=== PATIENT | female | born 1945 | race Caucasian/White ===

== ENCOUNTER 2020-07-17 01:22 | Outpatient (CLI) | payer MEDICARE, SELFPAY ==
[2020-07-17 18:46] LABS: SARS-CoV-2 RNA PCR Negative
== END 2020-07-17 01:23 | disposition home or self-care (01) ==
LOC: ANHCOVIDDT 01:22
PROVIDERS: PCP Family Medicine; Visit Provider Internal Medicine Gastroenterology
DX: Z01.812 Encounter for preprocedural laboratory examination (principal); Z20.822 Contact with and (suspected) exposure to COVID-19
CPT/HCPCS: C9803; U0003; U0005

== ENCOUNTER 2020-07-20 01:38 | Day surgery (SDC) | payer MEDICARE, SELFPAY ==
[2020-07-02 09:28] VITALS: BMI 29.0
[2020-07-20 07:54] VITALS: BP 172/72; PULSE 88; RESP 16; TEMP 36.1; O2SAT 99
[2020-07-20] MEDS: LACTATED RINGERS 1,000 ML 150 ML IV CONT (08:06)
--- NOTE | 2020-07-20 08:40 | WPDANESEPPF ---
Anes - Initial Pre Proc Eval Procedure: Operation Date: 07/20/20 09:00 Proposed Procedures p Screening Colonoscopy - Manolo Ryan MD Date/Time: 07/20/20 08:40 Surgeon: Manolo Ryan MD Pre Op Diagnosis: neoplasm screening Patient Data Age: 75 Gender: F Height: 5 ft 2 in Weight: 71 kg Last Vital Signs Temp 97 F L 07/20/20 07:54 Pulse 88 07/20/20 07:54 Resp 16 07/20/20 07:54 BP 172/72 H 07/20/20 07:54 Pulse Ox 99 07/20/20 07:54 Allergies Allergy/AdvReac Type Severity Reaction Status Date / Time No Known Allergies Allergy Verified 07/20/20 07:53 Home Medications Medication Instructions Recorded Confirmed Type calcium carbonate 600 mg(1,500 1 tablet PO DAILY 06/01/20 07/02/20 History mg)-vitamin D3 800 unit chewable tablet naproxen sodium [Aleve] 220 mg PO DAILY 07/02/20 07/02/20 History Patient hx anesthesia problems: none Family hx anesthesia problems: none PMFSH Past Medical History Medical History (Updated 07/20/20 @ 08:40 by Lev Hayden MD) Hyperlipidemia Osteoarthritis Surgical History Surgical History H/O: hysterectomy (~1994) History of cholecystectomy (Unknown) Family History Family History Father Hypertension Family history of chronic obstructive pulmonary disease Mother Hypertension Family history of diabetes mellitus in first degree relative Sibling Hypertension Social History Social History Smoking status: Never smoker Alcohol intake: never Substance use: never Substance use type: does not use Living arrangements: with family Gender identity (if verbalized by the patient): Female Spiritual care concerns: No Anes - Eval Final PreProcedure Day of Procedure 07/20/20 08:40 Patient weight: normal Heart: regular rate and rhythm Lungs: clear to auscultation Airway: Mallampati scale class II Neurological: alert and oriented Last oral intake: >/= 8 hours ASA classification: II Emergent: no Anesthetic plan: proceed Anesthesia type and monitoring: general GIVS and standard monitoring Informed Consent: The patient's anesthetic plan and its attendant risks and benefits were discussed with the patient/family/POA. Questions were solicited and answers provided to the satisfaction of the patient/family/POA.
--- NOTE | 2020-07-20 08:50 | PM.HPGS ---
History of Present Illness History of Present Illness Consent: Risks, benefits, and alternatives have been discussed and questions answered. Patient agrees to proceed with procedure. Chief complaint: neoplasm screening Narrative: Ashley Strong is a 75 year old female here for screening colonoscopy, she had one at 50 yo Review of Systems Constitutional: Constitutional: Denies headache(s) and Denies weakness Eyes: Eyes: Denies blurry vision ENT: Reports Normal hearing present, Denies headache(s) and Denies neck pain Cardiovascular: Cardiovascular: Denies chest pain and Denies dyspnea Respiratory: Respiratory: Denies dyspnea Gastrointestinal: Gastrointestinal: Reports no additional gastrointestinal complaints Genitourinary: Genitourinary: Denies dysuria Musculoskeletal: Musculoskeletal: Denies neck pain Integumentary/Breasts: Skin/Breast: Denies dry skin Neurologic: Reports Normal hearing present, Denies headache(s) and Denies weakness Psychiatric: Psychiatric: Denies anxiety Endocrine: Endocrine: Denies change in body appearance Hematologic/Lymphatic: Hematologic/Lymphatic: Denies easy bleeding Allergic/Immunologic: Allergic/Immunologic: Denies urticaria PMFSH Past Medical History Medical History (Updated 07/20/20 @ 08:51 by Manolo Ryan MD) Colon cancer screening Hyperlipidemia Osteoarthritis Surgical History Surgical History H/O: hysterectomy (~1994) History of cholecystectomy (Unknown) Family History Family History Father Hypertension Family history of chronic obstructive pulmonary disease Mother Hypertension Family history of diabetes mellitus in first degree relative Sibling Hypertension Social History Social History Smoking status: Never smoker Alcohol intake: never Substance use: never Substance use type: does not use Living arrangements: with family Gender identity (if verbalized by the patient): Female Spiritual care concerns: No Meds Home Medications and Allergies Home Medications Medication Instructions Recorded Confirmed Type calcium carbonate 600 mg(1,500 1 tablet PO DAILY 06/01/20 07/02/20 History mg)-vitamin D3 800 unit chewable tablet naproxen sodium [Aleve] 220 mg PO DAILY 07/02/20 07/02/20 History Allergies Allergy/AdvReac Type Severity Reaction Status Date / Time No Known Allergies Allergy Verified 07/20/20 07:53 Vital Signs Vital Signs - 24 hr 07/20/20 07:54 Temperature 97 F L Pulse Rate 88 Respiratory Rate 16 Blood Pressure 172/72 H Pulse Oximetry 99 Exam Const: General: comfortable and no acute distress HENMT: General nose exam: Normal nares present Eyes: General: appearance normal, both eyes and all related structures Neck: Neck: no JVD Resp: Auscultation: clear to auscultation bilaterally Cardio: Rate: regular rate Rhythm: regular rhythm GI: Inspection: non-distended GI Palp: Yes Soft to palpation Skin: General skin exam: normal color Neuro: General: gait normal Speech: normal speech Extrem: General: normal to inspection Psych: Mental Status: mental status grossly normal Assessment and Plan Assessment and plan (1) Colon cancer screening: Code(s): Z12.11 - Encounter for screening for malignant neoplasm of colon Status: Acute Assessment and Plan: will proceed with colonoscopy
[2020-07-20 09:08] VITALS: BP 133/73; PULSE 80; RESP 19; O2SAT 98
[2020-07-20 09:18] VITALS: BP 146/72; PULSE 75; RESP 20; O2SAT 98
[2020-07-20 09:28] VITALS: BP 144/75; PULSE 77; RESP 20; O2SAT 98
== END 2020-07-20 09:54 | disposition home or self-care (01) ==
PROVIDERS: PCP Family Medicine; Visit Provider Internal Medicine Gastroenterology
PROC: 0DJD8ZZ Inspection of Lower Intestinal Tract, Via Natural or Artificial Opening Endoscopic (ICD-10-PCS; CPT 45378; principal; 2020-07-20 09:00)
DX: Z12.11 Encounter for screening for malignant neoplasm of colon (principal); K57.30 Diverticulosis of large intestine without perforation or abscess without bleeding; E78.5 Hyperlipidemia, unspecified; M19.90 Unspecified osteoarthritis, unspecified site
CPT/HCPCS: G0121; C9803; J2704; J7120; U0003; U0005

== ENCOUNTER → 2021-07-26 10:09 | Outpatient (CLI) | payer MEDICARE, SELFPAY ==
--- NOTE | ~2021-07-26 | XR_ITS ---
EXAMINATION: XR chest 2V DATE: 07/26/2021 10:22 INDICATION: Chronic cough. Prior COVID. TECHNIQUE: PA and lateral views of the chest were obtained. COMPARISON: None FINDINGS: Indeterminate 1.2 cm nodular opacity at the lingula. The lungs are otherwise clear with no other airs pace opacities, pulmonary edema, pleural effusion or pneumothorax. The cardiomediastinal silhouette i s normal. Mild thoracic kyphosis and mild dextrocurvature with moderate to severe spondylosis. Cholec ystectomy clips in right upper quadrant. IMPRESSION: 1. Indeterminate 1.2 cm nodule at the lingula. Recommend chest CT for further evaluation. Reviewed, dictated and finalized at location A. LIANCE TECHNICIAN IMPRESSION: 1. Indeterminate 1.2 cm nodule at the lingula. Recommend chest CT for further e valuation.
== END ==
PROVIDERS: PCP Nurse Practitioner Family; Visit Provider Nurse Practitioner Family
DX: R05.3 Chronic cough (principal)
CPT/HCPCS: 71046

== ENCOUNTER 2021-08-16 07:25 | Outpatient (CLI) | payer MEDICARE, SELFPAY ==
--- NOTE | 2021-08-16 07:26 | ECHO_ITS ---
Patient Info Name: Ashley Strong Age: 76 years : 1945 Gender: Female Ht: 62 in Wt: 158 lbs BSA: 1.79 m2 HR: 97 bpm BP: 171 / 83 mmHg Heart Rhythm: Sinus Rhythm Technical Quality: Fair Exam Date: 08/16/2021 7:42 AM Exam Location: [facility] Patient Status: Outpatient Admit Date: 08/16/2021 Staff Ordering Physician: Eda Graves NP Generator Worker: Mally Pinzon RDCS Attending Provider: Eda Graves NP Referring Physician: Ely BECERRA; Exam Type: CA echo doppler color flow Study Info Indications R94.31 - Abnormal electrocardiogram ECG EKG Complete two-dimensional, color flow and Doppler transthoracic echocardiogram is performed. Strain analysis performed. Summary 1. Complete two-dimensional, color flow and Doppler transthoracic echocardiogram is performed. 2. Strain analysis performed. 3. Left ventricular chamber dimension is normal. 4. Left ventricular systolic function is normal, estimated at 65-70%. 5. The left ventricular diastolic function is grade I diastolic dysfunction. 6. There is mildly increased left ventricular wall thickness. 7. Global longitudinal strain is normal at -19 %. 8. Left atrial chamber dimension is mildly enlarged. 9. There is mild tricuspid valve regurgitation. 10. Mild pulmonary hypertension, estimated pulmonary arterial systolic pressure is 43 mmHg. Left Ventricle Left ventricular chamber dimension is normal. Left ventricular systolic function is normal, estimated at 65-70%. There is mildly increased left ventricular wall thickness. The left ventricular diastolic function is grade I diastolic dysfunction. Global longitudinal strain is normal at -19 %. Right Ventricle Right ventricular chamber dimension is normal. Right ventricular systolic function is normal. Left Atria Left atrial chamber dimension is mildly enlarged. Right Atria Right atrial chamber dimension is normal. Atrial Septum Intact interatrial septum visualized by color flow imaging. Aortic Valve The aortic valve is trileaflet. There is no aortic valve sclerosis. There is no aortic valve stenosis. There is trace aortic valve regurgitation. Pulmonic Valve The pulmonic valve is normal. There is no pulmonic valve stenosis. There is trace pulmonic regurgitation. Mitral Valve The mitral valve has normal leaflets. There is no mitral valve stenosis. There is trace mitral valve regurgitation. Tricuspid Valve The tricuspid valve leaflets are normal. There is no significant tricuspid valve stenosis. There is mild tricuspid valve regurgitation. Mild pulmonary hypertension, estimated pulmonary arterial systolic pressure is 43 mmHg. Pericardium/Pleural The pericardium appears normal. There is no pericardial effusion. Inferior Vena Cava Normal inferior vena cava with >50% collapse upon inspiration consistent with normal right atrial pressure, 10 mmHg. Aorta The aortic root size at the sinus of Valsalva is normal. Left Ventricular Outflow Tract Name Value Normal LVOT 2D LVOT Diameter 1.9 cm LVOT Doppler LVOT Peak Gradient 4 mmHg
--- NOTE | 2021-08-16 07:27 | EST_ITS ---
Patient Info Name: Ashley Strong Age: 76 years : 1945 Gender: Female Ht: 62 in Wt: 158 lbs BSA: 1.79 m2 HR: 81 bpm BP: 152 / 76 mmHg Heart Rhythm: Sinus Rhythm Exam Date: 08/16/2021 8:42 AM Exam Location: [facility] Patient Status: Outpatient Admit Date: 08/16/2021 Staff Ordering Physician: Eda Graves NP Attending Provider: Eda Graves NP Exercise Technologist: Carline Cabrera CT Nurse: TUCKER CASTANEDA Exam Type: CA stress test treadmill Study Info Indications R94.31 - Abnormal electrocardiogram ECG EKG A treadmill exercise stress test was performed. Summary 1. Exercise capacity impaired at <6 METS[address] 2[address] No abnormal ST-T wave changes with exercise. 3. Hypertensive blood pressure response to exercise. Protocol: Bong Stress ECG Details Stage: REST Duration (min): 1 min : 5 sec Speed (mph): 0.0 Grade (%): 0 HR (bpm): 83 SBP (mmHg): 152 DBP (mmHg): 76 METS: --- Stage: REST Duration (min): 25 min : 4 sec Speed (mph): 0.0 Grade (%): 0 HR (bpm): 80 SBP (mmHg): 152 DBP (mmHg): 76 METS: --- Stage: STAGE 1 Duration (min): 1 min : 0 sec Speed (mph): 1.7 Grade (%): 10 HR (bpm): 126 SBP (mmHg): 152 DBP (mmHg): 76 METS: --- Stage: STAGE 1 Duration (min): 2 min : 0 sec Speed (mph): 1.7 Grade (%): 10 HR (bpm): 144 SBP (mmHg): 152 DBP (mmHg): 76 METS: --- Stage: STAGE 1 Duration (min): 3 min : 0 sec Speed (mph): 1.7 Grade (%): 10 HR (bpm): 153 SBP (mmHg): 197 DBP (mmHg): 64 METS: --- Stage: RECOVERY Duration (min): 0 min : 59 sec Speed (mph): 0.0 Grade (%): 0 HR (bpm): 135 SBP (mmHg): 197 DBP (mmHg): 64 METS: --- Stage: RECOVERY Duration (min): 1 min : 59 sec Speed (mph): 0.0 Grade (%): 0 HR (bpm): 124 SBP (mmHg): 197 DBP (mmHg): 64 METS: --- Stage: RECOVERY Duration (min): 2 min : 59 sec Speed (mph): 0.0 Grade (%): 0 HR (bpm): 111 SBP (mmHg): 216 DBP (mmHg): 88 METS: --- Stage: RECOVERY Duration (min): 3 min : 59 sec Speed (mph): 0.0 Grade (%): 0 HR (bpm): 100 SBP (mmHg): 209 DBP (mmHg): 79 METS: --- Stage: RECOVERY Duration (min): 4 min : 59 sec Speed (mph): 0.0 Grade (%): 0 HR (bpm): 98 SBP (mmHg): 203 DBP (mmHg): 78 METS: --- Stage: RECOVERY Duration (min): 5 min : 59 sec Speed (mph): 0.0 Grade (%): 0 HR (bpm): 101 SBP (mmHg): 203 DBP (mmHg): 78 METS: --- Stage: RECOVERY Duration (min): 6 min : 59 sec Speed (mph): 0.0 Grade (%): 0 HR (bpm): 96 SBP (mmHg): 178 DBP (mmHg): 77 METS: --- Stage: RECOVERY Duration (min): 7 min : 3 sec Speed (mph): 0.0 Grade (%): 0 HR (bpm): 98 SBP (mmHg): 178 DBP (mmHg): 77 METS: --- Rest HR:
== END 2021-08-16 07:26 | disposition home or self-care (01) ==
LOC: ANHCARD 07:26
PROVIDERS: PCP Nurse Practitioner Family; Visit Provider Nurse Practitioner Family
DX: I27.20 Pulmonary hypertension, unspecified (principal); I36.1 Nonrheumatic tricuspid (valve) insufficiency
CPT/HCPCS: 93017; 93306

== ENCOUNTER → 2021-08-23 12:23 | Outpatient (CLI) | payer MEDICARE, SELFPAY ==
--- NOTE | ~2021-08-23 | CT_ITS ---
EXAMINATION: CT diagnostic chest w con DATE: 08/23/2021 13:08 INDICATION: Solitary pulmonary nodule, cough TECHNIQUE: Transaxial computed tomographic images of the chest were obtained after the administration of 75 cc of Omnipaque 350 intravenous contrast. The dose-length product (DLP) was 239.98 mGy-cm. Ite rative reconstruction was used. COMPARISON: None FINDINGS: There is a 10 mm round nodule of the lingula on image 59. No additional pulmonary nodules a re identified. The lungs are free of acute airspace opacities. There is no pleural effusion or pneumo thorax. The heart size is normal. No pathologically enlarged thoracic lymph nodes are identified. The re is moderate thoracic spondylosis. The gallbladder is surgically absent. There is a small sliding h iatal hernia. IMPRESSION: 1. Indeterminate 10 mm nodule of the lingula which may be benign or malignant. Consider CT in three m onths, PET/CT, or CT-guided biopsy. Reviewed, dictated and finalized at location B. S CLERK IMPRESSION: 1. Indeterminate 10 mm nodule of the lingula which may be benign or malignant. Consider CT in three months, PET/CT, or CT-guided biopsy.
[2021-08-23 12:50] LABS: Estimated Glomerular Filt Rate > 60
== END ==
PROVIDERS: PCP Family Medicine; Visit Provider Family Medicine
DX: R91.1 Solitary pulmonary nodule (principal); R05.3 Chronic cough; M47.814 Spondylosis without myelopathy or radiculopathy, thoracic region; K44.9 Diaphragmatic hernia without obstruction or gangrene
CPT/HCPCS: 71260; Q9967

== ENCOUNTER → 2021-09-29 10:20 | Outpatient (CLI) | payer MEDICARE, SELFPAY ==
--- NOTE | ~2021-09-29 | XR_ITS ---
EXAMINATION: XR knee RT 2V DATE: 09/29/2021 10:38 INDICATION: Chronic right knee pain. TECHNIQUE: 2 views of right knee standing were obtained. COMPARISON: None. FINDINGS: Bone alignment is normal. No fracture. Joint spaces are well maintained. There is no knee j oint effusion. IMPRESSION: 1. Normal right knee. Reviewed, dictated and finalized at location A. IMPRESSION: 1. Normal right knee.
--- NOTE | ~2021-09-29 | XR_ITS ---
EXAMINATION: XR hip RT 2V w AP pelvis DATE: 09/29/2021 10:38 INDICATION: Right hip pain. TECHNIQUE: An anteroposterior view of the pelvis and 2 views of right hip were obtained. COMPARISON: None. FINDINGS: Bone alignment is normal. No fracture. There is mild osteoarthritis of the hips characteriz ed by tiny osteophytes. Osteitis pubis is noted. IMPRESSION: 1. Mild osteoarthritis of the hips. Reviewed, dictated and finalized at location A.
== END ==
PROVIDERS: PCP Nurse Practitioner Family; Visit Provider Nurse Practitioner Family
DX: M25.561 Pain in right knee (principal); M16.0 Bilateral primary osteoarthritis of hip
CPT/HCPCS: 73502; 73560

== ENCOUNTER 2021-12-06 07:18 | Outpatient (CLI) | payer MEDICARE, SELFPAY ==
--- NOTE | ~2021-12-06 | PE_ITS ---
EXAMINATION: PET skull to mid thigh DATE: 12/06/2021 09:24 INDICATION: Solitary pulmonary nodule TECHNIQUE: Blood glucose level was 97 mg/dL. 10.488 mCi of 18-fluorodeoxyglucose (18-FDG) was adminis tered i.v. Low dose computed tomography (CT) images were acquired from the base of the brain to the p roximal thighs for attenuation correction and anatomic localization. Positron emission tomography (PE T) images were acquired in the same distribution beginning 60 minutes after injection. Images includi ng fused PET/CT images were reconstructed in axial, coronal, and sagittal planes. Automated exposure control technique was employed. The dose-length product was 738.00mGy-cm. COMPARISON: Chest CT dated 09/04/2021 FINDINGS: Head/neck: There is symmetric increased activity in the oral cavity, palatine and lingual tonsils, parotid gland s, submandibular glands, laryngeal muscles and ocular muscles without CT correlate, likely physiolog ic. No pathologically enlarged cervical lymphadenopathy or suspicious foci of increased FDG uptake in the visualized head or neck. Chest: Normal change in size of a 10 mm nodule at the lingula which is without FDG uptake. No pneumonia, mary picious pulmonary nodules, pulmonary edema or pleural effusion. Heart size is normal. No pericardial effusion. Mild scattered atherosclerotic calcific a solitary normal caliber thoracic aorta. No pathol ogically enlarged or FDG avid thoracic lymphadenopathy. Abdomen/pelvis/proximal thighs: Physiologic renal accumulation and excretion of FDG activity in the kidneys, bladder and along portio ns of ureters. Normal degree and heterogenous pattern of increased uptake throughout the liver withou t radiologic correlate or dominant FDG avid lesion. Cholecystectomy clips the gallbladder fossa. The pancreas, spleen and bilateral adrenal glands are normal. Moderate scattered diverticulosis probably along the sigmoid and descending colon without adjacent from 3 change to suggest diverticulitis. Norm al appendix. Mild uptake scattered throughout the bowels without radiologic correlate, also likely ph ysiologic. No pathologically enlarged or FDG avid lymphadenopathy in the abdomen, pelvis or proximal thighs. Musculoskeletal: Severe spondylosis in the lower cervical, lower thoracic and upper lumbar spine. There is mild increa sed FDG uptake associated with severe disc height loss with degenerative endplate changes at C5-C6. N o suspicious lytic, blastic or other FDG avid bone lesions. There is mild increased uptake overlying the bilateral greater trochanters, right greater left consistent with trochanteric bursitis. There is mild increased FDG uptake along the reflected head of the right rectus femoris tendon without radiol ogic correlate likely related to tendinopathy. Relatively symmetric likely physiologic mild uptake th roughout the musculature at the bilateral upper extremities which is most prominent in the hands and forearms. IMPRESSION: 1. No interval change in a 10 mm nodule at the lingula which is without FDG uptake favoring a benign etiology other sequela of old granulomatous disease or hamartoma. Recommend additional 1 year follow- up low-dose noncontrast chest CT. Reviewed, dictated and finalized at location B. IMPRESSION: 1. No interval change in a 10 mm nodule at the lingula which is without FDG upt kristi favoring a benign etiology other sequela of old granulomatous disease or verma martoma. Recommend additional 1 year follow-up low-dose noncontrast chest CT.
[2021-12-06 07:51] LABS: Glucose Point of Care 97 mg/dl (65-105)
== END 2021-12-06 07:19 | disposition home or self-care (01) ==
PROVIDERS: PCP Family Medicine; Visit Provider Internal Medicine Pulmonary Disease
DX: R91.1 Solitary pulmonary nodule (principal)
CPT/HCPCS: 78815; A9552

== ENCOUNTER 2022-03-22 15:23 | Outpatient (CLI) | payer MEDICARE, SELFPAY ==
--- NOTE | ~2022-03-22 | MM_ITS ---
EXAMINATION: MM screening juliana BI w juliana HISTORY: Screening mammogram, family history of breast cancer in her sister. TECHNIQUE: Craniocaudal and mediolateral oblique 3-D tomosynthesis images were obtained and synthetic 2-D images were generated. CAD analysis was submitted and interpreted. COMPARISON: No prior mammogram is available for comparison at this institution. BREAST PARENCHYMAL COMPOSITION: The breasts are heterogeneously dense, which may obscure small masses . FINDINGS: No suspicious mass, calcification, or architectural distortion are identified in either michelle ast to suggest malignancy. IMPRESSION: 1. No mammographic evidence of malignancy. 2. Recommend routine screening mammography in one year. BI-RADS Category 1: Negative Reviewed, dictated and finalized at location A.
--- NOTE | ~2022-03-22 | DEXA_ITS ---
Bone Density Report Name: MARY SAINI Age: 76 Sex: Female Ethnicity: White Date of : 1945 Indication: postmenopausal; screening for osteoporosis; hysterectomy; Referring Provider: CARROLL BOB Study: Bone densitometry was performed. Exam Date: March 22, 2022 Accession number: [id number] Bone Density: Region BMD T-score Z-score Classification AP Spine(L1-L4) 0.850 -1.8 0.7 Osteopenia Femoral Neck (Left) 0.618 -2.1 0.1 Osteopenia Total Hip (Left) 0.777 -1.4 0.5 Osteopenia Femoral Neck (Right) 0.624 -2.0 0.1 Osteopenia Total Hip (Right) 0.748 -1.6 0.3 Osteopenia Total Hip Mean 0.763 -1.5 0.4 Osteopenia World Health Organization criteria for BMD impression classify patients as: Normal (T-score at or above -1.0), Osteopenia (T-score between -1.0 and -2.5), or Osteoporosis (T-score at or below -2.5). 10-year Fracture Risk(1): Major Osteoporotic Fracture 14% Hip Fracture 3.8% Reported Risk Factors: [place] (), Neck BMD=0.618, BMI=28.6 (1) FRAX(R) Version 3.08. Fracture probability calculated for an untreated patient. Fracture probability may be lower if the patient has received treatment. Clinical Information Provided by Patient: Has used the following medications: Vitamin D, Calcium Has the following medical conditions: Hysterectomy Patient maximum height was 63 Menopause Age: 48 No regular weight bearing exercise Drinks caffeinated beverages Onset of menses at age 13 Number of children 3 Impression: The patient has low bone mass, based on the Left Femoral Neck T-score. The patient has an estimated ten-year risk of hip fracture of 3.8% and an estimated ten-year risk of major fracture of 14%, based on the WHO FRAX algorithm. Discussion: BONE DENSITY IS LOW AT ONE OR MORE SKELETAL SITES. THE PATIENT'S BMD AND CLINICAL RISK FACTORS CONTRIBUTE TO THIS PATIENT'S INCREASED RISK OF FRACTURE. This patient's lowest T-score is low at one or more skeletal sites. It meets the World Health Organization's (WHO) criteria for ?low bone mass? (T-score between -1.0 and -2.5). The patient's 10-year risk of hip fracture as calculated by FRAX exceeds the threshold where pharmacological therapy is recommended by the National Osteoporosis Foundation (NOF). However, all treatment decisions require clinical judgment and consideration of individual patient factors, including patient preferences, comorbidities, previous drug use, risk factors not captured in the FRAX model (e.g., frailty, falls, vitamin D deficiency, increased bone turnover, interval significant decline in bone density) and possible under or overestimation of fracture risk by FRAX. The patient should follow a healthful lifestyle (good nutrition with adequate calcium and vitamin D, and appropriate weight-bearing exer
== END 2022-03-22 15:24 | disposition home or self-care (01) ==
PROVIDERS: PCP Family Medicine; Visit Provider Nurse Practitioner Family
DX: Z12.31 Encounter for screening mammogram for malignant neoplasm of breast (principal); Z78.0 Asymptomatic menopausal state; M85.88 Other specified disorders of bone density and structure, other site; M85.852 Other specified disorders of bone density and structure, left thigh; M85.851 Other specified disorders of bone density and structure, right thigh
CPT/HCPCS: 77063; 77067; 77080

== ENCOUNTER 2022-05-19 08:08 | Outpatient (CLI) | payer MEDICARE, SELFPAY ==
--- NOTE | ~2022-05-19 | XR_ITS ---
XR chest 2V 05/19/2022 08:37 Indication: Solitary pulmonary nodule follow-up Procedure: PA and lateral views of the chest Comparison: 07/26/[address] dated 08/23/2021 Findings: Stable 10 mm lingular nodule. Heart size normal. No focal air space disease, pulmonary dennis a, pleural effusion or suspected pneumothorax. No acute osseous abnormality. Impression: 1: Stable lingular nodule. Recommend follow-up low dose CT chest in 12 months. Reviewed, dictated and finalized at location A. E DRILLER Impression: 1: Stable lingular nodule. Recommend follow-up low dose CT chest in 12 months.
[2022-05-19 08:45] LABS: Basophils Percent Auto 0.6 % (0.2-1.2); Eosinophils Absolute Auto 0.1 K/mm3 (0-0.3); Eosinophils Percent Auto 1.7 % (0-4.4); Hematocrit 33.6 % (37.0-47.0); Hemoglobin 10.7 g/dL (12.0-15.0); Immature Granulocyte Absolute 0.02 K/mm3 (0.00-0.031); Immature Granulocyte Percent A 0.3 % (0-0.5); Lymphocytes Absolute Auto 1.74 K/mm3 (0.9-3.2); Mean Corpuscular HGB Conc 31.8 g/dl (32-36); Mean Corpuscular Hemoglobin 29.2 pg (26-34); Mean Corpuscular Volume 91.8 fl (80-100); Mean Platelet Volume 8.5 fl (7.4-10.4); Monocytes Absolute Auto 0.7 K/mm3 (0.1-0.6); Monocytes Percent Auto 9.1 % (2.6-8.5); Neutrophils Absolute Auto 4.7 K/mm3 (1.3-6.7); Neutrophils Percent Auto 64.3 % (45.5-73.1); Platelet Count Result 295 k/mm3 (150-375); Red Blood Count 3.66 M/mm3 (4.2-5.4); Red Cell Distribution Width 14.6 % (11.5-14.5); White Blood Count 7.3 K/mm3 (4.5-10.0)
[2022-05-19 09:00] LABS: Alanine Aminotransferase 27 U/L (6-35); Albumin Level 4.1 g/dL (3.5-5.1); Alkaline Phosphatase 112 U/L (38-126); Anion Gap 7 mmol/L (8-16); Aspartate Amino Transferase 42 U/L (14-36); Bilirubin,Total 0.5 mg/dL (0.2-1.3); Blood Urea Nitrogen 15 mg/dL (7-17); Calcium 8.8 mg/dL (8.4-10.2); Carbon Dioxide 26 mmol/L (22-30); Chloride 104 mmol/L (98-107); Cholesterol 167 mg/dL (0-200); Estimated Glomerular Filt Rate > 60; Glucose 97 mg/dL (65-110); HDL Direct 41 mg/dL; Sodium 137 mmol/L (137-145); Triglycerides 147 mg/dL (<150)
[2022-05-19 09:11] LABS: LDL Cholesterol Direct 81 mg/dL
[2022-05-19 09:25] LABS: Iron 17 ug/dL (37-170)
[2022-05-19 09:35] LABS: Percent Iron Saturation 4 % (20-50)
[2022-05-19 10:02] LABS: Ferritin 9.97 ng/mL (11.1-264)
== END 2022-05-19 08:09 | disposition home or self-care (01) ==
PROVIDERS: PCP Family Medicine; Referring Provider Nurse Practitioner Family; Visit Provider Nurse Practitioner
DX: D50.9 Iron deficiency anemia, unspecified (principal); R91.1 Solitary pulmonary nodule; I10 Essential (primary) hypertension
CPT/HCPCS: 36415; 71046; 80053; 80061; 82728; 83540; 83550; 84443; 85025

== ENCOUNTER 2022-05-30 00:44 | Day surgery (SDC) | payer MEDICARE, SELFPAY ==
[2022-05-18 14:17] VITALS: BMI 28.9
[2022-05-30 08:50] VITALS: BP 160/72; PULSE 88; RESP 18; TEMP 36.2; O2SAT 100; BMI 28.0
[2022-05-30] MEDS: LACTATED RINGERS 1,000 ML 150 ML IV CONT (09:08)
--- NOTE | 2022-05-30 09:22 | PM.HPGS ---
History of Present Illness History of Present Illness Consent: Risks, benefits, and alternatives have been discussed and questions answered. Patient agrees to proceed with procedure. Chief complaint: SANTOS, melena, hemorrhoids Narrative: Ashley Strong is a 77 year old female with mild anemia and rectal bleeding, last colonoscopy 1.5 year ago with diverticulosis. Review of Systems Constitutional: Constitutional: Denies headache(s) and Denies weakness Eyes: Eyes: Denies blurry vision ENT: Reports Normal hearing present, Denies headache(s) and Denies neck pain Cardiovascular: Cardiovascular: Denies chest pain and Denies dyspnea Respiratory: Respiratory: Denies dyspnea Gastrointestinal: Gastrointestinal: Reports no additional gastrointestinal complaints Genitourinary: Genitourinary: Denies dysuria Musculoskeletal: Musculoskeletal: Denies neck pain Integumentary/Breasts: Skin/Breast: Denies dry skin Neurologic: Reports Normal hearing present, Denies headache(s) and Denies weakness Psychiatric: Psychiatric: Denies anxiety Endocrine: Endocrine: Denies change in body appearance Hematologic/Lymphatic: Hematologic/Lymphatic: Denies easy bleeding Allergic/Immunologic: Allergic/Immunologic: Denies urticaria [facility] Past Medical History Medical History (Updated 04/18/22 @ 08:27 by Sherrie Salvador, GARRETT) Chronic constipation Diverticula of intestine Essential hypertension Hematochezia Hyperlipidemia SANTOS (iron deficiency anemia) SANTOS (iron deficiency anemia) OAB (overactive bladder) Osteoarthritis Osteopenia Surgical History Surgical History H/O: hysterectomy (~1994) History of bladder surgery History of cholecystectomy (Unknown) Family History Family History Father Hypertension Family history of chronic obstructive pulmonary disease Mother Hypertension Family history of diabetes mellitus in first degree relative Sibling Hypertension Social History Social History Social History: Ashley is and lives in [place], they have 3 children-6 grandchildren-3 great-grandchildren. 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 Smoking status: Never smoker Alcohol intake: never Substance use: never Substance use type: does not use Living arrangements: with family Gender identity (if verbalized by the patient): Female Sexual Orientation (if Verbalized by the Patient): Straight or Heterosexual Spiritual care concerns: No Meds Home Medications and Allergies Home Medications Medication Instructions Recorded Confirmed Type calcium carbonate 600 mg-vitamin 1 tablet PO DAILY 06/01/20 05/30/22 History D3 20 mcg (800 unit) chewable tablet (Caltrate 600 plus D) losartan 25 mg tablet 25 mg PO DAILY #90 tabs 12/05/21 05/30/22 Rx multivitamin with iron 1 tablet PO DAILY 01/03/22 05/30/22 History oxybutynin chloride 5 mg 5 mg PO DAILY #90 tabs 03/27/22 05/30/22 Rx tablet,extended release 24 hr hydrocortisone acetate 25 mg 25 mg RECTAL BID #20 ea 04/20/22 05/30/22 Rx rectal suppository (Anusol-HC) polyethylene glycol 3350 17 gram 17 g PO DAILY 05/18/22 05/30/22 History oral powder packet (Miralax) Allergies Allergy/AdvReac Type Severity Reaction Status Date / Time No Known Allergies Allergy Verified 05/30/22 08:57 Vital Signs Vital Signs - 24 hr 05/30/22 08:50 Temperature 97.1 F L Pulse Rate 88 Respiratory Rate 18 Blood Pressure 160/72 H Pulse Oximetry 100 Oxygen Delivery Room Air Exam Const: General: comfortable and no acute distress HENMT: Face/Nose/Sinus: Normal nares present Eyes: General: appearance normal, both eyes and all related structures Neck: Neck: no JVD Resp: Auscultation: clear to auscultation bilaterally Cardio: Rate: regu
--- NOTE | 2022-05-30 09:23 | WPDANESEPPF ---
Anes - Initial Pre Proc Eval Procedure: Operation Date: 05/30/22 10:15 Proposed Procedures p Esophagogastroduodenoscopy & Colonoscopy - Manolo Ryan MD s [facility] Hemorrhoid Treatment - Manolo Ryan MD Date/Time: 05/30/22 09:23 Surgeon: Manolo Ryan MD Pre Op Diagnosis: SANTOS, melena, hemorrhoids Patient Data Age: 77 Gender: F Height: 1.57 m Weight: 69.5 kg Last Vital Signs Temp 97.1 F L 05/30/22 08:50 Pulse 88 05/30/22 08:50 Resp 18 05/30/22 08:50 BP 160/72 H 05/30/22 08:50 Pulse Ox 100 05/30/22 08:50 O2 Del Method Room Air 05/30/22 08:50 Allergies Allergy/AdvReac Type Severity Reaction Status Date / Time No Known Allergies Allergy Verified 05/30/22 08:57 Home Medications Medication Instructions Recorded Confirmed Type calcium carbonate 600 mg-vitamin 1 tablet PO DAILY 06/01/20 05/30/22 History D3 20 mcg (800 unit) chewable tablet (Caltrate 600 plus D) losartan 25 mg tablet 25 mg PO DAILY #90 tabs 12/05/21 05/30/22 Rx multivitamin with iron 1 tablet PO DAILY 01/03/22 05/30/22 History oxybutynin chloride 5 mg 5 mg PO DAILY #90 tabs 03/27/22 05/30/22 Rx tablet,extended release 24 hr hydrocortisone acetate 25 mg 25 mg RECTAL BID #20 ea 04/20/22 05/30/22 Rx rectal suppository (Anusol-HC) polyethylene glycol 3350 17 gram 17 g PO DAILY 05/18/22 05/30/22 History oral powder packet (Miralax) Patient hx anesthesia problems: none Family hx anesthesia problems: none Results Review: All pre-operative results and documents have been reviewed as part of the pre-operative evaluation. [facility] Past Medical History Medical History (Updated 04/18/22 @ 08:27 by Sherrie Salvador APRN) Chronic constipation Diverticula of intestine Essential hypertension Hematochezia Hyperlipidemia SANTOS (iron deficiency anemia) SANTOS (iron deficiency anemia) OAB (overactive bladder) Osteoarthritis Osteopenia Surgical History Surgical History H/O: hysterectomy (~1994) History of bladder surgery History of cholecystectomy (Unknown) Family History Family History Father Hypertension Family history of chronic obstructive pulmonary disease Mother Hypertension Family history of diabetes mellitus in first degree relative Sibling Hypertension Social History Social History Social History: Ashley is and lives in [place], they have 3 children-6 grandchildren-3 great-grandchildren. 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 Smoking status: Never smoker Alcohol intake: never Substance use: never Substance use type: does not use Living arrangements: with family Gender identity (if verbalized by the patient): Female Sexual Orientation (if Verbalized by the Patient): Straight or Heterosexual Spiritual care concerns: No Anes - Eval Final PreProcedure Day of Procedure 05/30/22 09:23 Patient weight: normal Heart: regular rate and rhythm Lungs: clear to auscultation Airway: Mallampati scale class II Neurological: alert and oriented Last oral intake: >/= 8 hours ASA classification: III Emergent: no Anesthetic plan: proceed Anesthesia type and monitoring: general GIVS and standard monitoring Results Review: All pre-operative results and documents have been reviewed as part of the pre-operative evaluation. Informed Consent: The patient's anesthetic plan and its attendant risks and benefits were discussed with the patient/family/POA. Questions were solicited and answers provided to the satisfaction of the patient/family/POA.
[2022-05-30 09:51] VITALS: BP 127/76; PULSE 98; RESP 20; O2SAT 99
--- NOTE | 2022-05-30 09:51 | SUR.OPER ---
EGD START: 926; END: 932. COLONOSCOPY START: 936; END: 948.
[2022-05-30 10:01] VITALS: BP 107/67; PULSE 91; RESP 30; O2SAT 99
[2022-05-30 10:11] VITALS: BP 121/78; PULSE 93; RESP 22; O2SAT 100
== END 2022-05-30 10:21 | disposition home or self-care (01) ==
PROVIDERS: PCP Family Medicine; Visit Provider Internal Medicine Gastroenterology
PROC: 0DJ08ZZ Inspection of Upper Intestinal Tract, Via Natural or Artificial Opening Endoscopic (ICD-10-PCS; CPT 43235; principal; 2022-05-30 10:15)
DX: K52.9 Noninfective gastroenteritis and colitis, unspecified (principal); D50.9 Iron deficiency anemia, unspecified; K92.1 Melena; K57.30 Diverticulosis of large intestine without perforation or abscess without bleeding; K29.50 Unspecified chronic gastritis without bleeding; E78.5 Hyperlipidemia, unspecified; I10 Essential (primary) hypertension; N32.81 Overactive bladder; M85.80 Other specified disorders of bone density and structure, unspecified site
CPT/HCPCS: 45380; 43249; 43239; 88305; C1726; J2704; J7120

== ENCOUNTER 2022-11-27 10:00 | Outpatient (CLI) | payer MEDICARE, SELFPAY ==
--- NOTE | ~2022-11-27 | XR_ITS ---
EXAMINATION: XR chest 2V 11/27/2022 10:21 INDICATION: Solitary pulmonary nodule PROCEDURE: 2 view chest COMPARISON: Comparison to multiple prior studies sequentially, with oldest reviewed study dated 05/19/2022. FINDINGS: Slightly increased size of 11 mm lingular nodule. Correlation with CT recommended. No acute focal pneumonia, edema, pleural effusion or pneumothorax. The cardiomediastinal silhouette is within normal limits. There are no pleural effusions. There is no pneumothorax suspected. IMPRESSION: 1: Slightly increased size of 11 mm lingular nodule. Follow-up CT chest recommended.. Reviewed, dictated and finalized at location [] IMPRESSION: 1: Slightly increased size of 11 mm lingular nodule. Follow-up CT chest recomm ended..
== END 2022-11-27 10:01 | disposition home or self-care (01) ==
PROVIDERS: PCP Family Medicine; Visit Provider Internal Medicine Pulmonary Disease
DX: R91.1 Solitary pulmonary nodule (principal)
CPT/HCPCS: 71046

== ENCOUNTER 2022-12-12 09:11 | Outpatient (CLI) | payer MEDICARE, SELFPAY ==
--- NOTE | ~2022-12-12 | CT_ITS ---
CT Scan of the Chest without Contrast: Clinical Indication: Solitary pulmonary nodule Technique: Contiguous sections were acquired throughout the chest without intravenous contrast. Dose reduction technique was used on this scan by utilizing automated exposure control and iterative recon struction technique. The dose-length product (DLP) was 90.31 mGy-cm. COMPARISON: 08/23/2021 Findings: There is no evidence of any significant mediastinal, hilar or axillary lymphadenopathy. The mediastin al soft tissues appear normal. Small hiatal hernia noted. There is no evidence of pleural or pericardial effusion. Stable 1 cm left upper lobe pulmonary nodule noted. Right lung clear. Images through the upper abdomen reveal no abnormalities. Impression: Stable 1 cm left upper lobe pulmonary nodule. Reviewed, dictated and finalized at [facility]. Impression: Stable 1 cm left upper lobe pulmonary nodule.
== END 2022-12-12 09:12 | disposition home or self-care (01) ==
PROVIDERS: PCP Family Medicine; Visit Provider Internal Medicine Pulmonary Disease
DX: R91.1 Solitary pulmonary nodule (principal)
CPT/HCPCS: 71250

== ENCOUNTER 2023-02-15 07:14 | Outpatient (CLI) | payer MEDICARE, SELFPAY ==
--- NOTE | ~2023-02-15 | US_ITS ---
EXAMINATION: US soft tissue abdomen INDICATION: Unspecified abdominal hernia without obstruction TECHNIQUE: Limited high-resolution ultrasound is performed on the anterior abdominal wall in the area of clinical concern. COMPARISON: PET/CT, 12/06/2021 FINDINGS: There is a fat-containing hernia just above the umbilicus. The neck measures approximately 1.6 cm. No associated herniated bowel is seen. IMPRESSION: 1. Fat-containing hernia just superior to the umbilicus. Reviewed, dictated and finalized at location L.
== END 2023-02-15 07:15 | disposition home or self-care (01) ==
PROVIDERS: PCP Family Medicine; Visit Provider Nurse Practitioner Family
DX: K46.9 Unspecified abdominal hernia without obstruction or gangrene (principal)
CPT/HCPCS: 76705

== ENCOUNTER 2023-05-29 13:33 | Outpatient (CLI) | payer MEDICARE, SELFPAY ==
--- NOTE | ~2023-05-29 | MM_ITS ---
EXAMINATION: MM screening juliana BI w juliana HISTORY: Screening TECHNIQUE: Craniocaudal and mediolateral oblique 3-D tomosynthesis images were obtained and synthetic 2-D images were generated. CAD analysis was submitted and interpreted. COMPARISON: 03/22/2022 BREAST PARENCHYMAL COMPOSITION: There are scattered areas of fibroglandular density. FINDINGS: There is no evidence of suspicious mass, calcification, or architectural distortion to sugg est malignancy in either breast. There has been no suspicious interval change. IMPRESSION: 1. No mammographic evidence of malignancy. 2. Recommend routine screening mammography in one year. BI-RADS Category 1: Negative Reviewed, dictated and finalized at location A. 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
== END 2023-05-29 13:34 | disposition home or self-care (01) ==
PROVIDERS: PCP Family Medicine; Visit Provider Nurse Practitioner Family
DX: Z12.31 Encounter for screening mammogram for malignant neoplasm of breast (principal)
CPT/HCPCS: 77063; 77067

== ENCOUNTER 2023-06-20 10:59 | Outpatient (CLI) | payer MEDICARE, SELFPAY ==
--- NOTE | ~2023-06-20 | XR_ITS ---
Clinical Indication: Solitary pulmonary nodule PA and lateral views of the chest: Comparison: 11/27/2022 Findings: 1 cm nodule present in the left upper lobe/lingula. Right lung clear.. Cardiomediastinal s ilhouette is within normal limits. Bones and soft tissues are unremarkable. Impression: Stable 1 cm lingular nodule. Reviewed, dictated and finalized at [facility]. 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
== END 2023-06-20 11:00 | disposition home or self-care (01) ==
PROVIDERS: PCP Family Medicine; Visit Provider Physician Assistant
DX: R91.1 Solitary pulmonary nodule (principal)
CPT/HCPCS: 71046

== ENCOUNTER 2023-06-28 01:19 | Day surgery (SDC) | payer MEDICARE, SELFPAY ==
[2023-06-04 15:03] VITALS: BMI 27.8
--- NOTE | 2023-06-26 10:07 | SUR.PREOP ---
Patient called regarding upcoming procedure. Reviewed preop instructions, appointment times, and procedure prep.
[2023-06-28 08:24] VITALS: BP 149/71; PULSE 92; RESP 20; TEMP 36.3; O2SAT 99; BMI 26.9
[2023-06-28] MEDS: LACTATED RINGERS 1,000 ML 150 ML IV CONT (08:27)
--- NOTE | 2023-06-28 09:01 | WPDANESEPPF ---
Anes - Initial Pre Proc Eval Procedure: Operation Date: 06/28/23 09:30 Proposed Procedures p Flexible Sigmoidoscopy - Manolo Ryan MD Date/Time: 06/28/23 09:01 Surgeon: Manolo Ryan MD Pre Op Diagnosis: colitis Patient Data Age: 78 Gender: F Height: 1.57 m Weight: 66.8 kg Last Vital Signs Temp 97.4 F L 06/28/23 08:24 Pulse 92 06/28/23 08:24 Resp 20 06/28/23 08:24 BP 149/71 H 06/28/23 08:24 Pulse Ox 99 06/28/23 08:24 O2 Del Method Room Air 06/28/23 08:24 Allergies Allergy/AdvReac Type Severity Reaction Status Date / Time No Known Allergies Allergy Verified 06/28/23 08:22 Home Medications Medication Instructions Recorded Confirmed Type multivitamin with iron 1 tablet PO DAILY 01/03/22 06/28/23 History mesalamine 0.375 gram See Rx Instructions .Route 08/08/22 06/28/23 Rx capsule,extended release 24 hr .COMPLEX #360 caps metoprolol tartrate 50 mg tablet 50 mg PO DAILY 11/28/22 06/25/23 History losartan 25 mg tablet 25 mg PO DAILY #90 tabs 04/26/23 06/28/23 Rx Patient hx anesthesia problems: none Family hx anesthesia problems: none Results Review: All pre-operative results and documents have been reviewed as part of the pre-operative evaluation. [facility] Past Medical History Medical History Chronic constipation Diverticula of intestine Esophageal ring Essential hypertension Hematochezia Hyperlipidemia SANTOS (iron deficiency anemia) SANTOS (iron deficiency anemia) OAB (overactive bladder) Osteoarthritis Osteopenia Ulcerative colitis Umbilical hernia Surgical History Surgical History H/O: hysterectomy (~1994) History of bladder surgery History of cholecystectomy (Unknown) Family History Family History Father Hypertension Family history of chronic obstructive pulmonary disease Mother Hypertension Family history of diabetes mellitus in first degree relative Sibling Hypertension Cerebrovascular accident COPD (chronic obstructive pulmonary disease) Heart disease Afib Social History Social History Social History: Ashley is and lives in [place], they have 3 children-6 grandchildren-3 great-grandchildren. 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 Caffeine- soda Smoking status: Never smoker Alcohol intake: never Substance use: never Substance use type: does not use Lack of Transportation: No Lack of Food: Never True Current Housing: I Have Housing Concerned About Future Housing: No Difficulty Paying Gas/Electric Bills: No Difficulty Paying for Meds: No Currently Unemployed: No Education: Bachelor's Degree Difficulty w/ Childcare or Family Care: No Living arrangements: with family Occupation/Education: retired Gender identity (if verbalized by the patient): Female Sexual Orientation (if Verbalized by the Patient): Straight or Heterosexual Spiritual care concerns: No Anes - Eval Final PreProcedure Day of Procedure 06/28/23 09:01 Patient weight: normal Heart: regular rate and rhythm Lungs: clear to auscultation Airway: Mallampati scale class II Neurological: alert and oriented Last oral intake: >/= 8 hours ASA classification: III Emergent: no Anesthetic plan: proceed Anesthesia type and monitoring: general GIVS and standard monitoring Results Review: All pre-operative results and documents have been reviewed as part of the pre-operative evaluation. Informed Consent: The patient's anesthetic plan and its attendant risks and benefits were discussed with the patient/family/POA. Questions were solicited and answers provided to the satisfaction of the patient/family/POA.
--- NOTE | 2023-06-28 09:04 | PM.HPGS ---
History of Present Illness History of Present Illness Consent: Risks, benefits, and alternatives have been discussed and questions answered. Patient agrees to proceed with procedure. Chief complaint: colitis Narrative: Ashley Strong is a 78 year old female here for sigmoidoscopy, she had colonoscopy 05/2022 after presented with rectal bleeding, abdominal pain and SANTOS (affecting left side, sparing most of right colon but also involving cecum) started on mesalamine. Repeat labs normal no more anemia, also normal liver enzymes, esr and crp but elevated calprotectin >500. Still some symptoms, insurance denied entyvio. She has a son with Crohn's and daughter with UC. Review of Systems Constitutional: Constitutional: Denies headache(s) and Denies weakness Eyes: Eyes: Denies blurry vision ENT: Reports Normal hearing present, Denies headache(s) and Denies neck pain Cardiovascular: Cardiovascular: Denies chest pain and Denies dyspnea Respiratory: Respiratory: Denies dyspnea Gastrointestinal: Gastrointestinal: Reports no additional gastrointestinal complaints Genitourinary: Genitourinary: Denies dysuria Musculoskeletal: Musculoskeletal: Denies neck pain Integumentary/Breasts: Skin/Breast: Denies dry skin Neurologic: Reports Normal hearing present, Denies headache(s) and Denies weakness Psychiatric: Psychiatric: Denies anxiety Endocrine: Endocrine: Denies change in body appearance Hematologic/Lymphatic: Hematologic/Lymphatic: Denies easy bleeding Allergic/Immunologic: Allergic/Immunologic: Denies urticaria [facility] Past Medical History Medical History Chronic constipation Diverticula of intestine Esophageal ring Essential hypertension Hematochezia Hyperlipidemia SANTOS (iron deficiency anemia) SANTOS (iron deficiency anemia) OAB (overactive bladder) Osteoarthritis Osteopenia Ulcerative colitis Umbilical hernia Surgical History Surgical History H/O: hysterectomy (~1994) History of bladder surgery History of cholecystectomy (Unknown) Family History Family History Father Hypertension Family history of chronic obstructive pulmonary disease Mother Hypertension Family history of diabetes mellitus in first degree relative Sibling Hypertension Cerebrovascular accident COPD (chronic obstructive pulmonary disease) Heart disease Afib Social History Social History Social History: Ashley is and lives in [place], they have 3 children-6 grandchildren-3 great-grandchildren. 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 Caffeine- soda Smoking status: Never smoker Alcohol intake: never Substance use: never Substance use type: does not use Lack of Transportation: No Lack of Food: Never True Current Housing: I Have Housing Concerned About Future Housing: No Difficulty Paying Gas/Electric Bills: No Difficulty Paying for Meds: No Currently Unemployed: No Education: Bachelor's Degree Difficulty w/ Childcare or Family Care: No Living arrangements: with family Occupation/Education: retired Gender identity (if verbalized by the patient): Female Sexual Orientation (if Verbalized by the Patient): Straight or Heterosexual Spiritual care concerns: No Meds Home Medications and Allergies Home Medications Medication Instructions Recorded Confirmed Type multivitamin with iron 1 tablet PO DAILY 01/03/22 06/28/23 History mesalamine 0.375 gram See Rx Instructions .Route 08/08/22 06/28/23 Rx capsule,extended release 24 hr .COMPLEX #360 caps metoprolol tartrate 50 mg tablet 50 mg PO DAILY 11/28/22 06/25/23 History losartan 25 mg tablet 25 mg PO DAILY #90 tabs 04/26/23 06/28/23 Rx Allergies Allergy/AdvReac Type Severity Reaction Status
[2023-06-28 09:20] VITALS: BP 105/59; PULSE 80; RESP 23; O2SAT 100
[2023-06-28 09:30] VITALS: BP 119/61; PULSE 78; RESP 23; O2SAT 100
[2023-06-28 09:40] VITALS: BP 133/69; PULSE 74; RESP 20; O2SAT 100
== END 2023-06-28 09:49 | disposition home or self-care (01) ==
PROVIDERS: PCP Family Medicine; Visit Provider Internal Medicine Gastroenterology
PROC: 0DJD8ZZ Inspection of Lower Intestinal Tract, Via Natural or Artificial Opening Endoscopic (ICD-10-PCS; CPT 45330; principal; 2023-06-28 09:30)
DX: K51.90 Ulcerative colitis, unspecified, without complications (principal); I10 Essential (primary) hypertension; E78.5 Hyperlipidemia, unspecified; K59.09 Other constipation; D50.9 Iron deficiency anemia, unspecified; N32.81 Overactive bladder; Z82.49 Family history of ischemic heart disease and other diseases of the circulatory system
CPT/HCPCS: 45380; 88305; J2704; J7120

== ENCOUNTER 2024-02-19 07:14 | Outpatient (CLI) | payer MEDICARE, SELFPAY ==
[2024-02-19 08:01] LABS: Hematocrit 35.6 % (37.0-47.0); Hemoglobin 12.3 g/dL (12.0-15.0); Mean Corpuscular HGB Conc 34.6 g/dl (32-36); Mean Corpuscular Hemoglobin 34.7 pg (26-34); Mean Corpuscular Volume 100.6 fl (80-100); Mean Platelet Volume 8.6 fl (7.4-10.4); Platelet Count Result 293 k/mm3 (150-375); Red Blood Count 3.54 M/mm3 (4.2-5.4); Red Cell Distribution Width 13.4 % (11.5-14.5); White Blood Count 4.4 K/mm3 (4.5-10.0)
[2024-02-19 08:12] LABS: Cholesterol 224 mg/dL (0-200); HDL Direct 45 mg/dL; Triglycerides 285 mg/dL (<150)
[2024-02-19 08:17] LABS: Alanine Aminotransferase 32 U/L (6-35); Albumin Level 4.1 g/dL (3.5-5.1); Alkaline Phosphatase 95 U/L (38-126); Anion Gap 5 mmol/L (4-12); Aspartate Amino Transferase 41 U/L (14-36); Bilirubin,Total 0.8 mg/dL (0.2-1.3); Blood Urea Nitrogen 23 mg/dL (7-17); CRP < 0.5 mg/dL (<1.0); Carbon Dioxide 31 mmol/L (22-30); Chloride 102 mmol/L (98-107); Estimated Glomerular Filt Rate > 60; Glucose 87 mg/dL (65-110); Potassium 4.1 mmol/L (3.4-5.0); Sodium 138 mmol/L (137-145)
[2024-02-19 08:24] LABS: LDL Cholesterol Direct 111 mg/dL
[2024-02-19 08:34] LABS: Erythrocyte Sedimentation Rate 31 mm/hr (0-20)
== END 2024-02-19 07:15 | disposition home or self-care (01) ==
LOC: ANHLAB 07:19
PROVIDERS: PCP Family Medicine; Referring Provider Internal Medicine Gastroenterology; Visit Provider Nurse Practitioner
DX: K51.90 Ulcerative colitis, unspecified, without complications (principal); D64.9 Anemia, unspecified; I10 Essential (primary) hypertension
CPT/HCPCS: 36415; 80053; 80061; 85027; 85652; 86140

== ENCOUNTER 2024-02-22 07:32 | Outpatient (CLI) | payer MEDICARE, SELFPAY ==
[2024-03-01 21:53] LABS: Calprotectin, Stool 55 mcg/g
== END 2024-02-22 07:33 | disposition home or self-care (01) ==
LOC: ANHLAB 07:34
PROVIDERS: PCP Family Medicine; Visit Provider Internal Medicine Gastroenterology
DX: K51.90 Ulcerative colitis, unspecified, without complications (principal); D64.9 Anemia, unspecified
CPT/HCPCS: 83993

== ENCOUNTER 2024-06-19 15:20 | Outpatient (CLI) | payer MEDICARE, SELFPAY ==
--- NOTE | ~2024-06-19 | CT_ITS ---
CT Scan of the Chest without Contrast: Clinical Indication: Pulmonary nodule Technique: Contiguous sections were acquired throughout the chest without intravenous contrast. Dose reduction technique was used on this scan by utilizing automated exposure control and iterative recon struction technique. The dose-length product (DLP) was 90.32 mGy-cm. COMPARISON: 12/12/2022 Findings: There is no evidence of any significant mediastinal, hilar or axillary lymphadenopathy. The mediastin al soft tissues appear normal. There is no evidence of pleural or pericardial effusion. Stable 3 mm right apical pulmonary nodule. Stable 9 mm probable calcified granuloma at the lingula. Images through the upper abdomen reveal [id number] hiatal hernia. Impression: Stable pulmonary nodules, as above. [id number] hiatal hernia. Reviewed, dictated and finalized at [facility]. 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 [id number] hiatal hernia.
== END 2024-06-19 15:21 | disposition home or self-care (01) ==
PROVIDERS: PCP Family Medicine; Visit Provider Physician Assistant
DX: R91.8 Other nonspecific abnormal finding of lung field (principal); K44.9 Diaphragmatic hernia without obstruction or gangrene
CPT/HCPCS: 71250

== ENCOUNTER 2024-06-24 10:31 | Outpatient (CLI) | payer MEDICARE, SELFPAY ==
--- NOTE | ~2024-06-24 | MM_ITS ---
EXAMINATION: MM screening juliana BI w juliana HISTORY: Screening TECHNIQUE: Craniocaudal and mediolateral oblique 3-D tomosynthesis images were obtained and synthetic 2-D images were generated. CAD analysis was submitted and interpreted. COMPARISON: Comparison to multiple prior studies sequentially, with oldest reviewed study dated 10/2021. BREAST PARENCHYMAL COMPOSITION: Not dense: There are scattered areas of fibroglandular density. FINDINGS: There is no evidence of suspicious mass, calcification, or architectural distortion to sugg est malignancy in either breast. There has been no suspicious interval change. IMPRESSION: 1. No mammographic evidence of malignancy. 2. Recommend routine screening mammography in one year. BI-RADS Category 1: Negative Reviewed, dictated and finalized at location B. 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
--- OUTSIDE RECORDS SUMMARY | 2024-07-01 05:49 | XMS_ITS | Encounter Summary ---
Author Organization [facility] Address [address] [place] [address] Care Team Providers Care Plastics Fabricator And Assembler Name Role Phone Sundeep Green MD Primary Care Provider [phone] Encounter Details Date Type Department Care Team (Late st Contact Info) Description 09/10/2020 Orders Only [facility] - COVID Vax [address] [place] [address] Leonardo Espinoza MD [address] [facility] [address] [place] [address] Need for vaccination Social History Tobacco Use Types Packs/Day Years Used Date Smoking Tobacco: Never Smokeless Tobacco: Never Sex and Gender Information Value Date Recorded Sex Assigned at Not on file Gender Identity Not on file Sexual Orientation Not on file documented as of this encounter Plan of Treatment Not on file documented as of this encounter Visit Diagnoses Diagnosis Need for vaccination Need for prophylactic vaccination and inoculation against unspecified single disease documented in this encounter Care Teams Plastics Fabricator And Assembler Relationship Specialty Start Date End Date Sundeep Green MD [address] [place] [address] PCP - General 02/25/10 06/12/22 documented as of this encounter
--- OUTSIDE RECORDS SUMMARY | 2024-07-01 05:49 | XMS_ITS | Patient Health Summary ---
Author Organization [facility] Address [address] [place] [address] Care Team Providers Care Cash Register Mechanic Name Role Phone Marquita Yu MD Primary Care Provider Note from [facility],non-owned Affiliates and Associated Physician Practices is amultiple site organization consisting of ambulatory clinics and hospital sitesin [place], [place], [place] and [place]. This disclosure is being madepursuant to the Care Everywhere program and may not contain all information available regarding this patient. Last updated 18.[facility] Allergies No known active allergies Medications * Be aware that medications may not be up to date on this document. Alwaysverify current medications with the patient. * Naproxen Sodium (ALEVE PO) Social History Tobacco Use Types Packs/Day Years Used Date Smoking Tobacco: Never Smokeless Tobacco: Never Sex and Gender Information Value Date Recorded Sex Assigned at Not on file Gender Identity Not on file Sexual Orientation Not on file Last Filed Vital Signs Vital Sign Reading Time Taken Comments Blood Pressure 166/78 09/21/2018 11:37 AM CDT Pulse 101 09/21/2018 11:30 AM CDT Temperature 37.7 ??C (99.9 ??F) 09/21/2018 11:30 AM C DT Respiratory Rate 16 09/21/2018 11:30 AM CDT Oxygen Saturation 97% 09/21/2018 11:30 AM CDT Inhaled Oxygen Concentration - - Weight 71.2 kg (157 lb) 09/21/2018 11:30 AM CDT Height 160 cm (5' 3 ) 09/21/2018 11:30 AM CDT Body Mass Index 27.81 09/21/2018 11:30 AM CDT Procedures * INFLUENZA A+B - POINT OF CARE (AMB)(Performed 09/21/2018) Performed for Influenza A * CULTURE URINE(Performed 03/26/2014) Results * (ABNORMAL) INFLUENZA A+B - POINT OF CARE (AMB) (09/21/2018 11:33 AM CDT) Influenza A Antigen Rapid Positive(A) Negative Influenza B Antigen Rapid Negative Negative Influenza Internal Control positive NEGATIVE - POSITIVE Influenza Lot Number [id number] Influenza Expiration Date 05 06 2020 Other NASOPHARYNGEAL SWAB / Unknown 09/21/2018 11:33 AM CDT Maria Elena Gupta APRN-ENROLLMENT COORDINATOR LAB - POINT OF CA RE ORDERABLES * (ABNORMAL) CULTURE URINE (03/26/2014 9:55 PM CDT) Culture Urine ESCHERICHIA COLI(A) [facility] Comment:1,000,000 CFU/ML Esc herichia Coli Urine specimen (specimen) URINE SPECIMEN OBTAINED BY CLEAN CATCH PROCEDURE / Unknown 03/26/2014 9:55 PM CDT 03/27/2014 10:45 AM CDT Narrative [facility] - 03/29/2014 8:57 AM CDT Rohini#[id number] Osman Loc/Rm/Bed: ED// CLN CATCH U @03/26/14 2236: URINE CULTURE added. RFLXG = [facility]. Organism Antibiotic Method Susceptibility Escherichia coli Amikacin SUSCEPTIBILITY <=2: Sensitive Escherichia coli Ampicillin SUSCEPTIBILITY >=32: Resistant Escherichia coli Ampicillin-sulbactam SUSCEPTIBILITY 16: Intermediate Escherichia coli Cefazolin SUSCEPTIBILITY <=4: Sensitive Escherichia coli Cefepime SUSCEPTIBILITY <=1: Sensitive Escherichia coli Ceftazidime SUSCEPTIBILITY <=1: Sensitive Escherichia coli Ceftriaxone SUSCEPTIBILITY <=1: Sensitive Escherichia coli Gentamicin SUSCEPTIBILITY >=16: Resistant Escherichia coli Imipenem SUSCEPTIBILITY <=0.25: Sensitive Escherichia coli Levofloxacin SUSCEPTIBILITY 1: Sensitive Escherichia coli Nitrofurantoin SUSCEPTIBILITY <=16: Sensitive Escherichia coli Piperacillin-tazobactam SUSCEPTIBILIT Y <=4: Sensitive Escherichia coli Tobramycin SUSCEPTIBILITY 8: Intermediate Escherichia coli Trimethoprim-sulfamethoxazole SUSCEPT IBILITY <=20: Sensitive Escherichia coli Extended-Spectrum Beta-Lactamase SUSC EPTIBILITY Neg: - Historical Provider LAB - MICROBIOLOG Y ORDERABLES [address] [phone] Care Teams Cash Register Mechanic Relationship Specialty Start Date End Date Marquita Yu MD [address] [place] [phone] PCP - General 06/13/22
--- OUTSIDE RECORDS SUMMARY | 2024-07-01 05:49 | XMS_ITS | Encounter Summary ---
Author Organization [facility] Address [address] [place] [address] Care Team Providers Care Trimmer Loader Name Role Phone Marquita Yu MD Primary Care Provider Reason for Visit * Reason Comments Follow-up 6 mo f/u Palpitations Premature atrial contractions Encounter Details Date Type Department Care Team (Late st Contact Info) Description 05/08/2023 8:30 AM TANGLED YARN SPOOL STRAIGHTENER Office Visit [facility] Medical [facility] Cardiology [address] [place] [address] Jose Stanton MD [address] [place] [address] Essential (primary) hypertension (Primary Dx); PAT (paroxysmal atrial tachycardia); Premature atrial contractions; Pulmonary HTN (HCC) Social History Tobacco Use Types Packs/Day Years Used Date Smoking Tobacco: Never Smokeless Tobacco: Never Comments No Sex and Gender Information Value Date Recorded Sex Assigned at Not on file Legal Sex Female 1:59 PM TANGLED YARN SPOOL STRAIGHTENER Gender Identity Not on file Sexual Orientation Not on file documented as of this encounter Last Filed Vital Signs Vital Sign Reading Time Taken Comments Blood Pressure 128/64 05/08/2023 8:32 AM TANGLED YARN SPOOL STRAIGHTENER Pulse 78 05/08/2023 8:32 AM TANGLED YARN SPOOL STRAIGHTENER Temperature - - Respiratory Rate - - Oxygen Saturation 96% 05/08/2023 8:32 AM TANGLED YARN SPOOL STRAIGHTENER Inhaled Oxygen Concentration - - Weight 69.9 kg (154 lb) 05/08/2023 8:32 AM TANGLED YARN SPOOL STRAIGHTENER Height 157.5 cm (5' 2 ) 05/08/2023 8:32 AM TANGLED YARN SPOOL STRAIGHTENER Body Mass Index 28.17 05/08/2023 8:32 AM TANGLED YARN SPOOL STRAIGHTENER documented in this encounter Progress Notes * Jose Stanton MD - 05/08/2023 8:30 AM CST Images from the original note were not included. DATE OF VISIT: 05/08/2023 CHIEF COMPLAINT Chief Complaint Patient presents with Follow-up 6 mo f/u Palpitations Premature atrial contractions ASSESSMENT Diagnoses and all orders for this visit: Essential (primary) hypertension (Primary) PAT (paroxysmal atrial tachycardia) Premature atrial contractions Pulmonary HTN (HCC) PLAN/RECOMMENDATIONS H/o possible isolated atrial fibrillation documented on Apple watch tracings personally reviewed but no other subsequent recurrence or clear documentation. CHADS2 Vasc score 4 in which systemic anticoagulation would be warranted. -30 day ginseng farmer 07/2022 no AFib, brief PAT, but frequent PAC burden 16%. Tolerating ToprolXL 25mg daily thus far. -11/2022 48 H Holter 6% PAC burden, improved yet frequent subsequently Toprol XL 50mg daily advised,tolerating well. No other Apple Watch alerts for AF or tachycardia. May continue present regimen for now unless new sxs or concerns. She agrees. BP marginally controlled, goal <140/90 mm Hg. Monitor BP on routine basis. Call with readings. Continue consistent cardiovascular exercise, weight loss, medication compliance, and low-sodium diet. -continue Losartan 25 mg daily and Toprol XL 50mg daily. Lifestyle modification counseling performed. Encourage consistent exercise, reduction in caloric intake. Lipids personally reviewed 10/31/22 LDL 125, not ideally controlled with goal LDL<100. Continue lifestyle modification. Continue routine lipid monitoring. No indication for statin therapy at this time. She says she will not consider statins even if recommended in the future. She is having al ot of GI issues and recently dx with ulcerative colitis starting new therapy. Will monitor. Continue management for ulcerative colitis. She remains on mesalamine soon to start Entyvio. No clear CV contraindications or particularly concerns. Over 50% of this visit counseling abnormal EKG, HTN, lipids, medications, lifestyle modification. Follow up in the office in 6-9 months or sooner as needed. Thank you for allowing me the privilege of participating in the care this very pleasant patient. Please do not hesitate to contact me with any additional questions or concerns. NEGRITA Strong is a 78 y.o. female with a PMHx of lung nodule, PAT, PAC's, Ulcerative colitis, HTNseen in very kind referral by Eda Graves NP for my opinion regarding abnormal ECG. 08/29/21 Initial visit: She reports she feels well and has no specific complaints. No limiting dyspnea, no CP, no palpitations, near syncope or syncope. No edema. Had TM stress test, Echo due to her EKG. Had COVID in April, had vaccine, milder sxs lingering cough has persisted and PCP concerned related to her heart prompting further evaluation CXR and CT chest due to 1.2cm lingular pulm nodule. Lifetime nonsmoker, noETOH, no prior CAD, LA, CHF, DVT/PE or edema. Up and down stairs doing laundry no issues no limitations. Patient states during her treadmill EKG stress test she was stopped early included on much longer. She had hypertensive BP response which may have been the reason but no chest pain or abnormal EKG changes. Echo revealed preserved LV function mild LVH no wall motion abnormalities mild pulmonaryhypertension RVSP 43 mm Hg no significant valve pathology. Patient states she feels well and has noconcerns. She denies declining activity tolerance orthopnea or PND. She denies snoring poor sleep ot her than waking to urinate periodically. No history of SAMREEN as she is aware. 06/28/22 She notes a few episodes of palps and her Apple Watch has indicated on a few occ she had AFib. Personal review of Navita rhythma data on her phone indicated 5 AF recordings all were clearly SRwith frequent PAC's and once tracing 04/26/22 0716 cannot exclude AF with some artifact. She is worried as her sister recently had a CVA and has AF and has other family members with AFib. She mentionsher chronic colitis history and she is not bleeding near as much on her current regimen, more energy feeling better in general. 10/31/22 Feeling well. No new complaints. Denies chest pain, exertional dyspnea, palpitations, dizziness, near syncope and/or syncope. No edema. Tolerating medications well without difficulty. Mazin Toprol XL 25mg daily. She did not start ASA. No CP dizziness, SOB or palps. Apple Watch has notalerted her to recurrent arrhythmias. 05/08/23 Feeling fine, denies SOB, CP or palps, no dizziness. No falls. Recently dx with ulcerativecolitis, has hernia otherwise ok. Going to start [employer] MEDICAL HISTORY Past Medical History: Diagnosis Date Hyperlipidemia Hypertension No pertinent past medical history SOCIAL HISTORY reports that she has never smoked. She has never used smokeless tobacco. FAMILY HISTORY family history includes Atrial fibrillation in her brother, mother's sister, sister, and sister; Heart disease in her father and mother; Heart failure in her mother; Hypertension in her father and mother; Stroke in her sister. MEDICATIONS HOME MEDICATIONS : losartan (COZAAR) 25 mg tablet mesalamine (APRISO) 0.375 gram 24 hr capsule metoprolol XL (TOPROL-XL) 50 mg extended release tablet multivitamin,tx-minerals capsule aspirin (Adult Low Dose Aspirin) 81 mg enteric coated tablet calcium carbonate-vitamin D3 1,500 mg (600mg elemental) -800 unit per tablet oxybutynin XL (DITROPAN-XL) 5 mg 24 hr tablet ALLERGIES No Known Allergies REVIEW OF SYSTEMS Review of Systems Constitutional: Negative for decreased appetite, diaphoresis, fever, malaise/fatigue and night sweats. HENT: Negative for hearing loss and nosebleeds. Eyes: Negative for blurred vision and pain. Cardiovascular: Negative for chest pain, claudication, dyspnea on exertion, irregular heartbeat, leg swelling, near-syncope, orthopnea, palpitations and syncope. Respiratory: Negative for cough, hemoptysis, shortness of breath, snoring and wheezing. Endocrine: Negative for cold intolerance and heat intolerance. Hematologic/Lymphatic: Negative for bleeding problem. Does not bruise/bleed easily. Skin: Negative for color change, itching, rash and suspicious lesions. Musculoskeletal: Positive for joint pain. Negative for falls, muscle weakness and myalgias. Gastrointestinal: Negative for abdominal pain, heartburn, hematemesis, melena and nausea. Genitourinary: Negative for dysuria, hematuria and nocturia. Neurological: Negative for excessive daytime sleepiness, dizziness, focal weakness, headaches, light-headedness, loss of balance and weakness. Psychiatric/Behavioral: Negative for altered mental status, depression and memory loss. The patientis not nervous/anxious. Allergic/Immunologic: Negative for environmental allergies. All other systems reviewed and are negative. PHYSICAL EXAM Vitals BP 128/64 (BP Location: Left arm, Patient Position: Sitting) Pulse 78 Ht 157.5 cm (5' 2 ) Wt 69.9 kg (154 lb) SpO2 96% BMI 28.17 kg/m?? Weight: 69.9 kg (154 lb) Height: 157.5 cm (5' 2 ) Body mass index is 28.17 kg/m??. Physical Exam Vitals reviewed. Constitutional: General: She is not in acute distress. Appearance: Normal appearance. She is well-developed. She is not diaphoretic. HENT: Head: Normocephalic and atraumatic. Right Ear: External ear normal. Left Ear: External ear normal. Nose: Nose normal. Mouth/Throat: Mouth: Mucous membranes are moist. Dentition: Normal dentition. Eyes: General: Lids are normal. No scleral icterus. Extraocular Movements: Extraocular movements intact. Conjunctiva/sclera: Conjunctivae normal. Neck: Thyroid: No thyromegaly. Vascular: Normal carotid pulses. No carotid bruit, hepatojugular reflux or JVD. Trachea: No tracheal deviation. Cardiovascular: Rate and Rhythm: Normal rate and regular rhythm. Pulses: Normal pulses and intact distal pulses. No decreased pulses. Heart sounds: Normal heart sounds, S1 normal and S2 normal. Heart sounds not distant. No murmur heard. No friction rub. No gallop. No S3 or S4 sounds. Pulmonary: Effort: Pulmonary effort is normal. No respiratory distress. Breath sounds: Normal breath sounds. No wheezing or rales. Chest: Chest wall: No tenderness. Abdominal: General: Bowel sounds are normal. There is no distension. Palpations: Abdomen is soft. There is no mass. Tenderness: There is no abdominal tenderness. There is no guarding or rebound. Musculoskeletal: General: No tenderness or deformity. Normal range of motion. Cervical back: Normal range of motion and neck supple. Right lower leg: No edema. Left lower leg: No edema. Lymphadenopathy: Cervical: No cervical adenopathy. Skin: General: Skin is warm and dry. Coloration: Skin is not pale. Findings: No ecchymosis, erythema, petechiae or rash. Nails: There is no clubbing. Neurological: General: No focal deficit present. Mental Status: She is alert and oriented to person, place, and time. Mental status is at baseline. Cranial Nerves: No cranial nerve deficit. Motor: No abnormal muscle tone. Coordination: Coordination normal. Psychiatric: Mood and Affect: Mood normal. Speech: Speech normal. Behavior: Behavior normal. Behavior is cooperative. Thought Content: Thought content normal. Judgment: Judgment normal. LABS AND OTHER DIAGNOSTIC TESTS Results for orders placed or performed in visit on 10/31/22 POCT lipid panel Result Value Ref Range Cholesterol, POC 207 mg/dL HDL, POC 46 mg/dL Triglycerides, POC 179 mg/dL LDL, Direct, POC 125 mg/dL Chol/HDL Ratio, POC 2.7 Non-HDL Cholesterol, POC 161 mg/dL Cholesterol Total, POC 207 mg/dL 08/03/22 AMBULATORY LAY OUT CARPENTER REPORT Type of monitor : 30 day monitor Date of the study/Enrollment period: 07/03/2022 Indication: Palpitations Quality of the study: Good Interpretation: The patient was monitored for 30 days. The underlying rhythm was sinus with an average heart rate of 82 beats per minute (range 50-136 BPM). Infrequent PVCs occurred with a 1% burden. Frequent APCs occurred with a 16% burden. There also atrial couplets and brief runs of atrial tachycardia of CO for beats. There was no atrial fibrillation, SVT, pauses, heart block or ventricular tachycardia. The patient did not submit any rhythm strips for symptoms. Conclusions: Frequent APCs as above, 16% burden No atrial fibrillation No symptoms recorded I have personally reviewed and analyzed EKG, electronic medical record, and bloodwork/lipids. See above for echocardiogram, treadmill EKG stress test results. -08/16/2021 treadmill EKG stress test total 3 minutes 106% age predicted maximum heart rate frequent PACs no ischemia hypertensive BP response. -Echocardiogram pre 120 to EF 65-70% mild LVH global strain normal at-19% mild TR RVSP 43 mm Hg mild LAD, no aortic stenosis trivial Leonel Stanton MD, [facility] This note is dictated and transcribed using Soundwave Direct Software. Continuous Improvement Coordinator variancesmay occur. Despite proofreading, typographical errors may occur. LED YARN SPOOL STRAIGHTENER documented in this encounter Plan of Treatment Not on file documented as of this encounter Visit Diagnoses Diagnosis Essential (primary) hypertension- Primary Unspecified essential hypertension PAT (paroxysmal atrial tachycardia) (HCC) Paroxysmal supraventricular tachycardia Premature atrial contractions Supraventricular premature beats Pulmonary HTN (HCC) documented in this encounter Discontinued Medications Medication Sig Discontinue Reason Start Date End Da te aspirin (Adult Low Dose Aspirin) 81 mg enteric coated tablet Take 1 tablet (81 mg total) by mouth daily Therapy completed 06/28/2022 05/08/2023 calcium carbonate-vitamin D3 1,500 mg (600mg elemental) -800 unit per tablet Take 1 tablet by mouth daily Therapy completed 05/08/2023 oxybutynin XL (DITROPAN-XL) 5 mg 24 hr tablet Take 1 tablet (5 mg total) by mouth daily Therapy completed 03/27/2022 05/08/2023 documented as of this encounter Care Teams Trimmer Loader Relationship Specialty Start Date End Date Marquita Yu MD [address] [facility] [place] [address] [place] [address] PCP - General Family Practice 05/08/23 documented as of this encounter
--- OUTSIDE RECORDS SUMMARY | 2024-07-01 05:49 | XMS_ITS | Clinical Summary ---
Author Organization [facility] Address [address] [place] [address] Care Team Providers Care Solar Sales Rep Name Role Phone Marquita Yu MD Primary Care Provider Source Comments [facility],non-owned Affiliates and Associated Physician Practices is amultiple site organization consisting of ambulatory clinics and hospital sitesin [place], [place], [place] and [place]. This disclosure is being madepursuant to the Care Everywhere program and may not contain all information available regarding this patient. Last updated 18.[employer] [facility] Allergies No known active allergies Medications * Be aware that medications may not be up to date on this document. Alwaysverify current medications with the patient. Medication Sig Dispensed Refills Start Date End Date Status Naproxen Sodium (ALEVE PO) Active Family History Medical History Relation Name Comments CAD (Coronary Artery Disease) Brother Other - Cardiac Father [place] Other - Cardiac Mother CHF Cancer - Breast Sister Relation Name Status Comments Brother Father Mother Sister Social History Tobacco Use Types Packs/Day Years [...] Mass Index 27.81 09/21/2018 11:30 AM CDT Plan of Treatment Health Maintenance Due Date Last Done Comments BONE DENSITY TESTING 1945 DTAP/TDAP/TD VACCINES (1 - Tdap) 1964 PNEUMOCOCCAL VACCINE 50+ (1 of 1 - PCV) 1995 ZOSTER VACCINE (1 of 2) 1995 Respiratory Syncytial Virus (RSV) Vaccine Pt: or over 60 yrs (1 - 1-dose 75+ series) 2020 COVID-19 VACCINE ( - 2023-2 5 season) 2024 INFLUENZA VACCINE (#1) 2024 DEPRESSION SCREENING 06/18/2024 HEPATITIS B VACCINE Aged Out No longe r eligible based on patient's age to complete this topic HIB VACCINE Aged Out No longer eligi ble based on patient's age to complete this topic HPV VACCINE Aged Out No longer eligi ble based on patient's age to complete this topic MENINGOCOCCAL (Group B) VACCINE Aged Out No longer eligible based on patient's age to complete this topic MENINGOCOCCAL VACCINE Aged Out No osmin tung eligible based on patient's age to complete this topic Care Teams Solar Sales Rep Relationship Specialty Start Date End Date Marquita Yu MD [address] [facility] [place] [phone] PCP - General 06/13/22
--- OUTSIDE RECORDS SUMMARY | 2024-07-01 05:49 | XMS_ITS | Clinical Summary ---
Author Organization [facility] [address] [facility] Address [address] [place] [address] Care Team Providers Care Sponsorship Coordinator Name Role Phone Marquita Yu MD Primary Care Provider Allergies No known active allergies Medications losartan (COZAAR) 25 mg tablet 08/28/2021 Active multivitamin,tx- minerals capsule Take by mouth Take 1 tablet by mouth every three days Active metoprolol XL (TOPROL-XL) 50 mg extended release tablet TAKE 1 TABLET BY MOUTH EVERY DAY 90 tablet 3 11/16/2023 Active upadacitinib (Rinvoq) 45 mg tablet extended release 24 hr Take 1 tablet (45 mg total) by mouth daily Active Active Problems Problem Noted Date Diagnosed Date PAT (paroxysmal atrial tachycardia) 10/31/2022 Palpitations 06/28/2022 Premature atrial contractions 06/28/2022 Abnormal EKG 08/29/2021 Essential (primary) hypertension 08/29/2021 Pulmonary HTN 08/29/2021 History of 2019 novel coronavirus disease (COVID -19) 08/29/2021 Pulmonary nodule 08/29/2021 Chronic cough 08/29/2021 COVID 05/02/2021 Surgical History Surgery Date Site/Laterality Comments HYSTERECTOMY CHOLECYSTECTOMY TONSILLECTOMY AND ADENOIDECTOMY Medical History Medical History Date Comments No pertinent past medical history Hypertension Hyperlipidemia Family History Medical History Relation Name Comments Atrial fibrillation Brother Heart disease Father Hypertension Father Heart disease Mother Heart failure Mother Hypertension Mother Atrial fibrillation Mother's Sister Atrial fibrillation Sister 1 Stroke Sister 1 Atrial fibrillation Sister 2 Relation Name Status Comments Brother Alive Father Mother Mother's Sister Other Sister 1 Alive Sister 2 Alive Social History Tobacco Use Types Packs/Day Years Used Date Smoking Tobacco: Never Smokeless Tobacco: Never Tobacco Cessation:Counseling Given: Not Answered Personal Safety Answer Date Recorded Getting School Help Needed Not on file 08/12 Comments No Sex and Gender Information Value Date Recorded Sex Assigned at Not on file Legal Sex Female 1:59 PM HEALTH INFORMATION ASSISTANT Gender Identity Not on file Sexual Orientation Not on file Obstetrics History Last Filed Vital Signs Vital Sign Reading Time Taken Comments Blood Pressure 130/60 11/16/2023 2:20 PM CDT Pulse 59 11/16/2023 2:20 PM CDT Temperature 37.2 ??C (99 ??F) 04/28/2021 2:45 PM HEALTH INFORMATION ASSISTANT Respiratory Rate 16 08/29/2021 11:04 AM CDT Oxygen Saturation 99% 11/16/2023 2:20 PM CDT Inhaled Oxygen Concentration - - Weight 67.6 kg (149 lb) 11/16/2023 2:20 PM CDT Height 157.5 cm (5' 2 ) 11/16/2023 2:20 PM CDT Body Mass Index 27.25 11/16/2023 2:20 PM CDT Plan of Treatment Health Maintenance Due Date Last Done Comments Depression Screening 1945 Fall Risk Assessment 1945 Hepatitis C Screening 1945 Osteoporosis Screening-Bone Density Scan 1945 DTaP/Tdap/Td Vaccine (1 - Tdap) 1956 Hepatitis B Screening 1963 Zoster Vaccine (1 of 2) 1995 Pneumococcal vaccine 65+ (1 of 1 - PCV) 2010 Well Visit 65+ 2010 Covid-19 Vaccine (3 - 2023-2 5 season) 2024 08/31/2020, 08/10/2020 Influenza Vaccine (#1) 2024 , 05/26/2019, 04/23/2018, Additional history exists Insurance [employer] CHOICE MEDICARE PPO [employer] CHOICE MEDICARE PPO Care Teams Sponsorship Coordinator Relationship Specialty Start Date End Date Marquita Yu MD [address] [facility] [place] [address] [place] [address] PCP - General Family Practice 05/08/23
--- OUTSIDE RECORDS SUMMARY | 2024-07-01 05:49 | XMS_ITS | Encounter Summary ---
Author Organization [facility] Address [address] [place] [address] Care Team Providers Care Glass Frame Fitter Name Role Phone Sundeep Green MD Primary Care Provider [phone] Reason for Visit * Reason Onset Date Comments Follow-up 09/23/2018 Encounter Details Date Type Department Care Team (Late st Contact Info) Description 09/23/2018 Telephone [facility] [employer] [facility] AT [address] [address] Provider, [facility] Follow-up Social History Tobacco Use Types Packs/Day Years Used Date Smoking Tobacco: Never Smokeless Tobacco: Never Sex and Gender Information Value Date Recorded Sex Assigned at Not on file Gender Identity Not on file Sexual Orientation Not on file documented as of this encounter Plan of Treatment Not on file documented as of this encounter Visit Diagnoses Not on filedocumented in this encounter Care Teams Glass Frame Fitter Relationship Specialty Start Date End Date Sundeep Green MD [address] [place] [id number] PCP - General 02/25/10 06/12/22 documented as of this encounter
--- OUTSIDE RECORDS SUMMARY | 2024-07-01 05:49 | XMS_ITS | Encounter Summary ---
Author Organization [facility] Address [address] [facility] [place] [address] Care Team Providers Care Android Programmer Name Role Phone Sundeep Green MD Primary Care Provider [phone] Reason for Visit * Reason Comments Fever Cough Encounter Details Date Type Department Care Team (Late st Contact Info) Description 09/21/2018 11:20 AM CDT Office Visit [facility] AT [address] [id number] Provider, [facility] [place] Influenza A (Primary Dx); Elevated blood pressure reading without diagnosis of hypertension Social History Tobacco Use Types Packs/Day Years [...] Mass Index 27.81 09/21/2018 11:30 AM CDT documented in this encounter Patient Instructions * Patient Instructions* Maria Elena GuptaGARRETT-MEDICINAL PLANT PICKER - 09/21/2018 11:38 AM CDT Images from the original note were not included. Influenza MANAGER OF COMPENSATION: Influenza (the flu) is an infection caused by the influenza virus. The flu is easily spread when aninfected person coughs, sneezes, or has close contact with others. You may be able to spread the flu to others for 1 week or longer after signs or symptoms appear. Common signs and symptoms include the following: ?? Fever and chills ?? Headaches, body aches, and muscle or joint pain ?? Cough, runny nose, and sore throat ?? Loss of appetite, nausea, vomiting, or diarrhea ?? Tiredness ?? Trouble breathing Call your local emergency number (911 in the ) if: ?? You have trouble breathing, and your lips look purple or blue. ?? You have a seizure. Call your doctor if: ?? You are dizzy, or you are urinating less or not at all. ?? You have a headache with a stiff neck, and you feel tired or confused. ?? You have new pain or pressure in your chest. ?? Your symptoms, such as shortness of breath, vomiting, or diarrhea, get worse. ?? Your symptoms, such as fever and coughing, seem to get better, but then get worse. ?? You have new muscle pain or weakness. ?? You have questions or concerns about your condition or care. Treatment for influenza may include any of the following: ?? Acetaminophen decreases pain and fever. It is available without a doctor's order. Ask how much to take and how often to take it. Follow directions. Read the labels of all other medicines you are using to see if they also contain acetaminophen, or ask your doctor or pharmacist. Acetaminophen can cause liver damage if not taken correctly. Do not use more than 4 grams (4,000 milligrams) total of acetaminophen in one day. ?? NSAIDs , such as ibuprofen, help decrease swelling, pain, and fever. This medicine is available with or without a doctor's order. NSAIDs can cause stomach bleeding or kidney problems in certain people. If you take blood thinner medicine, always ask your healthcare provider if NSAIDs are safe foryou. Always read the medicine label and follow directions. ?? Antivirals help fight a viral infection. Manage your symptoms: ?? Rest as much as you can to help you recover. ?? Drink liquids as directed to help prevent dehydration. Ask how much liquid to drink each day andwhich liquids are best for you. Prevent the spread of the flu: ?? Wash your hands often. Use soap and water. Wash your hands after you use the bathroom, change a child's diapers, or sneeze. Wash your hands before you prepare or eat food. Use gel hand cleanser that has 60% alcohol, when soap and water are not available. Do not touch your eyes, nose, or mouth unless you have washed your hands first. ?? Cover your mouth when you sneeze or cough. Cough into a tissue or the bend of your arm. If you use a tissue, throw it away immediately and wash your hands. ?? Clean shared items with a germ-killing yard cleaner. Clean table surfaces, doorknobs, and light switches. Do not share towels, silverware, and dishes with people who are sick. Wash bed sheets, towels, silverware, and dishes with soap and water. ?? Wear a mask over your mouth and nose if you are sick. The face mask may help protect others frombecoming infected with the flu. Wear the mask when in common areas of your home or if you seek carewith a healthcare provider. ?? Stay away from others if you are sick. Stay at home until 24 hours after your fever and symptomsare gone. ?? Influenza vaccine helps prevent influenza (flu). Everyone older than 6 months should get a yearly influenza vaccine. Get the vaccine as soon as it is available, usually in February or March each year. Follow up with your healthcare provider as directed: Write down your questions so you remember to ask them during your visits. ?? Copyright [employer] 2019 Information is for End User's use only and may not be sold, redistributed or otherwise used for commercial purposes. All illustrations and images included in CareNotes?? are the copyrighted property of [employer].D.A[employer]M., Inc. or Everyone [employer] The above information is an financial aid administrator only. It is not intended as medical advice for individual conditions or treatments. Talk to your doctor, nurse or pharmacist before following any medical regimen to see if it is safe and effective for you. documented in this encounter Progress Notes * Maria Elena Gupta APRN-CNP - 09/21/2018 11:29 AM CDT Subjective: Ashley Strong is a 73 year old female who presents for evaluation: Chief Complaint Patient presents with ??? Fever ??? Cough Primary Care Physician is Sundeep Green MD. Symptoms include Dry Cough, chills, body aches, headache, which all started yesterday. Pt has also felt feverish. No known sick contacts. Onset of symptoms was 1 day ago, unchanged since that time. Pt has not taken her temperature. Pt did get flu vaccine this season. She is drinking moderate amounts of fluids. Evaluation to date: none. Treatment to date: aleve No Known Allergies Outpatient Prescriptions Marked as Taking for the 09/21/18 encounter (Office Visit) with Provider, Gloria Root Medication Sig ??? Naproxen Sodium (ALEVE PO) Past Medical History: Diagnosis Date ??? NEGATIVE PAST MEDICAL HISTORY - SEE PROBLEM LIST Past Surgical History: Procedure Laterality Date ??? Cholecystectomy ??? Hysterectomy ??? Tonsillectomy Social History Social History ??? Marital status: Spouse name: N/A ??? Number of children: N/A ??? Years of education: N/A Occupational History ??? Not on file. Social History Main Topics ??? Smoking status: Never Smoker ??? Smokeless tobacco: Never Used ??? Alcohol use Not on file ??? Drug use: Not on file ??? Sexual activity: Not on file Other Topics Concern ??? Not on file Social History Narrative ??? No narrative on file Medications reviewed. Review of Systems Pertinent items are noted in HPI Constitutional: Positive for fatigue, fevers, chills, sweats Eyes: Negative Ears, nose, mouth, and throat: Negative Respiratory: Positive for acute cough Cardiovascular: Negative Gastrointestinal: Negative Hematologic/lymphatic: Negative Musculoskeletal:Positive for body aches Neurological: Positive for headaches Objective: BP 166/78 Pulse 101 Temp 99.9 ??F (37.7 ??C) (Oral) Resp 16 Ht 1.6 m (5' 3 ) Wt 71.2 kg (157 lb) SpO2 97% BMI 27.81 kg/m2 Skin: Physical Exam Exam General appearance: alert, cooperative, no distress, oriented to person, place, and time, wellappearing Head: normocephalic, without trauma Eyes: sclera and conjunctiva clear, EOMI and PERRLA, lids normal Ears: canals clear, tympanic membranes normal, hearing intact to voice Nose: nares open; no septal deviation is noted, nasal mucosa not inflamed, no maxillary tenderness Throat: no mucous membrane abnormalities, lips, mucosa, and tongue normal; teeth and gums normal Neck: range of motion is intact, Nodes: no cervical adenopathy, non tender to palpation Lungs: breath sounds normal and symmetric; no rales or wheezes, non productive cough noted during exam Heart: regular rhythm, normal S1 and S2, without murmurs, gallops or rubs Neurologic: mental status normal; alert and oriented X 3; Assessment: . Encounter Diagnoses Name Primary? Influenza A Yes ??? Elevated blood pressure reading without diagnosis of hypertension Plan: Discussed dx and tx of URIs Discussed the importance of avoiding unnecessary abx therapy. Suggested symptomatic OTC remedies. RTC prn. Pt advised to follow up with PCP in regards to blood pressure readings today. Pt states understanding. Pt advised to monitor blood pressure at home and keep record of readings to take with her to herP appt. Discussed with pt the possible risk and side effects of tamiflu, such as: headache, nausea, vomiting, diarrhea, pain, rash, delirium, behavioral disturbances, anaphylaxis, self-injury, jarvis-titi syndrome, rashes, pt states understanding and pt refused script Pt advised to read insert from pharmacy on tamiflu Drink plenty of fluids and get plenty of rest If symptoms persist greater than 7 days or worsen at any time, follow up with a health care provider, clinic or emergency care Educational material given on influenza Work/School note offered Influenza ??? Supportive care is the focus of care with influenza-make sure to stay well- hydrated and treat symptoms with over the counter medications for symptom relief. ??? Take guaifenesin expectorants, i.e. Maximum Strength Mucinex, Robitussin, or store brand for chest congestion. ??? For cough, dextromethorphan (Delsym syrup, Robitussin cough capsules or store brand). Dextromethorphan is considered safe for and breast feeding women. ??? Antihistamine, i.e. Claritin, Zyrtec or Benadryl for nasal drainage, per package directions. ??? Increase oral fluids to at least 2 liters (2 quarts) of non-caffeinated, non-alcoholic beverages daily ??? Increase rest, monitor temperature ??? May alternate acetaminophen (Tylenol) and ibuprofen (Motrin or Advil) with food every 4-6 hoursfor fever, body aches, headache or sore throat. Do not exceed maximum daily dose per package instructions ??? May use hard candy, throat lozenges, Chloraseptic spray or warm salt water gargles to soothe throat ??? Activity as tolerated, Avoid crowds and large groups ??? Avoid spreading germs by washing hands frequently and covering mouth when coughing ??? People with influenza are contagious 1 day before symptoms begin and up to 7 days after gettingck Influenza Follow-up ??? Follow up with the clinic, primary care provider(Sundeep Green MD) or urgent care if symptoms become more severe. ??? If you begin to feel better, then feel significantly worse, see your primary care provider or go to urgent care / ER ??? Call 911 or have someone take you to ER/Urgent Care if any difficulty with breathing or shortness of breath, if you develop high fevers that do not respond to ibuprofen (Advil / Motrin) or acetaminophen (Tylenol) , if you have a hard time awakening or staying awake or become lethargic or confused, or if you develop new stiffness in your neck. ??? If you need to be excused from more than 3 days off from work, please follow-up with your PCP. Continue to follow up with Sundeep Grene MD as directed. After Visit Summary reviewed with patient. The patient indicates understanding of these issues and agrees with the plan. Patient discharged to Home .Maria Elena Gupta APRN-AUGUSTIN 09/21/2018 11:44 AM Orders Placed This Encounter ??? INFLUENZA A+B - POINT OF CARE (AMB) Recent Results (from the past 24 hour(s)) INFLUENZA A+B - POINT OF CARE (AMB) Collection Time: 09/21/18 11:33 AM Result Value Ref Range Influenza A Antigen Rapid Positive (Abnormal) Negative Influenza B Antigen Rapid Negative Negative Influenza Internal Control positive NEGATIVE - POSITIVE Influenza Lot Number [id number] Influenza Expiration Date 05 06 2020 documented in this encounter Plan of Treatment Not on file documented as of this encounter Procedures Procedure Name Priority Date/Time Associated Diagnosis Comments INFLUENZA A+B - POINT OF CARE (AMB) Routine 09/21/2018 11:33 AM CDT Influenza A documented in this encounter Results * (ABNORMAL) INFLUENZA A+B - POINT OF CARE (AMB) (09/21/2018 11:33 AM CDT) Influenza A Antigen Rapid Positive(A) Negative Influenza B Antigen Rapid Negative Negative Influenza Internal Control positive NEGATIVE - POSITIVE Influenza Lot Number [id number] Influenza Expiration Date 05 06 2020 Other NASOPHARYNGEAL SWAB / Unknown 09/21/2018 11:33 AM CDT Maria Elena [facility] - POINT OF CA RE ORDERABLES documented in this encounter Visit Diagnoses Diagnosis Influenza A- Primary Influenza with other respiratory manifestations Elevated blood pressure reading without diagnosis of hypertension documented in this encounter Care Teams Android Programmer Relationship Specialty Start Date End Date Sundeep Green MD [address] [place] [id number] PCP - General 02/25/10 06/12/22 documented as of this encounter
--- OUTSIDE RECORDS SUMMARY | 2024-07-01 05:49 | XMS_ITS | Encounter Summary ---
Author Organization [facility] Address [address] [place] [address] Care Team Providers Care Paper Reclaiming Machine Operator Name Role Phone Marquita Yu MD Primary Care Provider Reason for Visit * Reason Comments Follow-up 6 mo Encounter Details Date Type Department Care Team (Late st Contact Info) Description 11/16/2023 2:30 PM CDT Office Visit [facility] Cardiology [address] [place] [address] Lisa Mai NP [address] [place] [address] PAT (paroxysmal atrial tachycardia) (HCC) (Primary Dx); Premature atrial contractions; Essential (primary) hypertension Social History Tobacco Use Types Packs/Day Years Used Date Smoking Tobacco: Never Smokeless Tobacco: Never Tobacco Cessation:Counseling Given: Not Answered Personal Safety Answer Date Recorded Getting School Help Needed Not on file 08/12 Comments No Sex and Gender Information Value Date Recorded Sex Assigned at Not on file Legal Sex Female 1:59 PM CHIEF OF PLANNING Gender Identity Not on file Sexual Orientation Not on file documented as of this encounter Last Filed Vital Signs Vital Sign Reading Time Taken Comments Blood Pressure 130/60 11/16/2023 2:20 PM CDT Pulse 59 11/16/2023 2:20 PM CDT Temperature - - Respiratory Rate - - Oxygen Saturation 99% 11/16/2023 2:20 PM CDT Inhaled Oxygen Concentration - - Weight 67.6 kg (149 lb) 11/16/2023 2:20 PM CDT Height 157.5 cm (5' 2 ) 11/16/2023 2:20 PM CDT Body Mass Index 27.25 11/16/2023 2:20 PM CDT documented in this encounter Progress Notes * Lisa Mai NP - 11/16/2023 2:30 PM CDT Images from the original note were not included. [facility] [address] [place] [address] Date of Visit: 11/16/2023 Patient ID: Ashley Strong 1945 Chief Complaint Patient presents with Follow-up 6 mo Ashley Strong is a 78 y.o. female who is a former patient of Dr. Stanton with a history of PAC's returning to the office for routine follow-up. History of Present Illness: Ashley Strong is a 78 y.o. female with [...] nodule. Lifetime nonsmoker, noETOH, no prior CAD, IN, CHF, DVT/PE or edema. Up and down [...] occ she had AFib. Personal review of Apple rhythma data on her phone indicated 5 [...] has hernia otherwise ok. Going to start Entyvio 11/16/2023 office visit with SET UP / OPERATOR: She is here for routine follow-up and has no specific concerns. She denies palpitations. She continues to wear an Apple watch and has not gotten any alerts of irregular heart rhythm. She gets occasional discomfort in her chest which typically occurs in the evening after eating. There has been no progression of the symptoms. She has a history of esophageal dilatation. She is now on Rinvoq for treatment of her ulcerative colitis and feels it is helping. Records that I personally reviewed on the day of this visit include: (the interpretation is outlined in the HPI above) 05/08/[address] Stanton. I have also reviewed: allergies, current medications, past family history, past medical history, past social history, past surgical history and problem list. Medical History: Past Medical History: Diagnosis Date Hyperlipidemia Hypertension No pertinent past medical history Past Surgical History: Procedure Laterality Date CHOLECYSTECTOMY HYSTERECTOMY TONSILLECTOMY AND ADENOIDECTOMY Social History Tobacco Use Smoking Status Never Smokeless Tobacco Never Social History Tobacco Use Smoking status: Never Smokeless tobacco: Never Substance and Sexual Activity Drug use: Not Currently Sexual activity: None Alcohol Use: Not on file Family History Problem Relation Age of Onset Heart failure Mother Heart disease Mother Hypertension Mother Heart disease Father Hypertension Father Stroke Sister Atrial fibrillation Sister Atrial fibrillation Sister Atrial fibrillation Brother Atrial fibrillation Mother's Sister Review of Systems Constitutional: Negative for malaise/fatigue, weight gain and weight loss. Cardiovascular: Negative for chest pain, dyspnea on exertion, leg swelling, near-syncope, orthopnea, palpitations, paroxysmal nocturnal dyspnea and syncope. Respiratory: Negative for cough, shortness of breath and sleep disturbances due to breathing. Hematologic/Lymphatic: Negative for bleeding problem. Does not bruise/bleed easily. Vital Signs: BP 130/60 (BP Location: Left arm, Patient Position: Sitting) Pulse 59 Ht 157.5 cm (5' 2 ) Wt 67.6 kg (149 lb) SpO2 99% BMI 27.25 kg/m?? Physical Exam Constitutional: General: She is not in acute distress. Appearance: She is well-developed. HENT: Head: Normocephalic and atraumatic. Eyes: General: No scleral icterus. Conjunctiva/sclera: Conjunctivae normal. Neck: Vascular: No JVD. Trachea: No tracheal deviation. Cardiovascular: Rate and Rhythm: Normal rate and regular rhythm. Heart sounds: Normal heart sounds. No murmur heard. Pulmonary: Effort: Pulmonary effort is normal. No respiratory distress. Breath sounds: Normal breath sounds. Skin: General: Skin is warm and dry. Neurological: Mental Status: She is alert and oriented to person, place, and time. Psychiatric: Mood and Affect: Mood normal. Behavior: Behavior normal. No Known Allergies Current Outpatient Medications: losartan (COZAAR) 25 mg tablet, , Disp: , Rfl: multivitamin,tx-minerals capsule, Take by mouth Take 1 tablet by mouth every three days, Disp: , Rfl: upadacitinib (Rinvoq) 45 mg tablet extended release 24 hr, Take 1 tablet (45 mg total) by mouth daily, Disp: , Rfl: metoprolol XL (TOPROL-XL) 50 mg extended release tablet, TAKE 1 TABLET BY MOUTH EVERY DAY, Disp: 90tablet, Rfl: 3 No results found for: POTASSIUM , BUNSER , CREATININE , CHOL , TRIG , LDL , LDLCALC , HDL No results found for: WBC , HGB , HCT , MCV , PLT No results found for this or any previous visit (from the past 4 hour(s)). Lab Results Component Value Date POCCHOL 207 10/31/2022 POCHDL 46 10/31/2022 POCTRIG 179 10/31/2022 POCLDL 125 10/31/2022 POCNONHDL 161 10/31/2022 POCCHLPL 207 10/31/2022 Assessment: Diagnoses and all orders for this visit: PAT (paroxysmal atrial tachycardia) (HCC) (Primary) Premature atrial contractions Essential (primary) hypertension Plan/Recommendations: There was a concern for possible atrial fibrillation seen on an Apple watch. When she wore a 30 dayevent monitor there was no atrial fibrillation seen. There was frequent PACs with a burden of 16% and there was brief PAT. After starting metoprolol a subsequent Holter monitor showed reduction of her PAC burden to 6%. She continues to wear her Apple watch and has had no alerts of arrhythmias. Continue metoprolol succinate 50 mg daily. Blood pressure control looks reasonable. Continue losartan and metoprolol. She requests a transition her ongoing care from Dr. Stanton to Dr. Ortiz. Return to the office forroutine follow-up in 6-9 months. Reach out to me sooner with any questions or concerns and I can assist. She verbalized understanding and was appreciative. 11/16/2023 NATALI He- Nurse Practitioner with [facility] This note is dictated and transcribed using [employer] Fluency Direct Software. Drop Tester variancesmay occur. Despite proofreading, typographical errors may occur. documented in this encounter Plan of Treatment Not on file documented as of this encounter Visit Diagnoses Diagnosis PAT (paroxysmal atrial tachycardia) (HCC)- Primary Paroxysmal supraventricular tachycardia Premature atrial contractions Supraventricular premature beats Essential (primary) hypertension Unspecified essential hypertension documented in this encounter Discontinued Medications Medication Sig Discontinue Reason Start Date End Da te mesalamine (APRISO) 0.375 gram 24 hr capsule TAKE 4 CAPSULES BY MOUTH IN THE MORNING Alternate therapy 05/30/2022 11/16/2023 documented as of this encounter Historical Medications * This list may reflect changes made after this encounter. upadacitinib (Rinvoq) 45 mg tablet extended release 24 hr Take 1 tablet (45 mg total) by mouth daily added in this encounter Care Teams Paper Reclaiming Machine Operator Relationship Specialty Start Date End Date Marquita Yu MD [facility] [place] [address] PCP - General Family Practice 05/08/23 documented as of this encounter
--- OUTSIDE RECORDS SUMMARY | 2024-07-01 05:49 | XMS_ITS | Referral Summary ---
Author Organization [facility] [address] [facility] lto Address [address] [place] [address] Care Team Providers Care Chocolate Production Machine Operator Name Role Phone Marquita Yu [...] nodule 08/29/2021 Chronic cough 08/29/2021 COVID 05/02/2021 Social History Tobacco Use Types Packs/Day Years Used Date Smoking Tobacco: Never Smokeless Tobacco: Never Tobacco Cessation:Counseling Given: Not Answered Personal Safety Answer Date Recorded Getting School Help Needed Not on file 08/12 Comments No Sex and Gender Information Value Date Recorded Sex Assigned at Not on file Legal Sex Female 1:59 PM EMT P Gender Identity Not on file Sexual Orientation Not on file Last Filed Vital Signs Vital Sign Reading Time Taken Comments Blood Pressure 130/60 11/16/2023 2:20 PM CDT Pulse 59 11/16/2023 2:20 PM CDT Temperature 37.2 ??C (99 ??F) 04/28/2021 2:45 PM EMT P Respiratory Rate 16 08/29/2021 11:04 AM CDT Oxygen Saturation 99% 11/16/2023 2:20 PM CDT Inhaled Oxygen Concentration - - Weight 67.6 kg (149 lb) 11/16/2023 2:20 PM CDT Height 157.5 cm (5' 2 ) 11/16/2023 2:20 PM CDT Body Mass Index 27.25 11/16/2023 2:20 PM CDT Plan of Treatment Not on file Insurance [employer] MEDICARE PPO D[employer] MEDICARE PPO Care Teams Chocolate Production Machine Operator Relationship Specialty Start Date End Date Marquita Yu MD [address] [facility] [address] [place], [place] [id number] PCP - General Family Practice 05/08/23
--- OUTSIDE RECORDS SUMMARY | 2024-07-01 05:49 | XMS_ITS | Encounter Summary ---
Author Organization [facility] Address [address] [place] [address] Care Team Providers Care Aquatic Centre Manager Name Role Phone Eda Graves NP Primary Care Provider [phone] Encounter Details Date Type Department Care Team (Late st Contact Info) Description 11/23/2022 Telephone [facility] Cardiology [address] [place] [address] Jose Stanton MD [address] [place] [address] Social History Tobacco Use Types Packs/Day Years Used Date Smoking Tobacco: Never Smokeless Tobacco: Never Comments No Sex and Gender Information Value Date Recorded Sex Assigned at Not on file Legal Sex Female 1:59 PM ADJUNCT MATHEMATICS INSTRUCTOR Gender Identity Not on file Sexual Orientation Not on file documented as of this encounter Ordered Prescriptions Prescription Sig Dispense Quantity Refills Last Filled Start Date End Date metoprolol XL (TOPROL-XL) 50 mg extended release tablet Take 1 tablet (50 mg total) by mouth daily 30 tablet 11 11/23/2022 11/16/2023 documented in this encounter Miscellaneous Notes * Addendum Note - Ronaldo Deleon RN - 11/23/2022 12:56 PM CDTAddended by: RONALDO DELEON on: 11/23/2022 12:56 PM Modules accepted: Orders * Telephone Encounter - Ronaldo Deleon RN - 11/23/2022 12:56 PM CDT Spoke with pt, she verbalized understanding of AD's message and new Rx was sent to pharm. * Telephone Encounter - Lisa Ely - 11/23/2022 12:01 PM CDT Pt returning call for Ronaldo requesting callback. Contact [phone] * Telephone Encounter - Ronaldo Deleon RN - 11/23/2022 11:52 AM CDT ----- Message from Jose Stanton MD sent at 11/22/2022 4:40 PM CDT ----- Frequent PACs less than 8% burden several brief runs of SVT without corresponding symptoms, longestwas 13 beats in duration. No atrial fibrillation/atrial flutter. Rare PVCs. No prolonged pauses or high-grade AV blocks. As tolerated would favor increase in Toprol to 50 mg daily. LM on VM reviewing message from AD. Requested callback to discuss. documented in this encounter Plan of Treatment Not on file documented as of this encounter Visit Diagnoses Not on filedocumented in this encounter Discontinued Medications Medication Sig Discontinue Reason Start Date End Da te metoprolol XL (TOPROL-XL) 25 mg extended release tablet Take 1 tablet (25 mg total) by mouth daily Reorder 08/07/2022 11/23/2022 documented as of this encounter Care Teams Aquatic Centre Manager Relationship Specialty Start Date End Date Eda Graves NP PCP - General Family Medicine 07/06/22 05/07/23 documented as of this encounter
--- OUTSIDE RECORDS SUMMARY | 2024-07-01 05:49 | XMS_ITS | Referral Summary ---
Author Organization [facility] Address [address] [place] [address] Care Team Providers Care Ticket Seller Name Role Phone Marquita Yu MD Primary Care Provider Source Comments [facility],non-owned Affiliates and Associated Physician Practices is amultiple site organization consisting of ambulatory clinics and hospital sitesin [place], [place], [place] and [place]. This disclosure is being madepursuant to the Care Everywhere program and may not contain all information available regarding this patient. Last updated 18.[facility] Allergies No known active allergies Medications * Be aware that medications may not be up to date on this document. Alwaysverify current medications with the patient. Medication Sig Dispensed Refills Start Date End Date Status Naproxen Sodium (ALEVE PO) Active Social History Tobacco Use Types Packs/Day Years [...] 09/21/2018 11:30 AM CDT Plan of Treatment Not on file Care Teams Ticket Seller Relationship Specialty Start Date End Date Marquita Yu MD [address] [place] [address] PCP - General 06/13/22
--- OUTSIDE RECORDS SUMMARY | 2024-07-01 05:50 | XMS_ITS | Encounter Summary ---
Author Organization [facility] Address [address] [place] [address] Care Team Providers Care Courtesy Clerk Name Role Phone Eda Graves NP Primary Care Provider [phone] Reason for Visit * Cardiology (Routine) - Closed Specialty Diagnoses / Procedures Referred By Contac t Referred To Contact Diagnoses PAT (paroxysmal atrial tachycardia) (HCC) Premature atrial contractions Procedures 48 HR Holter Monitor MO EXTERNAL ECG SCANNING ANALYSIS REPORT MO XTRNL ECG & 48 HR RECORDING Jose Stanton MD Phone: tel: fax: [facility] Referral ID Status Reason Start Date Expiration Date Visits Re quested Visits Authorized [id number] Closed 10/31/2022 11/30/2023 1 1 Encounter Details Date Type Department Care Team (Latest Contact Info) Description 11/06/2022 9:00 AM CDT Ancillary Procedure [facility] Cardiology [address] [facility] [address] [place] [address] PAT (paroxysmal atrial tachycardia) (CMS/HCC) (HCC); Premature atrial contractions Social History Tobacco Use Types Packs/Day Years Used Date Smoking Tobacco: Never Smokeless Tobacco: Never Comments No Sex and Gender Information Value Date Recorded Sex Assigned at Not on file Legal Sex Female 1:59 PM AUDIO VISUAL TECH Gender Identity Not on file Sexual Orientation Not on file documented as of this encounter Plan of Treatment Not on file documented as of this encounter Procedures Procedure Name Priority Date/Time Associated Diagnosis Comments HOLTER MONITOR 48 HR Routine 11/06/2022 11:56 AM CDT PAT (paroxysmal atrial tachycardia) (CMS/HCC) (HCC) Premature atrial contractions documented in this encounter Results * 48 HR Holter Monitor (11/06/2022 11:56 AM CDT) Anatomical Region Laterality Modality Other Narrative 11/16/2022 4:36 PM CDT AMBULATORY CNC MILL AND LATHE OPERATOR REPORT Patient Name: Ashley Strong Date of : 1945 ?? Requesting Physician: ??Dr. Stanton Date of interpretation: 11/16/22 Type of monitor : ??24 hour Holter monitor Date of the study/Enrollment period: ??11/06/2022 through 11/07/2022 Indication: ??Supraventricular tachycardia Quality of the study: ??Good Interpretation: Underlying normal sinus rhythm heart rate variability between 61 and 128 beats per minute with an average heart rate of 80 beats per minute. There is no atrial fibrillation or flutter. ??There was frequent supraventricular ectopy totaling 9268 beats was is 7.87% ectopic burden. ?? Eight thousand one hundred one isolated PACs, 544 atrial couplets and there were is 23 runs of paroxysmal supraventricular tachycardia with the longest run being for 13 beats and the fastest event being at a rate of 118 beats per minute. ?? Low-frequency ventricular ectopy totaling 45 PVCs. ??No sustained or nonsustained runs of ventricular tachycardia. ?? No patient triggered events noted No significant heart block or pauses Conclusions: Sinus rhythm with average heart rate of 80 beats per minute Frequent supraventricular ectopy including isolated PACs, atrial couplets and several short atrial runs Low-frequency ventricular ectopy No symptoms Voice recognition software was used to complete this document, therefore, ironworker apprentice variances may occur. Fish Ortiz MD, [facility] 11/16/22 Procedure Note Fish Ortiz MD - 11/16/2022 AMBULATORY CNC MILL AND LATHE OPERATOR REPORT Patient Name: Ashley Strong Date of : 1945 Requesting Physician: Dr. Stanton Date of interpretation: 11/16/22 Type of monitor : 24 hour Holter monitor Date of the study/Enrollment period: 11/06/2022 through 11/07/2022 Indication: Supraventricular tachycardia Quality of the study: Good Interpretation: Underlying normal sinus rhythm heart rate variabilitybetween 61 and 128 beats per minute with an average heart rate of 80 beatsper minute. There is no atrial fibrillation or flutter. There was frequentsupraventricular ectopy totaling 9268 beats was is 7.87% ectopic burden.Eight thousand one hundred one isolated PACs, 544 atrial couplets andthere were is 23 runs of paroxysmal supraventricular tachycardia with thelongest run being for 13 beats and the fastest event being at a rate of118 beats per minute. Low-frequency ventricular ectopy totaling 45 PVCs. No sustained ornonsustained runs of ventricular tachycardia. No patient triggered events noted No significant heart block or pauses Conclusions: Sinus rhythm with average heart rate of 80 beats per minute Frequent supraventricular ectopy including isolated PACs, atrial coupletsand several short atrial runs Low-frequency ventricular ectopy No symptoms Voice recognition software was used to complete this document, therefore,ironworker apprentice variances may occur. Fish Ortiz MD, [facility] 11/16/22 Jose Stanton MD CV CARDIAC SERVICES PROC EDURES Final Result documented in this encounter Visit Diagnoses Diagnosis PAT (paroxysmal atrial tachycardia) (HCC) Paroxysmal supraventricular tachycardia Premature atrial contractions Supraventricular premature beats documented in this encounter Care Teams Courtesy Clerk Relationship Specialty Start Date End Date Eda Graves NP PCP - General Family Medicine 07/06/22 05/07/23 documented as of this encounter
--- OUTSIDE RECORDS SUMMARY | 2024-07-01 05:50 | XMS_ITS | Encounter Summary ---
Author Organization [facility] Address [address] [place] [address] Care Team Providers Care Hand Surgeon Name Role Phone Marquita Yu MD Primary Care Provider Reason for Visit * Reason Onset Date Comments Covid-19 Home Monitoring 05/01/2021 Enrollm ent call day 2 Encounter Details Date Type Department Care Team (Late st Contact Info) Description 05/01/2021 Telephone [facility] Accountable Care Organization [address] [place] [address] Mitali Field MA [address] [place] [address] [address] [place] [address] Covid-19 Home Monitoring (Enrollment call day 2 ) Social History Tobacco Use Types Packs/Day Years Used Date Smoking Tobacco: Never Smokeless Tobacco: Never Comments No Sex and Gender Information Value Date Recorded Sex Assigned at Not on file Legal Sex Female 1:59 PM IMPORT SPECIALIST Gender Identity Not on file Sexual Orientation Not on file documented as of this encounter Miscellaneous Notes * Telephone Encounter - Mitali Field MA - 05/01/2021 9:57 AM CST This patient was identified as a candidate for the [facility]/ COVID home monitoring program. The patient was contacted via phone for enrollment in the program. The patient has declined to participate in the automated MyChart Bronze Plater Program, but has verbally agreed to the Phone Only Home Monitoring Program, which includes being contacted for a daily phone assessment by a [facility]/ staff member. The patient was informed that members of the healthcare team will contact them depending on the symptoms that they report. This call could come from a variety of phone numbers depending on which member of the healthcare team is contacting the patient, and the patient should be prepared to answer calls from a variety of phone numbers. If the patient is unable to be reached for 3 days, they will be disenrolled from the program. Patient is aware that we will try and reach them at every available phone number, including HIPAA contacts. After review, the patient agreed to participate. The ???COVID19 Home Monitoring?? order was placedto enroll the patient in the phone only version of the program. RT SPECIALIST documented in this encounter Plan of Treatment Not on file documented as of this encounter Visit Diagnoses Not on filedocumented in this encounter Additional Health Concerns Infection Onset Date Last Indicated Resolved Time COVID19 04/28/2021 04/28/2021 05/12/2021 3:06 AM IMPORT SPECIALIST documented as of this encounter Care Teams Hand Surgeon Relationship Specialty Start Date End Date Marquita Yu MD PCP - General Family Practice 04/28/21 07/05/22 documented as of this encounter
--- OUTSIDE RECORDS SUMMARY | 2024-07-01 05:50 | XMS_ITS | Encounter Summary ---
Author Organization [facility] Address [address] [place] [address] Care Team Providers Care Technologist Development Name Role Phone Marquita Yu MD Primary Care Provider Encounter Details Date Type Department Care Team (Late st Contact Info) Description 04/29/2021 5:25 AM MIXING TANK OPERATOR Lab [address] [address] Viral syndrome; Exposure to confirmed case of COVID-19 Social History Tobacco Use Types Packs/Day Years Used Date Smoking Tobacco: Never Smokeless Tobacco: Never Comments No Sex and Gender Information Value Date Recorded Sex Assigned at Not on file Legal Sex Female 1:59 PM MIXING TANK OPERATOR Gender Identity Not on file Sexual Orientation Not on file documented as of this encounter Plan of Treatment Not on file documented as of this encounter Procedures Procedure Name Priority Date/Time Associated Diagnosis Comments COVID-19 CORONAVIRUS RNA Routine 04/28/2021 3:08 PM MIXING TANK OPERATOR Viral syndrome Exposure to confirmed case of COVID-19 documented in this encounter Results * (ABNORMAL) COVID-19 Coronavirus RNA Nasopharyngeal (04/28/2021 3:08 PM MIXING TANK OPERATOR) COVID-19 RNA Positive( A) Negative MATT PACKER Comment: Interpretive data: Synonyms for this test include: PCR and NAAT . ??This test is performed using the [employer] Xpert Xpress assay. This is a real-time RT-PCR test intended for the qualitative detection of nucleic acid from the SARS-CoV-2. This assay has been reviewed by the FDA for Emergency Use Authorization (EUA). The performance characteristics have been verified by the performing laboratory. Results must be considered in the clinical context and a negative result does not rule out infection. Interpretive data last revised July 22, 2020. Employeed in healthcare? No MATT PACKER status? No MATT PACKER Group care resident? No MATT PACKER Hospitalized? No MATT CH Is patient in ICU? No MATT PACKER Symptomatic as defined by CDC? Yes MATT Nasopharyngeal 04/28/2021 3: 08 PM MIXING TANK OPERATOR 04/29/2021 5:56 AM MIXING TANK OPERATOR Narrative MATT - 04/29/2021 7:23 AM MIXING TANK OPERATOR What is the reason for testing?->Symptoms of COVID-19 in high-risk group Date of Symptom Onset->04/25/21 Chery Law TELEHEALTH CASE MANAGER LAB MICROBIOLOGY - GENERAL OR DERABLES Final Result MATT [address] Department [place] [address] documented in this encounter Visit Diagnoses Diagnosis Viral syndrome Unspecified viral infection, in conditions classified elsewhere and of unspecified site Exposure to confirmed case of COVID-19 documented in this encounter Additional Health Concerns Infection Onset Date Last Indicated Resolved Time COVID: Suspected 04/28/2021 04/28/2021 04/29/2021 7:23 AM MIXING TANK OPERATOR documented as of this encounter Care Teams Technologist Development Relationship Specialty Start Date End Date Marquita Yu MD PCP - General Family Practice 04/28/21 07/05/22 documented as of this encounter
--- OUTSIDE RECORDS SUMMARY | 2024-07-01 05:50 | XMS_ITS | Encounter Summary ---
Author Organization [facility] Address [address] [place] [address] Care Team Providers Care Fiberglass Boat Builder Name Role Phone Eda Graves DRILLER AND BROACHER Primary Care Provider [phone] Encounter Details Date Type Department Care Team (Late st Contact Info) Description 07/06/2022 Telephone [facility] Cardiology [address] [facility] [address] [place] [address] Jose Stanton MD [address] [place] [address] Social History Tobacco Use Types Packs/Day Years Used Date Smoking Tobacco: Never Smokeless Tobacco: Never Comments No Sex and Gender Information Value Date Recorded Sex Assigned at Not on file Legal Sex Female 1:59 PM BENCH LOOM WEAVER Gender Identity Not on file Sexual Orientation Not on file documented as of this encounter Miscellaneous Notes * Telephone Encounter - Rosalie Ann MA - 07/06/2022 3:34 PM CST Office note faxed. H LOOM WEAVER * Telephone Encounter - Masha Tineo - 07/06/2022 3:22 PM CST Ene called from Eda Graves DRILLER AND BROACHER office (PCP) requesting most recent office visit note be faxed to their office. Thank you. Contact: H LOOM WEAVER documented in this encounter Plan of Treatment Not on file documented as of this encounter Visit Diagnoses Not on filedocumented in this encounter Care Teams Fiberglass Boat Builder Relationship Specialty Start Date End Date Eda Graves NP PCP - General Family Medicine 07/06/22 05/07/23 documented as of this encounter
--- OUTSIDE RECORDS SUMMARY | 2024-07-01 05:50 | XMS_ITS | Encounter Summary ---
Author Organization [facility] Address [address] [place] [address] Care Team Providers Care Human Resources Designate Name Role Phone Marquita Yu MD Primary Care Provider Encounter Details Date Type Department Care Team (Late st Contact Info) Description 04/29/2021 Telephone [facility] [place] [address] [place] [address] Kimberly Crenshaw MA Social History Tobacco Use Types Packs/Day Years Used Date Smoking Tobacco: Never Smokeless Tobacco: Never Comments No Sex and Gender Information Value Date Recorded Sex Assigned at Not on file Legal Sex Female 1:59 PM CARPENTER ROUGH Gender Identity Not on file Sexual Orientation Not on file documented as of this encounter Miscellaneous Notes * Telephone Encounter - Kimberly Crenshaw MA - 04/29/2021 12:18 PM CST Patient was notified of positive COVID results. Patient was told if she develops increased SOB or worsening symptoms to go the ER. Patient was told to self- isolate for 10 days since the onset of her symptoms and that she is fever free for 24 hours without the use of fever reducing medications. I also notified the patient that she should notify individuals she may have had contact with while ill and 2 days prior to symptom onset. Patient verbalized understanding. ENTER ROUGH * Telephone Encounter - Kimberly Crenshaw MA - 04/29/2021 12:18 PM CST ----- Message from Valdez Bernal NP sent at 04/29/2021 8:38 AM CARPENTER ROUGH ----- Please notify patient of positive COVID-19 test. If he/she develops increased shortness of breath or worsening symptoms he/she should present to the ED. Patient should isolate for 10 days from symptom onset and be fever free for at least 24 hours prior to ending quarantine/isolation. Patient shouldnotify individuals they may have had contact with while ill and least two days prior to symptom onset. ENTER ROUGH documented in this encounter Plan of Treatment Not on file documented as of this encounter Visit Diagnoses Not on filedocumented in this encounter Additional Health Concerns Infection Onset Date Last Indicated Resolved Time COVID: Suspected 04/28/2021 04/28/2021 04/29/2021 7:23 AM CARPENTER ROUGH COVID19 04/28/2021 04/28/2021 05/12/2021 3:06 AM CARPENTER ROUGH documented as of this encounter Care Teams Human Resources Designate Relationship Specialty Start Date End Date Marquita Yu MD PCP - General Family Practice 04/28/21 07/05/22 documented as of this encounter
--- OUTSIDE RECORDS SUMMARY | 2024-07-01 05:50 | XMS_ITS | Encounter Summary ---
Author Organization [facility] Address [address] [place] [address] Care Team Providers Care Stitch Wheeler Name Role Phone Marquita Yu MD Primary Care Provider Reason for Visit * Reason Onset Date Comments Covid-19 Home Monitoring 05/02/2021 daily c all Encounter Details Date Type Department Care Team (Late st Contact Info) Description 05/02/2021 Telephone [facility] Accountable Care Organization [address] [place] [address] Sanjay Ocampo MA [address] [facility] [address] [place] [address] Covid-19 Home Monitoring (daily call ) Social History Tobacco Use Types Packs/Day Years Used Date Smoking Tobacco: Never Smokeless Tobacco: Never Comments No Sex and Gender Information Value Date Recorded Sex Assigned at Not on file Legal Sex Female 1:59 PM HYDRO STATION OPERATOR Gender Identity Not on file Sexual Orientation Not on file documented as of this encounter Miscellaneous Notes * Telephone Encounter - Holly Moore MA - 05/02/2021 1:08 PM HYDRO STATION OPERATOR COVID-19 Home Monitoring Flowsheet Answers: Temp/Pulse Ox Temp: (no fever) Symptom Monitoring Are you feeling short of breath today?: No Are you having a cough today?: Yes Cough Details:: Better Are you experiencing weakness today?: No How is your appetite compared to yesterday?: Unchanged Are you vomiting?: No Are you experiencing diarrhea? : No This patient has enrolled in the PHONE ONLY version of COVID-19 Home Monitoring Program. COVID-19 Symptom questionnaire was completed today. Symptoms were addressed to be Mild. Escalation was not needed. Next Program Call Due: 05/03 O STATION OPERATOR * Telephone Encounter - Sanjay Ocampo MA - 05/02/2021 12:51 PM CST This patient has enrolled in the PHONE ONLY version of COVID-19 Home Monitoring Program. COVID-19 Symptom questionnaire was not completed today, because the patient could not be reached. Next Program Call Due: 05/03 [facility] Day 1 O STATION OPERATOR documented in this encounter Plan of Treatment Not on file documented as of this encounter Visit Diagnoses Not on filedocumented in this encounter Additional Health Concerns Infection Onset Date Last Indicated Resolved Time COVID19 04/28/2021 04/28/2021 05/12/2021 3:06 AM HYDRO STATION OPERATOR documented as of this encounter Care Teams Stitch Wheeler Relationship Specialty Start Date End Date Marquita Yu MD PCP - General Family Practice 04/28/21 07/05/22 documented as of this encounter
--- OUTSIDE RECORDS SUMMARY | 2024-07-01 05:50 | XMS_ITS | Encounter Summary ---
Author Organization [facility] Medical Group Address [address] [place] [address] Care Team Providers Care Cerner Analyst Name Role Phone Marquita Yu MD Primary Care Provider Reason for Visit * Reason Onset Date Comments Covid-19 Home Monitoring 05/03/2021 daily c all Encounter Details Date Type Department Care Team (Late st Contact Info) Description 05/03/2021 Telephone [facility] Accountable Care Organization [address] [place] [address] Janet Montaño MA [address] [address] Covid-19 Home Monitoring (daily call) Social History Tobacco Use Types Packs/Day Years Used Date Smoking Tobacco: Never Smokeless Tobacco: Never Comments No Sex and Gender Information Value Date Recorded Sex Assigned at Not on file Legal Sex Female 1:59 PM APPRENTICE PAINTER BRUSH Gender Identity Not on file Sexual Orientation Not on file documented as of this encounter Last Filed Vital Signs Vital Sign Reading Time Taken Comments Blood Pressure - - Pulse - - Temperature - - Respiratory Rate - - Oxygen Saturation 96% 05/03/2021 11:29 AM APPRENTICE PAINTER BRUSH Inhaled Oxygen Concentration - - Weight - - Height - - Body Mass Index - - documented in this encounter Miscellaneous Notes * Telephone Encounter - Janet Montaño MA - 05/03/2021 11:35 AM CST COVID-19 Home Monitoring Flowsheet Answers: Temp/Pulse Ox Temp: (no) SpO2: 96 % Symptom Monitoring Are you feeling short of breath today?: No Are you having a cough today?: Yes Cough Details:: Better Are you experiencing weakness today?: No How is your appetite compared to yesterday?: Better Are you vomiting?: No Are you experiencing diarrhea? : No This patient has enrolled in the PHONE ONLY version of COVID-19 Home Monitoring Program. COVID-19 Symptom questionnaire was completed today. Symptoms were addressed to be Mild. Escalation was not needed. Next Program Call Due: 05/04 ENTICE PAINTER BRUSH documented in this encounter Plan of Treatment Not on file documented as of this encounter Visit Diagnoses Not on filedocumented in this encounter Additional Health Concerns Infection Onset Date Last Indicated Resolved Time COVID19 04/28/2021 04/28/2021 05/12/2021 3:06 AM APPRENTICE PAINTER BRUSH documented as of this encounter Care Teams Cerner Analyst Relationship Specialty Start Date End Date Marquita Yu MD PCP - General Family Practice 04/28/21 07/05/22 documented as of this encounter
--- OUTSIDE RECORDS SUMMARY | 2024-07-01 05:50 | XMS_ITS | Encounter Summary ---
Author Organization [facility] Medical Group Address [address] [place] [address] Care Team Providers Care Congregational Care Pastor Name Role Phone Marquita Yu MD Primary Care Provider Reason for Visit * Reason Onset Date Comments Covid-19 Home Monitoring 05/06/2021 daily c all Encounter Details Date Type Department Care Team (Late st Contact Info) Description 05/06/2021 Telephone [facility] Accountable Care Organization [address] [place] [id number] Rakan Hassan LPN [address] [place] [id number] Covid-19 Home Monitoring (daily call ) Social History Tobacco Use Types Packs/Day Years Used Date Smoking Tobacco: Never Smokeless Tobacco: Never Comments No Sex and Gender Information Value Date Recorded Sex Assigned at Not on file Legal Sex Female 1:59 PM ECONOMIC DEVELOPMENT COORDINATOR Gender Identity Not on file Sexual Orientation Not on file documented as of this encounter Miscellaneous Notes * Telephone Encounter - Rakan Hassan LPN - 05/06/2021 2:50 PM ECONOMIC DEVELOPMENT COORDINATOR COVID-19 Home Monitoring Flowsheet Answers: Temp/Pulse Ox Temp: (97.7) Symptom Monitoring Are you feeling short of breath today?: No Are you having a cough today?: Yes Cough Details:: Better Are you experiencing weakness today?: No How is your appetite compared to yesterday?: Unchanged Are you vomiting?: No Are you experiencing diarrhea? : No This patient is being disenrolled from the phone-only version of the COVID-19 home monitoring program for the following reason: Complete The patient has either completed the full 14-day program or has expressed 3 days of improved or no symptoms and 7 days since initial onset. We recommend that they are scheduled for a telemedicine evaluation with a primary care provider within 3 days of completion of the program. For questions or concerns about the home monitoring program, please contact . OMIC DEVELOPMENT COORDINATOR documented in this encounter Plan of Treatment Not on file documented as of this encounter Visit Diagnoses Not on filedocumented in this encounter Additional Health Concerns Infection Onset Date Last Indicated Resolved Time COVID19 04/28/2021 04/28/2021 05/12/2021 3:06 AM ECONOMIC DEVELOPMENT COORDINATOR documented as of this encounter Care Teams Congregational Care Pastor Relationship Specialty Start Date End Date Marquita Yu MD PCP - General Family Practice 04/28/21 07/05/22 documented as of this encounter
--- OUTSIDE RECORDS SUMMARY | 2024-07-01 05:50 | XMS_ITS | Encounter Summary ---
Author Organization [facility] Medical Group Address [address] [place] [address] Care Team Providers Care Bar And Filler Assembler Name Role Phone Marquita Yu MD Primary Care Provider Encounter Details Date Type Department Care Team (Late st Contact Info) Description 08/16/2021 Orders Only [facility] Medical Group Cardiology [address] [place] [address] Fish Ortiz MD [address] [place], [place] [id number] Social History Tobacco Use Types Packs/Day Years Used Date Smoking Tobacco: Never Smokeless Tobacco: Never Comments No Sex and Gender Information Value Date Recorded Sex Assigned at Not on file Legal Sex Female 1:59 PM 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 SALES 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 Gender Identity Not on file Sexual Orientation Not on file documented as of this encounter Plan of Treatment Not on file documented as of this encounter Procedures Procedure Name Priority Date/Time Associated Diagnosis Comments CARDIOLOGY DOCUMENT SCAN Routine 08/16/2021 documented in this encounter Results * SCAN - CARDIOLOGY (08/16/2021) Anatomical Region Laterality Modality Other us Fish Ortiz MD [facility]ERIO Final Result documented in this encounter Visit Diagnoses Not on filedocumented in this encounter Additional Health Concerns Infection Onset Date Last Indicated Resolved Time COVID: Recovered Comment:Added based on recent COVID infection. 05/12/2021 07/27/2021 09/09/2021 3:05 AM C DT documented as of this encounter Care Teams Bar And Filler Assembler Relationship Specialty Start Date End Date Marquita Yu MD PCP - General Family Practice 04/28/21 07/05/22 documented as of this encounter
--- OUTSIDE RECORDS SUMMARY | 2024-07-01 05:50 | XMS_ITS | Encounter Summary ---
Author Organization [facility] Address [address] [place] [address] Care Team Providers Care Diabetes Territory Manager Name Role Phone Unavailable Primary Care Provider Unavailabl e Encounter Details Date Type Department Care Team (Late st Contact Info) Description 02/06/2010 1:30 PM CDT - 02/06/2010 5:35 PM CDT Hospital Encounter [facility] Jaiden Okeefe MD [address] [facility] [address] [place] [address] [address] [place] [address] Disorder of gallbladder; Urinary tract infection; Abnormal results of liver function studies Social History Tobacco Use Types Packs/Day Years Used Date Smoking Tobacco: Never Assessed Comments Unknown Sex and Gender Information Value Date Recorded Sex Assigned at Not on file Legal Sex Female 1:59 PM PARTNER MANAGEMENT CONSULTANT Gender Identity Not on file Sexual Orientation Not on file documented as of this encounter Plan of Treatment Not on file documented as of this encounter Visit Diagnoses Diagnosis Disorder of gallbladder Unspecified disorder of gallbladder Urinary tract infection Urinary tract infection, site not specified Abnormal results of liver function studies Nonspecific abnormal results of liver function study documented in this encounter
--- OUTSIDE RECORDS SUMMARY | 2024-07-01 05:50 | XMS_ITS | Encounter Summary ---
Author Organization [facility] Medical Group Address [address] [place] [address] Care Team Providers Care Data Warehousing Specialist Name Role Phone Marquita Yu MD Primary Care Provider Reason for Visit * Reason Comments Abnormal ECG New Patient * Consultation (Routine) - Closed Specialty Diagnoses / Procedures Referred By Contac t Referred To Contact Cardiology Diagnoses Abnormal EKG Chronic cough Essential (primary) hypertension Marquita Yu MD Phone: tel: fax: [facility] Medical [facility] Cardiology [address] [address] [place] [phone] Phone: tel: fax: Referral ID Status Reason Start Date Expiration Date V isits Requested Visits Authorized [id number] Closed Specialty Services Required 07/27/2021 08/26/2022 1 1 Encounter Details Date Type Department Care Team (Late st Contact Info) Description 08/29/2021 11:15 AM CDT Office Visit [facility] Medical [facility] Cardiology [id number], [place] [address] Jose Stanton MD [address] [place] [address] [address] [place] [address] Abnormal EKG (Primary Dx); Essential (primary) hypertension; Pulmonary HTN (CMS/HCC) (HCC); Pulmonary nodule; Chronic cough; History of 2019 novel coronavirus disease (COVID-19) Social History Tobacco Use Types Packs/Day Years Used Date Smoking Tobacco: Never Smokeless Tobacco: Never Comments No Sex and Gender Information Value Date Recorded Sex Assigned at Not on file Legal Sex Female 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 Gender Identity Not on file Sexual Orientation Not on file documented as of this encounter Last Filed Vital Signs Vital Sign Reading Time Taken Comments Blood Pressure 136/70 08/29/2021 11:04 AM CDT Pulse 80 08/29/2021 11:04 AM CDT Temperature - - Respiratory Rate 16 08/29/2021 11:04 AM CDT Oxygen Saturation 98% 08/29/2021 11:04 AM CDT Inhaled Oxygen Concentration - - Weight 71.2 kg (157 lb) 08/29/2021 11:04 AM CDT Height 157.5 cm (5' 2 ) 08/29/2021 11:04 AM CDT Body Mass Index 28.72 08/29/2021 11:04 AM CDT documented in this encounter Progress Notes * Jose Stanton MD - 08/29/2021 11:15 AM CDT Images from the original note were not included. DATE OF VISIT: 08/29/2021 CHIEF COMPLAINT Chief Complaint Patient presents with ??? Abnormal ECG New Patient ASSESSMENT Diagnoses and all orders for this visit: Abnormal EKG (Primary) - Ambulatory referral to Cardiology Essential (primary) hypertension - Ambulatory referral to Cardiology Pulmonary HTN (CMS/HCC) (HCC) Pulmonary nodule Chronic cough - Ambulatory referral to Cardiology History of 2019 novel coronavirus disease (COVID-19) PLAN/RECOMMENDATIONS 1. EKG with LAFB sinus rhythm. Echocardiogram without corroborating wall motion abnormalities. EKG stress test without ischemic EKG changes, hypertensive BP response to exercise. Patient denies exertional chest pain, shortness of breath or limitations. She reports no anginal symptoms, CHF. She has no history of sustained tachyarrhythmia and no symptoms either. Denies near-syncope or syncope. She is not in decompensated heart failure. 2. BP marginally controlled, goal less than 140/90 mm Hg. Monitor BP on routine basis. Call with readings. Continue consistent cardiovascular exercise, weight loss, medication compliance, and low-sodium diet. 3. Lifestyle modification counseling performed. Weight loss, exercise, reduction in caloric intake. 4. Lipids personally reviewed 08/23/21 LDL 102, reasonably controlled with goal LDL<100. Continue lifestyle modification. Continue routine lipid monitoring. No indication for statin therapy at this time. 5. Explained the limitations of treadmill stress EKG study and benefits. No evidence for multivessel CAD and or left main disease. Cannot exclude less significant or nonobstructive disease if patientis asymptomatic in this regard. No further ischemic workup indicated given asymptomatic status. 6. We discussed her EKG and recommendations to monitor at least yearly which can be performed by her PCP. If further changes are noted we will be delighted to assist in her care. If she notes palpitations or more frequent arrhythmias are observed further evaluation with Holter/farm adviser would be indicated. As she is asymptomatic in this regard with only notation of premature atrial contractions on treadmill stress test she can continue to monitor and report concerns. She agreed with above plan of care. All questions answered to her satisfaction. 7. Strongly encouraged her to follow-up with pulmonology for further workup of her incidental notation of pulmonary hypertension and pulmonary nodule. There is no significant valvular heart disease as contribution, history of thromboembolic disease, CHF. SAMREEN possibility as contributed to pulmonary hypertension yet she does not endorse symptoms which corroborate this diagnosis at present. Patient h as already been given referral to pulmonology by her primary care physician which I believe is warranted. -personally reviewed and discussed 12 lead EKG 07/26/2021 from PCP sinus rhythm, sinus arrhythmia poor R-wave progression possible pulmonary disease pattern, LAFB 82 beats per minute [place] interval 173 milliseconds QRS 81 milliseconds QT corrected 412 milliseconds. Over 50% of this visit counseling abnormal EKG, HTN, lipids, medications, lifestyle modification. Follow up in the office as needed. Thank you for allowing me the privilege of participating in the care this very pleasant patient. Please do not hesitate to contact me with any additional questions or concerns. HPI Ashley Strong is a 76 y.o. female with a PMHx of lung nodule, HTN seen in very kind referral by Marquita Yu,* for my opinion regarding abnormal ECG. 08/29/21 [...] nodule. Lifetime nonsmoker, noETOH, no prior CAD, ME, CHF, DVT/PE or edema. Up and down [...] history of SAMREEN as she is aware. MEDICAL HISTORY Past Medical History: Diagnosis Date ??? Hyperlipidemia ??? Hypertension ??? No pertinent past medical history SOCIAL HISTORY reports that she has never smoked. She has never used smokeless tobacco. FAMILY HISTORY family history includes Heart disease in her father and mother; Hypertension in her father and mother. MEDICATIONS HOME MEDICATIONS : calcium carbonate-vitamin D3 1,500 mg (600mg elemental) -800 unit per tablet losartan (COZAAR) 25 mg tablet multivitamin,tx-minerals capsule ALLERGIES No Known Allergies REVIEW OF SYSTEMS [...] not nervous/anxious. Allergic/Immunologic: Negative for environmental allergies. PHYSICAL EXAM Vitals BP 136/70 (BP Location: Right arm, Patient Position: Sitting) Pulse 80 Resp 16 Ht 157.5 cm (5' 2 ) Wt 71.2 kg (157 lb) SpO2 98% BMI 28.72 kg/m?? Weight: 71.2 kg (157 lb) Height: 157.5 cm (5' 2 ) Body mass index is 28.72 kg/m??. Physical Exam Constitutional: General: She is not in acute distress. Appearance: She is well-developed. She is not diaphoretic. HENT: Head: Normocephalic and atraumatic. Right Ear: External ear normal. Left Ear: External ear normal. Nose: Nose normal. Mouth/Throat: Dentition: Normal dentition. Eyes: General: Lids are normal. No scleral icterus. Conjunctiva/sclera: Conjunctivae normal. Neck: Thyroid: No thyromegaly. Vascular: Normal carotid pulses. No carotid bruit, hepatojugular reflux or JVD. Trachea: No tracheal deviation. Cardiovascular: Rate and Rhythm: Normal rate and regular rhythm. Pulses: Normal pulses and intact distal pulses. Heart sounds: Normal heart sounds, S1 [...] Normal range of motion and neck supple. Lymphadenopathy: Cervical: No cervical adenopathy. Skin: General: Skin is warm and dry. Coloration: Skin is not pale. Findings: No ecchymosis, erythema, petechiae or rash. Nails: There is no clubbing. Neurological: Mental Status: She is alert and oriented to person, place, and time. Cranial Nerves: No cranial nerve deficit. Motor: No abnormal muscle tone. Coordination: Coordination normal. Psychiatric: Speech: Speech normal. Behavior: Behavior normal. Behavior is cooperative. Judgment: Judgment normal. LABS AND OTHER DIAGNOSTIC TESTS Results for orders placed or performed in visit on 04/29/21 COVID-19 Coronavirus RNA Nasopharyngeal Specimen: Nasopharyngeal Result Value Ref Range COVID-19 RNA Positive (A) Negative Employeed in healthcare? No status? No Group care resident? No Hospitalized? No Is patient in ICU? No Symptomatic as defined by CDC? Yes I have personally reviewed and analyzed EKG, [...] Hg mild LAD, no aortic stenosis trivial MR -08/23/2021 total cholesterol 180 LDL 102 HDL 57 creatinine 0.80 WJohn Stanton MD, [facility] This note is dictated and transcribed using SaveFans! Direct Software. Greens Cutter variancesmay occur. Despite proofreading, typographical errors may occur. documented in this encounter Plan of Treatment Not on file documented as of this encounter Visit Diagnoses Diagnosis Abnormal EKG- Primary Nonspecific abnormal electrocardiogram (ECG) (EKG) Essential (primary) hypertension Unspecified essential hypertension Pulmonary HTN (HCC) Pulmonary nodule Other diseases of lung, not elsewhere classified Chronic cough Cough History of 2019 novel coronavirus disease (COVID-19) documented in this encounter Historical Medications * This list may reflect changes made after this encounter. multivitamin,tx-m inerals capsule Take by mouth Take 1 tablet by mouth every three days losartan (COZAAR) 25 mg tablet 08/28/2021 calcium carbonate-vitamin D3 1,500 mg (600mg elemental) -800 unit per tablet Take 1 tablet by mouth daily 05/08/2023 added in this encounter Orders Outpatient Referral Count Last Ordered Date Fir st Ordered Date AMB REFERRAL TO CARDIOLOGY 1 08/29/2021 documented in this encounter Additional Health Concerns Infection Onset Date Last Indicated Resolved Time COVID: Recovered Comment:Added based on recent COVID infection. 05/12/2021 07/27/2021 09/09/2021 3:05 AM C DT documented as of this encounter Care Teams Data Warehousing Specialist Relationship Specialty Start Date End Date Marquita Yu MD PCP - General Family Practice 04/28/21 07/05/22 documented as of this encounter
--- OUTSIDE RECORDS SUMMARY | 2024-07-01 05:50 | XMS_ITS | Encounter Summary ---
Author Organization [facility] Address [address] [place] [address] Care Team Providers Care Design Cell Engineer Name Role Phone Marquita Yu MD Primary Care Provider Reason for Referral * Cardiology (Routine) - Closed Specialty Diagnoses / Procedures Referred By Contac t Referred To Contact Diagnoses Palpitations Premature atrial contractions Procedures [facility] Mobile Cardiac Telemetry Event Monitor Jose Stanton MD Phone: tel: fax: [facility] Referral ID Status Reason Start Date Expiration Date Visits Re quested Visits Authorized [id number] Closed 06/28/2022 07/28/2023 1 1 OSITION INSTRUCTOR Reason for Visit * Reason Comments Follow-up 10 mo f/u Hypertension Encounter Details Date Type Department Care Team (Late st Contact Info) Description 06/28/2022 10:45 AM COMPOSITION INSTRUCTOR Office Visit [facility] Cardiology [address] [place] [id number] Jose Stanton MD [address] [facility] [address] [place], [place] [id number] Palpitations (Primary Dx); Essential (primary) hypertension; Premature atrial contractions; Pulmonary HTN (CMS/HCC) (HCC) Social History Tobacco Use Types Packs/Day Years Used Date Smoking Tobacco: Never Smokeless Tobacco: Never Comments No Sex and Gender Information Value Date Recorded Sex Assigned at Not on file Legal Sex Female 1:59 PM COMPOSITION INSTRUCTOR Gender Identity Not on file Sexual Orientation Not on file documented as of this encounter Last Filed Vital Signs Vital Sign Reading Time Taken Comments Blood Pressure 128/54 06/28/2022 10:37 AM COMPOSITION INSTRUCTOR Pulse 84 06/28/2022 10:37 AM COMPOSITION INSTRUCTOR Temperature - - Respiratory Rate - - Oxygen Saturation 97% 06/28/2022 10:37 AM COMPOSITION INSTRUCTOR Inhaled Oxygen Concentration - - Weight 69.9 kg (154 lb) 06/28/2022 10:37 AM COMPOSITION INSTRUCTOR Height 157.5 cm (5' 2 ) 06/28/2022 10:37 AM COMPOSITION INSTRUCTOR Body Mass Index 28.17 06/28/2022 10:37 AM COMPOSITION INSTRUCTOR documented in this encounter Ordered Prescriptions Prescription Sig Dispense Quantity Refills Last Filled Start Date End Date aspirin (Adult Low Dose Aspirin) 81 mg enteric coated tablet Take 1 tablet (81 mg total) by mouth daily 06/28/2022 05/08/2023 documented in this encounter Progress Notes * Jose Stanton MD - 06/28/2022 10:45 AM CST Images from the original note were not included. DATE OF VISIT: 06/28/2022 CHIEF COMPLAINT Chief Complaint Patient presents with Follow-up 10 mo f/u Hypertension ASSESSMENT Diagnoses and all orders for this visit: Palpitations (Primary) - [facility] Mobile Cardiac Telemetry Event Monitor; Future - ECG 12 lead Essential (primary) hypertension Premature atrial contractions - [facility] Mobile Cardiac Telemetry Event Monitor; Future - ECG 12 lead Pulmonary HTN (CMS/HCC) (HCC) Other orders - aspirin (Adult Low Dose Aspirin) 81 mg enteric coated tablet; Take 1 tablet (81 mg total) by mouth daily PLAN/RECOMMENDATIONS Possible isolated atrial fibrillation documented on Kiddify watch tracings personally reviewed. Four other labeled AFib tracings consistent with sinus rhythm with frequent PACs and not atrial fibrillation. Discussed options at length including embolic stroke risk and bleeding risk with systemic antico agulation. CHADS2 Vasc score 4 in which systemic anticoagulation would be warranted. Patient has particular bleeding concerns given colitis history as well as GI bleed as a result. Discussed options for approach we agreed upon 30 day creative assistant to assess PAC burden, atrial fibrillation with r ecommendations to follow. Discussed AV nancy blocking agents, aspirin versus systemic anticoagulation relative risks and benefits. At this time will initiate aspirin 81 mg daily. She is to monitor bleeding as counseled. She verbalized understanding and agreed with plan of care. Recommendations to follow after review of creative assistant results. She will continue to monitor with her Apple watch as well and report any new symptoms or concerns. Will hold off on AV nancy blocking agents for the time being. BP marginally controlled, goal less than 140/90 mm Hg. Monitor BP on routine basis. Call with readings. Continue consistent cardiovascular exercise, weight loss, medication compliance, and low-sodiumdiet. -continue losartan 25 mg daily. Lifestyle modification counseling performed. Weight loss, exercise, reduction in caloric intake. Lipids personally reviewed 08/23/21 LDL 102, reasonably controlled with goal LDL<100. Continue lifestyle modification. Continue routine lipid monitoring. No indication for statin therapy at this time. Twelve lead ECG personally reviewed and discussed sinus rhythm with frequent premature atrial contractions, LAFB, low-voltage QRS, abnormal ECG 92 beats per minute HI interval 170 milliseconds QRS 84milliseconds QT corrected 473 milliseconds. Over 50% of this visit counseling abnormal EKG, HTN, lipids, medications, lifestyle modification. Follow up in the office in 3-4 months or sooner as needed. Thank you for allowing me the privilege of participating in the care this very pleasant patient. Please do not hesitate to contact me with any additional questions or concerns. HPI Ashley Strong is a 77 y.o. female with a PMHx of lung [...] nodule. Lifetime nonsmoker, noETOH, no prior CAD, MS, CHF, DVT/PE or edema. Up and down [...] occ she had AFib. Personal review of Kiddify rhythma data on her phone indicated 5 [...] regimen, more energy feeling better in general. MEDICAL HISTORY Past Medical History: Diagnosis Date [...] in her sister. MEDICATIONS HOME MEDICATIONS : calcium carbonate-vitamin D3 1,500 mg (600mg elemental) -800 unit per tablet losartan (COZAAR) 25 mg tablet mesalamine (APRISO) 0.375 gram 24 hr capsule multivitamin,tx-minerals capsule oxybutynin XL (DITROPAN-XL) 5 mg 24 hr tablet aspirin (Adult Low Dose Aspirin) 81 mg enteric coated tablet ALLERGIES No Known Allergies REVIEW OF [...] and are negative. PHYSICAL EXAM Vitals BP 128/54 (BP Location: Left arm, Patient Position: Sitting) Pulse 84 Ht 157.5 cm (5' 2 ) Wt 69.9 kg (154 lb) SpO2 97% BMI 28.17 kg/m?? Weight: 69.9 kg (154 lb) Height: 157.5 cm (5' 2 ) Body mass index is 28.17 kg/m??. Physical Exam Vitals reviewed. Constitutional: General: She is not in acute distress. Appearance: Normal appearance. She is well-developed. She is not diaphoretic. Comments: Wearing a mask HENT: Head: Normocephalic and atraumatic. Right Ear: [...] HDL 57 creatinine 0.80 WJohn Stanton MD, [facility] This note is dictated and transcribed using Webalo Direct Software. Student Worker variancesmay occur. Despite proofreading, typographical errors may occur. OSITION INSTRUCTOR documented in this encounter Plan of Treatment Not on file documented as of this encounter Procedures Procedure Name Priority Date/Time Associated Diagnosis Comments ECG 12-LEAD Routine 06/28/2022 Palpitations Premature atrial contractions documented in this encounter Results * [facility] Mobile Cardiac Telemetry Event Monitor (07/03/2022 9:01 AM COMPOSITION INSTRUCTOR) Anatomical Region Laterality Modality Other Narrative 08/03/2022 8:41 PM COMPOSITION INSTRUCTOR AMBULATORY WAX SPECIALIST REPORT Patient Name: Ashley Strong Date of : 1945 ?? Requesting Provider: ?? Jose Stanton MD Referring provider: ??Antonio Graves NP Date of interpretation: 08/03/22 Type of monitor : ??30 day monitor Date of the study/Enrollment period: ??07/03/2022 Indication: ??Palpitations Quality of the study: ??Good Interpretation: ??The patient was monitored for 30 days. ??The underlying rhythm was sinus with an average heart rate of 82 beats per minute (range 50-136 BPM). ??Infrequent PVCs occurred with a 1% burden. ??Frequent APCs occurred with a 16% burden. ??There also atrial couplets and brief runs of atrial tachycardia of CO for beats. ??There was no atrial fibrillation, SVT, pauses, heart block or ventricular tachycardia. ??The patient did not submit any rhythm strips for symptoms. Conclusions: Frequent APCs as above, 16% burden No atrial fibrillation No symptoms recorded Voice recognition software was used to complete this document, therefore, analyst sales variances may occur. Emma Mcnamara MD, [facility] 08/03/22 [facility] Cardiology Procedure Note Emma Mcnamara MD - 08/03/2022 AMBULATORY WAX SPECIALIST REPORT Patient Name: Ashley Strong Date of : 1945 Requesting Provider: Jose Stanton MD Referring provider: Antonio Graves NP Date of interpretation: 08/03/22 Type of monitor : 30 day monitor Date of the study/Enrollment period: 07/03/2022 Indication: Palpitations Quality of the study: Good Interpretation: The patient was monitored for 30 days. The underlyingrhythm was sinus with an average heart rate of 82 beats per minute ([id number] BPM). Infrequent PVCs occurred with a 1% burden. Frequent APCsoccurred with a 16% burden. There also atrial couplets and brief runs ofatrial tachycardia of CO for beats. There was no atrial fibrillation,SVT, pauses, heart block or ventricular tachycardia. The patient did notsubmit any rhythm strips for symptoms. Conclusions: Frequent APCs as above, 16% burden No atrial fibrillation No symptoms recorded Voice recognition software was used to complete this document, therefore,analyst sales variances may occur. Emma Mcnamara MD, [facility] 08/03/22 [facility] Cardiology us Jose Stanton MD CV CARDIAC SERVICES PROC EDURES Final Result * ECG 12 lead (06/28/2022) us Jose Stanton MD ECG ORDERABLES Edited R esult - Final documented in this encounter Visit Diagnoses Diagnosis Palpitations- Primary Essential (primary) hypertension Unspecified essential hypertension Premature atrial contractions Supraventricular premature beats Pulmonary HTN (HCC) Palpitations Premature atrial contractions Supraventricular premature beats documented in this encounter Historical Medications * This list may reflect changes made after this encounter. oxybutynin XL (DITROPAN-XL) 5 mg 24 hr tablet Take 1 tablet (5 mg total) by mouth daily 03/27/2022 05/08/2023 mesalamine (APRISO) 0.375 gram 24 hr capsule TAKE 4 CAPSULES BY MOUTH IN THE MORNING 05/30/2022 11/16/2023 added in this encounter Care Teams Design Cell Engineer Relationship Specialty Start Date End Date Marquita Yu MD PCP - General Family Practice 04/28/21 07/05/22 documented as of this encounter
--- OUTSIDE RECORDS SUMMARY | 2024-07-01 05:50 | XMS_ITS | Encounter Summary ---
Author Organization [facility] Address [address] [place] [address] Care Team Providers Care Market Research Associate Name Role Phone Marquita Yu MD Primary Care Provider Reason for Visit * Reason Onset Date Comments Covid-19 Home Monitoring 05/04/2021 daily c all Encounter Details Date Type Department Care Team (Late st Contact Info) Description 05/04/[address] [facility] Accountable Care Organization [address] [place] [address] Janet Montaño MA [address] [facility] [address] [place] [address] Covid-19 Home Monitoring (daily call) Social History Tobacco Use Types Packs/Day Years Used Date Smoking Tobacco: Never Smokeless Tobacco: Never Comments No Sex and Gender Information Value Date Recorded Sex Assigned at Not on file Legal Sex Female 1:59 PM WILL CALL ORDER CLERK Gender Identity Not on file Sexual Orientation Not on file documented as of this encounter Last Filed Vital Signs Vital Sign Reading Time Taken Comments Blood Pressure - - Pulse - - Temperature - - Respiratory Rate - - Oxygen Saturation 95% 05/04/2021 2:23 PM WILL CALL ORDER CLERK Inhaled Oxygen Concentration - - Weight - - Height - - Body Mass Index - - documented in this encounter Miscellaneous Notes * Telephone Encounter - Janet Montaño MA - 05/04/2021 2:28 PM CST COVID-19 Home Monitoring Flowsheet Answers: Temp/Pulse Ox Temp: (no) SpO2: 95 % Symptom Monitoring Are you feeling short of breath today?: No Are you having a cough today?: Yes Cough Details:: Same Are you experiencing weakness today?: No Are you vomiting?: No Are you experiencing diarrhea? : Yes (from abx for the bladder infection) Diarrhea Details:: Better This patient has enrolled in the PHONE ONLY version of COVID-19 Home Monitoring Program. COVID-19 Symptom questionnaire was completed today. Symptoms were addressed to be Mild. Escalation was not needed. Next Program Call Due: 05/05 CALL ORDER CLERK documented in this encounter Plan of Treatment Not on file documented as of this encounter Visit Diagnoses Not on filedocumented in this encounter Additional Health Concerns Infection Onset Date Last Indicated Resolved Time COVID19 04/28/2021 04/28/2021 05/12/2021 3:06 AM WILL CALL ORDER CLERK documented as of this encounter Care Teams Market Research Associate Relationship Specialty Start Date End Date Marquita Yu MD PCP - General Family Practice 04/28/21 07/05/22 documented as of this encounter
--- OUTSIDE RECORDS SUMMARY | 2024-07-01 05:50 | XMS_ITS | Encounter Summary ---
Author Organization [facility] Address [address] [place] [address] Care Team Providers Care Steel Fitter Name Role Phone Marquita Yu MD Primary Care Provider Encounter Details Date Type Department Care Team (Late st Contact Info) Description 07/27/2021 Orders Only [facility] Cardiology [address] [place] [address] ProviderShant MD [address] [place] [id number] Social History Tobacco Use Types Packs/Day Years Used Date Smoking Tobacco: Never Smokeless Tobacco: Never Comments No Sex and Gender Information Value Date Recorded Sex Assigned at Not on file Legal Sex Female 1:59 PM SECURITY SYSTEM ADMINISTRATOR Gender Identity Not on file Sexual Orientation Not on file documented as of this encounter Plan of Treatment Not on file documented as of this encounter Procedures Procedure Name Priority Date/Time Associated Diagnosis Comments CARDIOLOGY DOCUMENT SCAN Routine 07/27/2021 documented in this encounter Results * SCAN - CARDIOLOGY (07/27/2021) Anatomical Region Laterality Modality Other Historical Provider CV CARDIAC SERVICES SHAHIDA VALERIO Final Result documented in this encounter Visit Diagnoses Not on filedocumented in this encounter Additional Health Concerns Infection Onset Date Last Indicated Resolved Time COVID: Recovered Comment:Added based on recent COVID infection. 05/12/2021 07/27/2021 09/09/2021 3:05 AM C DT documented as of this encounter Care Teams Steel Fitter Relationship Specialty Start Date End Date Marquita Yu MD PCP - General Family Practice 04/28/21 07/05/22 documented as of this encounter
--- OUTSIDE RECORDS SUMMARY | 2024-07-01 05:50 | XMS_ITS | Encounter Summary ---
Author Organization [facility] Address [address] [place] [address] Care Team Providers Care Digital Sales Director Name Role Phone Marquita Yu MD Primary Care Provider Reason for Visit * Cardiology (Routine) - Closed Specialty Diagnoses / Procedures Referred By Contac t Referred To Contact Diagnoses Palpitations Premature atrial contractions Procedures [facility] Mobile Cardiac Telemetry Event Monitor Jose Stanton MD Phone: tel: fax: [facility] Referral ID Status Reason Start Date Expiration Date Visits Re quested Visits Authorized [id number] Closed 06/28/2022 07/28/2023 1 1 Encounter Details Date Type Department Care Team (Latest Contact Info) Description 07/03/2022 9:00 AM ENVIRONMENTAL FIELD OFFICE MANAGER Ancillary Procedure [facility] Cardiology [address] [place] [address] Palpitations; Premature atrial contractions Social History Tobacco Use Types Packs/Day Years Used Date Smoking Tobacco: Never Smokeless Tobacco: Never Comments No Sex and Gender Information Value Date Recorded Sex Assigned at Not on file Legal Sex Female 1:59 PM ENVIRONMENTAL FIELD OFFICE MANAGER Gender Identity Not on file Sexual Orientation Not on file documented as of this encounter Plan of Treatment Not on file documented as of this encounter Procedures Procedure Name Priority Date/Time Associated Diagnosis Comments [facility] - MOBILE CARDIAC TELEMETRY EVENT MONITOR Routine 07/03/2022 9:01 AM ENVIRONMENTAL FIELD OFFICE MANAGER Palpitations Premature atrial contractions documented in this encounter Results * [facility] Mobile Cardiac Telemetry Event Monitor (07/03/2022 9:01 AM ENVIRONMENTAL FIELD OFFICE MANAGER) Anatomical Region Laterality Modality Other Narrative 08/03/2022 8:41 PM ENVIRONMENTAL FIELD OFFICE MANAGER AMBULATORY [employer] TEACHER REPORT Patient Name: Ashley Strong Date of [...] was used to complete this document, therefore, mortar mixer operator variances may occur. Emma Mcnamara MD, [facility] 08/03/22 [facility] Cardiology Procedure Note Emma Mcnamara MD - 08/03/2022 AMBULATORY [employer] TEACHER REPORT Patient Name: Ashley Strong Date of [...] heart rate of 82 beats per minute (-229 BPM). Infrequent PVCs occurred with a 1% [...] software was used to complete this document, therefore,mortar mixer operator variances may occur. Emma Mcnamara MD, [facility] 08/03/22 [facility] Cardiology Jose Stanton MD CV CARDIAC SERVICES PROC EDURES Final Result documented in this encounter Visit Diagnoses Diagnosis Palpitations Premature atrial contractions Supraventricular premature beats documented in this encounter Care Teams Digital Sales Director Relationship Specialty Start Date End Date Marquita Yu MD PCP - General Family Practice 04/28/21 07/05/22 documented as of this encounter
--- OUTSIDE RECORDS SUMMARY | 2024-07-01 05:50 | XMS_ITS | Encounter Summary ---
Author Organization [facility] Address [address] [place] [address] Care Team Providers Care Larriman Name Role Phone Marquita Yu MD Primary Care Provider Reason for Visit * Reason Onset Date Comments Covid-19 Home Monitoring 04/30/2021 Enrollm ent Day 1 Encounter Details Date Type Department Care Team (Late st Contact Info) Description 04/30/2021 Telephone [facility] Accountable Care Organization [address] [place] [id number] Graciela Jules LPN [address] [place] [id number] Covid-19 Home Monitoring (Enrollment Day 1) Social History Tobacco Use Types Packs/Day Years Used Date Smoking Tobacco: Never Smokeless Tobacco: Never Comments No Sex and Gender Information Value Date Recorded Sex Assigned at Not on file Legal Sex Female 1:59 PM RAILROAD BRAKEMAN Gender Identity Not on file Sexual Orientation Not on file documented as of this encounter Miscellaneous Notes * Telephone Encounter - Graciela Jules LPN - 04/30/2021 9:12 AM RAILROAD BRAKEMAN COVID Home Monitoring Enrollment - No Response This patient was identified as a candidate for the [facility]/ COVID-19 home monitoring program. The patient was contacted via phone for enrollment in the program, but could not be reached to accept or decline. Next program call due: 05/01 ROAD BRAKEMAN documented in this encounter Plan of Treatment Not on file documented as of this encounter Visit Diagnoses Not on filedocumented in this encounter Additional Health Concerns Infection Onset Date Last Indicated Resolved Time COVID19 04/28/2021 04/28/2021 05/12/2021 3:06 AM RAILROAD BRAKEMAN documented as of this encounter Care Teams Larriman Relationship Specialty Start Date End Date Marquita Yu MD PCP - General Family Practice 04/28/21 07/05/22 documented as of this encounter
--- OUTSIDE RECORDS SUMMARY | 2024-07-01 05:50 | XMS_ITS | Encounter Summary ---
Author Organization [facility] Address [address] [place] [address] Care Team Providers Care Sanitation Associate Name Role Phone Marquita Yu MD Primary Care Provider Encounter Details Date Type Department Care Team (Late st Contact Info) Description 08/16/2021 Orders Only [facility] Cardiology [address] [place] [address] Fish Ortiz MD [address] [place], [place] [id number] Social History Tobacco Use Types Packs/Day Years Used Date Smoking Tobacco: Never Smokeless Tobacco: Never Comments No Sex and Gender Information Value Date Recorded Sex Assigned at Not on file Legal Sex Female 1:59 PM COMMISSION BROKER Gender Identity Not on file Sexual Orientation [...] documented as of this encounter Care Teams Sanitation Associate Relationship Specialty Start Date End Date Marquita Yu MD PCP - General Family Practice 04/28/21 07/05/22 documented as of this encounter
--- OUTSIDE RECORDS SUMMARY | 2024-07-01 05:50 | XMS_ITS | Encounter Summary ---
Author Organization [facility] Address [address] [facility] [address] [place] [address] Care Team Providers Care Sustainability Analyst Name Role Phone Marquita Yu MD Primary Care Provider Reason for Visit * Reason Comments COVID-19 EVALUATION sx onset 04/25/21; co ughing some this week. Son is positive for COVID and he was in her house for 20-30 minutes. She was with grandson for a few hours Sunday night, and he is positive for COVID; vaccinated. Encounter Details Date Type Department Care Team (Late st Contact Info) Description 04/28/2021 2:30 PM SLAB WORKER Office Visit [facility] [address] [place] [address] Chery Law, FINA [address] [place] [address] COVID-19 virus infection; Exposure to confirmed case of COVID-19 Social History Tobacco Use Types Packs/Day Years Used Date Smoking Tobacco: Never Smokeless Tobacco: Never Comments No Sex and Gender Information Value Date Recorded Sex Assigned at Not on file Legal Sex Female 1:59 PM SLAB WORKER Gender Identity Not on file Sexual Orientation Not on file documented as of this encounter Last Filed Vital Signs Vital Sign Reading Time Taken Comments Blood Pressure 134/78 04/28/2021 2:45 PM SLAB WORKER Pulse 85 04/28/2021 2:45 PM SLAB WORKER Temperature 37.2 ??C (99 ??F) 04/28/2021 2:45 PM SLAB WORKER Respiratory Rate 16 04/28/2021 2:45 PM SLAB WORKER Oxygen Saturation 97% 04/28/2021 2:45 PM SLAB WORKER Inhaled Oxygen Concentration - - Weight 72.6 kg (160 lb) 04/28/2021 2:45 PM SLAB WORKER Height 158.8 cm (5' 2.5 ) 04/28/2021 2:45 PM SLAB WORKER Body Mass Index 28.8 04/28/2021 2:45 PM SLAB WORKER documented in this encounter Patient Instructions * Patient Instructions* Chery Law NP - 04/28/2021 2:30 PM SLAB WORKER You have an upper respiratory infection with is viral. It is the common cold. Treatment is supportive over the counter therapy. You may use Tylenol or Motrin for pain or fever. You can use a cough expectorant like Mucinex if you have chest congestion with thick mucus. Benadryl/ Zyrtec can be used to dry up a runny nose, and sudafed can help with nasal congestion. A humidifier may provide some relief. Cold medications like Dayquil and Nyquil can help. Drink plenty of fluids and stay hydrated. Get plenty of rest. Covid testing: If you are NEGATIVE, AND: 1. NO symptoms and NO known/possible exposure: NO need to isolate. 2. NO symptoms and YES known/possible exposure: quarantine for 14 days after last potential exposure. A negative test of a specific day cannot be used to release from quarantine since the patience could become positive during the 14- day period. 3. YES symptoms and NO known/possible exposure: quarantine until without fever for 24 hours AND symptoms improve. 4. YES symptoms and YES known/possible exposure: you must quarantine for 14 days from last known exposure date. A negative test of a specific day cannot be used to release from quarantine since the patient could become positive during the 14 day period. 5. YES symptoms and YES known/possible exposure and HAVE BEEN VACCINATED: you ONLY QUARANTINE untilyou are fever free AND symptoms improve. 6. NO symptoms and YES known/possible exposure and HAVE BEEN VACCINATED: NO RECOMMENDATION FOR QUARANTINE. WORKER documented in this encounter Progress Notes * Chery Law NP - 04/28/2021 2:30 PM CST Images from the original note were not included. Patient ID: Ashley Strong is a 76 y.o. female followed by Marquita Yu MD Patient was wearing the following PPE: mask. MA was wearing the following PPE: mask, gown, gloves and face shield. Provider was wearing the following PPE: mask, gown, gloves and face shield. Chief Complaint Patient presents with ??? COVID-19 EVALUATION sx onset 04/25/21; coughing some this week. Son is positive for COVID and he was in her house for 20-30 minutes. She was with grandson for a few hours Sunday night, and he is positive for COVID; vaccinated. URI This is a new problem. The current episode started in the past 7 days (04/25/2021). The problem has been unchanged. There has been no fever. Associated symptoms include coughing, headaches, rhinorrheaand a sore throat. Pertinent negatives include no abdominal pain, chest pain, congestion, diarrhea,dysuria, ear pain, nausea, neck pain, plugged ear sensation, rash, shortness of breath, sneezing, vomiting or wheezing. She has tried acetaminophen (cough medication) for the symptoms. The treatment provided mild relief. Patient presents to clinic for assessment of Chief Complaint Patient presents with ??? COVID-19 EVALUATION sx onset 04/25/21; coughing some this week. Son is positive for COVID and he was in her house for 20-30 minutes. She was with grandson for a few hours Sunday night, and he is positive for COVID; vaccinated. . Patient reports DRY COUGH, NASAL CONGESTION, NASAL DRAINAGE and HEADACHE Patient reports this has been going on for 3 days. Patient with sick or suspected COVID-19 contacts: Yes, son last exposed 04/24/2021 Patient has following risks for COVID-19: Patient age over 65 Patient has been fully vaccinated for Covid-19. Last vaccine 08/2020. Patient is retired Patient lives at home with Review of Systems Constitutional: Positive for fatigue. Negative for appetite change, chills and fever. HENT: Positive for rhinorrhea and sore throat. Negative for congestion, ear pain, postnasal drip, sneezing and trouble swallowing. Eyes: Negative for pain, discharge, redness and itching. Respiratory: Positive for cough. Negative for chest tightness, shortness of breath and wheezing. Cardiovascular: Negative for chest pain and leg swelling. Gastrointestinal: Negative for abdominal pain, constipation, diarrhea, nausea and vomiting. Genitourinary: Negative for difficulty urinating, dysuria, frequency and urgency. Musculoskeletal: Negative for back pain, myalgias and neck pain. Skin: Negative for rash and wound. Allergic/Immunologic: Negative for environmental allergies and food allergies. Neurological: Positive for headaches. Negative for dizziness and weakness. No current outpatient medications on file. No current facility-administered medications for this visit. Past Medical History: Diagnosis Date ??? No pertinent past medical history Immunization History Administered Date(s) Administered ??? Pfizer SARS-CoV-2 Vaccination (12+ yrs) 08/10/2020, 08/31/2020 Social History Tobacco Use Smoking Status Never Smoker Smokeless Tobacco Never Used Vitals: 04/28/21 1445 BP: 134/78 BP Location: Right arm Patient Position: Sitting Pulse: 85 Resp: 16 Temp: 37.2 ??C (99 ??F) TempSrc: Oral SpO2: 97% Weight: 72.6 kg (160 lb) Height: 158.8 cm (5' 2.5 ) Physical Exam Vitals and nursing note reviewed. Constitutional: General: She is awake. Appearance: Normal appearance. She is well-developed, well-groomed and normal weight. HENT: Head: Normocephalic and atraumatic. Right Ear: Tympanic membrane and external ear normal. Left Ear: Tympanic membrane and external ear normal. Nose: Nose normal. Mouth/Throat: Lips: [place]. Mouth: Mucous membranes are moist. Pharynx: Oropharynx is clear. Eyes: General: Lids are normal. Conjunctiva/sclera: Conjunctivae normal. Pupils: Pupils are equal, round, and reactive to light. Cardiovascular: Rate and Rhythm: Normal rate and regular rhythm. Pulmonary: Effort: Pulmonary effort is normal. Breath sounds: Normal breath sounds. No wheezing. Abdominal: General: Bowel sounds are normal. Palpations: Abdomen is soft. Musculoskeletal: General: Normal range of motion. Cervical back: Normal range of motion and neck supple. Lymphadenopathy: Head: Right side of head: No tonsillar adenopathy. Left side of head: No tonsillar adenopathy. Skin: General: Skin is warm and dry. Capillary Refill: Capillary refill takes less than 2 seconds. Neurological: Mental Status: She is alert and oriented to person, place, and time. Psychiatric: Behavior: Behavior normal. Behavior is cooperative. Assessment/Plan Diagnoses and all orders for this visit: COVID-19 virus infection - COVID-19 POC - COVID-19 Coronavirus RNA Nasopharyngeal; Future Exposure to confirmed case of COVID-19 - COVID-19 POC - COVID-19 Coronavirus RNA Nasopharyngeal; Future -PCR positive for covid infection, mAb therapy ordered for [facility] per patient request. Results for orders placed or performed in visit on 04/28/21 COVID-19 POC Result Value Ref Range COVID-19 Ag POC (BD Veritor) Presumptive Negative Presumptive Negative, Invalid You have an upper respiratory infection with is viral. It is the common cold. Treatment is supportive over the counter therapy. You may use Tylenol or Motrin for pain or fever. You can use a cough expectorant like Mucinex if you have chest congestion with thick mucus. Benadryl/ Zyrtec can be used to dry up a runny nose, and sudafed can help with nasal congestion. A humidifier may provide some relief. Cold medications like Dayquil and Nyquil can help. Drink plenty of fluids and stay hydrated. Get plenty of rest. Covid testing: If you are NEGATIVE, AND: 1. NO symptoms and NO known/possible exposure: NO need to isolate. 2. NO symptoms and YES known/possible exposure: quarantine for 14 days after last potential exposure. A negative test of a specific day cannot be used to release from quarantine since the patience could become positive during the 14- day period. 3. YES symptoms and NO known/possible exposure: quarantine until without fever for 24 hours AND symptoms improve. 4. YES symptoms and YES known/possible exposure: you must quarantine for 14 days from last known exposure date. A negative test of a specific day cannot be used to release from quarantine since the patient could become positive during the 14 day period. 5. YES symptoms and YES known/possible exposure and HAVE BEEN VACCINATED: you ONLY QUARANTINE untilyou are fever free AND symptoms improve. 6. NO symptoms and YES known/possible exposure and HAVE BEEN VACCINATED: NO RECOMMENDATION FOR QUARANTINE. Discussed COVID testing reasoning Discussed symptomatic relief of symptoms Discussed need to return to ER for further evaluation including worsening fevers, shortness of breath, of other concerning symptoms Advised to rest and stay adequately hydrated Orders Placed This Encounter Procedures ??? COVID-19 Coronavirus RNA Nasopharyngeal Standing Status: Future Number of Occurrences: 1 Standing Expiration Date: 04/28/2022 Order Specific Question: Is the patient experiencing any symptoms consistent with COVID (eg. Fever,cough, shortness of breath)? Answer: Yes Order Specific Question: What is the reason for testing? Answer: Symptoms of COVID-19 in high-risk group Order Specific Question: Date of Symptom Onset Answer: 04/25/2021 Order Specific Question: Is the patient hospitalized? Answer: No Order Specific Question: Is the patient admitted to an ICU? Answer: No Order Specific Question: Does the patient currently work in a healthcare facility with direct patient contact? Answer: No Order Specific Question: Is the patient a resident of a congregate care or living setting? Answer: No Order Specific Question: ? Answer: No ??? COVID-19 POC Order Specific Question: Is the Patient experiencing symptoms consistent with COVID? Answer: Yes Order Specific Question: Date of Symptom Onset Answer: 04/25/2021 Order Specific Question: Is the patient hospitalized? Answer: No Order Specific Question: Is the patient admitted to an ICU? Answer: No Order Specific Question: Is this the first COVID-19 test for this patient? Answer: No Order Specific Question: Does the patient currently work in a healthcare facility with direct patient contact? Answer: No Order Specific Question: Is the patient a resident of a congregate care or living setting? Answer: No Order Specific Question: ? Answer: No Chery Law NP WORKER WORKER documented in this encounter Miscellaneous Notes * Addendum Note - Chery Law NP - 04/28/2021 2:30 PM CSTAddended by: CHERY LAW on: 04/30/2021 10:28 AM Modules accepted: Level of Service WORKER documented in this encounter Plan of Treatment Not on file documented as of this encounter Procedures Procedure Name Priority Date/Time Associated Diagnosis Comments COVID-19 POC Routine 04/28/2021 3:06 PM SLAB WORKER COVID-19 virus infection Exposure to confirmed case of COVID-19 documented in this encounter Results * (ABNORMAL) COVID-19 Coronavirus RNA Nasopharyngeal (04/28/2021 3:08 PM SLAB WORKER) COVID-19 RNA Positive( A) Negative [facility]ATT Comment: Interpretive data: Synonyms for this test include: PCR and NAAT . ??This test is performed using the NanoVasc Xpert Xpress assay. This is a real-time [...] July 22, 2020. Employeed in healthcare? No [facility] status? No [facility] Group care resident? No [facility] Hospitalized? No [facility] Is patient in ICU? No [facility] Symptomatic as defined by CDC? Yes [facility] Nasopharyngeal 04/28/2021 3: 08 PM SLAB WORKER 04/29/2021 5:56 AM SLAB WORKER Narrative [facility] - 04/29/2021 7:23 AM SLAB WORKER What is the reason for testing?->Symptoms of COVID-19 in high-risk group Date of Symptom Onset->04/25/21 us Chery Law NP LAB MICROBIOLOGY - GENERAL OR DERABLES Final Result [facility] [id number] [address] Department [place] [address] * COVID-19 POC (04/28/2021 3:06 PM SLAB WORKER) COVID-19 Ag POC (BD Veritor) Presumptive Negative Presumptive Negative, Invalid [facility] Nasal 04/28/2021 3:06 PM SLAB WORKER Chery Law SEAMLESS TUBE MILL OPERATOR POINT OF CARE TEST ORDERABLES Final Result [facility] [address] [place] [address] documented in this encounter Visit Diagnoses Diagnosis COVID-19 virus infection Exposure to confirmed case of COVID-19 Viral syndrome Unspecified viral infection, in conditions classified elsewhere and of unspecified site Exposure to confirmed case of COVID-19 documented in this encounter Additional Health Concerns Infection Onset Date Last Indicated Resolved Time COVID: Suspected 04/28/2021 04/28/2021 04/28/2021 3:08 PM SLAB WORKER COVID: Suspected 04/28/2021 04/28/2021 04/29/2021 7:23 AM SLAB WORKER COVID19 04/28/2021 04/28/2021 05/12/2021 3:06 AM SLAB WORKER documented as of this encounter Care Teams Sustainability Analyst Relationship Specialty Start Date End Date Marqutia Yu MD PCP - General Family Practice 04/28/21 07/05/22 documented as of this encounter
--- OUTSIDE RECORDS SUMMARY | 2024-07-01 05:50 | XMS_ITS | Encounter Summary ---
Author Organization [facility] Healthcare Address [address] [place] [address] Care Team Providers Care Health Professor Name Role Phone Unavailable Primary Care Provider Unavailabl e Encounter Details Date Type Department Care Team (Late st Contact Info) Description 02/08/2010 12:01 AM CDT - 02/08/2010 11:59 PM CDT Hospital Encounter [facility] Jaiden Okeefe MD [address] [address] Calculus of gallbladder Social History Tobacco Use Types Packs/Day Years Used Date Smoking Tobacco: Never Assessed Comments Unknown Sex and Gender Information Value Date Recorded Sex Assigned at Not on file Legal Sex Female 1:59 PM TELEPHONE ORDER CLERK ROOM SERVICE Gender Identity Not on file Sexual Orientation Not on file documented as of this encounter Plan of Treatment Not on file documented as of this encounter Visit Diagnoses Diagnosis Calculus of gallbladder Calculus of gallbladder without mention of cholecystitis or obstruction documented in this encounter
--- OUTSIDE RECORDS SUMMARY | 2024-07-01 05:50 | XMS_ITS | Encounter Summary ---
Author Organization [facility] Address [address] [facility] [address] [place] [address] Care Team Providers Care Registered Midwife Name Role Phone Eda Graves NP Primary Care Provider [phone] Encounter Details Date Type Department Care Team (Late st Contact Info) Description 08/07/2022 Telephone [facility] Cardiology [address] [facility] [address] [place] [address] Jose Stanton MD [address] [address] [place] [address] Social History Tobacco Use Types Packs/Day Years Used Date Smoking Tobacco: Never Smokeless Tobacco: Never Comments No Sex and Gender Information Value Date Recorded Sex Assigned at Not on file Legal Sex Female 1:59 PM SENIOR CLINICAL DATA COORDINATOR Gender Identity Not on file Sexual Orientation Not on file documented as of this encounter Ordered Prescriptions Prescription Sig Dispense Quantity Refills Last Filled Start Date End Date metoprolol XL (TOPROL-XL) 25 mg extended release tablet Take 1 tablet (25 mg total) by mouth daily 30 tablet 11 08/07/2022 11/23/2022 documented in this encounter Miscellaneous Notes * Telephone Encounter - Elizabeth Bailey RN - 08/07/2022 8:06 AM CST Note below reviewed in detail with pt. Rx sent in to [facility] as requested. OR CLINICAL DATA COORDINATOR * Telephone Encounter - Elizabeth Bailey RN - 08/07/2022 8:04 AM CST ----- Message from Jose Stanton MD sent at 08/04/2022 6:25 PM SENIOR CLINICAL DATA COORDINATOR ----- No atrial fibrillation noted with underlying sinus rhythm. Frequent premature atrial contractions with 16% burden. Brief runs of atrial tachycardia also observed. I would recommend initiation of low-dose Toprol XL 25 mg daily if she agrees. Monitor fatigue, bradycardia, dizziness. Report tolerance. OR CLINICAL DATA COORDINATOR documented in this encounter Plan of Treatment Not on file documented as of this encounter Visit Diagnoses Not on filedocumented in this encounter Care Teams Registered Midwife Relationship Specialty Start Date End Date Eda Graves NP PCP - General Family Medicine 07/06/22 05/07/23 documented as of this encounter
--- OUTSIDE RECORDS SUMMARY | 2024-07-01 05:50 | XMS_ITS | Encounter Summary ---
Author Organization [facility] Address [address] [facility] [address] [place] [address] Care Team Providers Care Farmworkers Name Role Phone Marquita Yu MD Primary Care Provider Reason for Visit * Reason Onset Date Comments Covid-19 Home Monitoring 05/05/2021 daily c all Encounter Details Date Type Department Care Team (Late st Contact Info) Description 05/05/2021 Telephone [facility] Accountable Care Organization [address] [place] [address] Janet Montaño MA [address] [place] [address] [address] [place] [address] Covid-19 Home Monitoring (daily call) Social History Tobacco Use Types Packs/Day Years Used Date Smoking Tobacco: Never Smokeless Tobacco: Never Comments No Sex and Gender Information Value Date Recorded Sex Assigned at Not on file Legal Sex Female 1:59 PM ARSON AND BOMB INVESTIGATOR Gender Identity Not on file Sexual Orientation Not on file documented as of this encounter Miscellaneous Notes * Telephone Encounter - Janet Montaño MA - 05/05/2021 1:25 PM CST COVID-19 Home Monitoring Flowsheet Answers: Temp/Pulse Ox Temp: (no) Symptom Monitoring Are you feeling short of [...] was not needed. Next Program Call Due: 05/06 N AND BOMB INVESTIGATOR documented in this encounter Plan of Treatment Not on file documented as of this encounter Visit Diagnoses Not on filedocumented in this encounter Additional Health Concerns Infection Onset Date Last Indicated Resolved Time COVID19 04/28/2021 04/28/2021 05/12/2021 3:06 AM ARSON AND BOMB INVESTIGATOR documented as of this encounter Care Teams Farmworkers Relationship Specialty Start Date End Date Marquita Yu MD PCP - General Family Practice 04/28/21 07/05/22 documented as of this encounter
--- OUTSIDE RECORDS SUMMARY | 2024-07-01 05:50 | XMS_ITS | Encounter Summary ---
Author Organization [facility] Address [address] [place] [address] Care Team Providers Care Account Officer Name Role Phone Eda Graves NP Primary Care Provider [phone] Reason for Referral * Cardiology (Routine) - Closed Specialty Diagnoses / Procedures Referred By Contac t Referred To Contact Diagnoses PAT (paroxysmal atrial tachycardia) (HCC) Premature atrial contractions Procedures 48 HR Holter Monitor [place] EXTERNAL ECG SCANNING ANALYSIS REPORT [place] XTRNL ECG & 48 HR RECORDING Jose Stanton MD Phone: tel: fax: [facility] Referral ID Status Reason Start Date Expiration Date Visits Re quested Visits Authorized [id number] Closed 10/31/2022 11/30/2023 1 1 Reason for Visit * Reason Comments Follow-up Palpitations Encounter Details Date Type Department Care Team (Latest Contact Info) Description 10/31/2022 11:15 AM CDT Office Visit [facility] Cardiology [address] [place] [address] [place] [address] [place] [address] [place] [address] [id number] Premature atrial contractions (Primary Dx); PAT (paroxysmal atrial tachycardia) (CMS/HCC) (HCC); Essential (primary) hypertension; Pulmonary HTN (HCC); Mixed hyperlipidemia Social History Tobacco Use Types Packs/Day Years Used Date Smoking Tobacco: Never Smokeless Tobacco: Never Tobacco Cessation:Counseling Given: Not Answered Comments No Sex and Gender Information Value Date Recorded Sex Assigned at Not on file 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 Gender Identity Not on file Sexual Orientation Not on file documented as of this encounter Last Filed Vital Signs Vital Sign Reading Time Taken Comments Blood Pressure 124/70 10/31/2022 11:18 AM CDT Pulse 71 10/31/2022 11:18 AM CDT Temperature - - Respiratory Rate - - Oxygen Saturation 95% 10/31/2022 11:18 AM CDT Inhaled Oxygen Concentration - - Weight 70.8 kg (156 lb) 10/31/2022 11:18 AM CDT Height 157.5 cm (5' 2 ) 10/31/2022 11:18 AM CDT Body Mass Index 28.53 10/31/2022 11:18 AM CDT documented in this encounter Progress Notes * Jose Stanton MD - 10/31/2022 11:15 AM CDT Images from the original note were not included. DATE OF VISIT: 10/31/2022 CHIEF COMPLAINT Chief Complaint Patient presents with Follow-up Palpitations ASSESSMENT Diagnoses and all orders for this visit: Premature atrial contractions (Primary) - 48 HR Holter Monitor; Future PAT (paroxysmal atrial tachycardia) (CMS/HCC) (HCC) - 48 HR Holter Monitor; Future Essential (primary) hypertension Pulmonary HTN (HCC) Mixed hyperlipidemia - POCT lipid panel PLAN/RECOMMENDATIONS Possible isolated atrial fibrillation documented on Apple watch tracings personally reviewed but noother subsequent recurrence or clear documentation. CHADS2 Vasc score 4 in which systemic anticoagulation would be warranted. -personally reviewed and discussed 30 day equipment monitor phototypesetting 07/2022 no AFib, brief PAT, but frequentPAC burden 16%. Tolerating Toprol XL 25mg daily thus far. Discussed approach management for PAC andPAT as well including inc to 50mg daily if burden remains >10%. Repeat 24 Hour Holter to document PAC burden and response to therapy. She agrees. Recommendations to follow. If PAC burden remains excessive and or with PAT/SVT discussed increase to 50 mg Toprol-XL. -she may hold off on aspirin at this time given concern for colitis potential bleeding risk unlikely cleared documented atrial fibrillation thus far. BP marginally controlled, goal less than 140/90 mm Hg. Monitor BP on routine basis. Call with readings. Continue consistent cardiovascular exercise, weight loss, medication compliance, and low-sodiumdiet. -continue Losartan 25 mg daily and Toprol XL 25mg daily. Lifestyle modification counseling performed. Weight loss, exercise, reduction in caloric intake. Lipids personally reviewed 10/31/22 LDL 125, not ideally controlled with goal LDL<100. Continue lifestyle modification. Continue routine lipid monitoring. No indication for statin therapy at this time. She says she will not consider statins even if recommended in the future. Continue management for colitis. She remains on mesalamine. Over 50% of this visit counseling abnormal EKG, HTN, lipids, medications, lifestyle modification. Follow up in the office in 6 months or sooner as needed. Thank you for allowing me the privilege of participating in the care this very pleasant patient. Please do not hesitate to contact me with any additional questions or concerns. HPI Ashley Strong is a 77 y.o. female with a PMHx of lung nodule, HTN seen in very kind referral by Eda Graves [...] nodule. Lifetime nonsmoker, noETOH, no prior CAD, GA, CHF, DVT/PE or edema. Up and down [...] Watch has notalerted her to recurrent arrhythmias. MEDICAL HISTORY Past Medical History: Diagnosis Date [...] gram 24 hr capsule metoprolol XL (TOPROL-XL) 25 mg extended release tablet multivitamin,tx-minerals capsule oxybutynin XL (DITROPAN-XL) 5 mg 24 hr tablet aspirin (Adult Low Dose Aspirin) 81 mg enteric coated tablet calcium carbonate-vitamin D3 1,500 mg (600mg elemental) -800 unit per tablet ALLERGIES No Known Allergies REVIEW OF [...] and are negative. PHYSICAL EXAM Vitals BP 124/70 (BP Location: Left arm, Patient Position: Sitting) Pulse 71 Ht 157.5 cm (5' 2 ) Wt 70.8 kg (156 lb) SpO2 95% BMI 28.53 kg/m?? Weight: 70.8 kg (156 lb) Height: 157.5 cm (5' 2 ) Body mass index is 28.53 kg/m??. Physical Exam Vitals reviewed. Constitutional: General: [...] Cholesterol Total, POC 207 mg/dL 08/03/22 AMBULATORY BI ARCHITECT REPORT Type of monitor : 30 day [...] mild LAD, no aortic stenosis trivial MR Leonel Emre Stanton MD, [facility] This note is dictated and transcribed using [employer] Direct Software. Belt Measurer variancesmay occur. Despite proofreading, typographical errors may occur. documented in this encounter Plan of Treatment Not on file documented as of this encounter Procedures Procedure Name Priority Date/Time Associated Diagnosis Comments POCT LIPID PANEL Routine 10/31/2022 11:2 3 AM CDT Mixed hyperlipidemia documented in this encounter Results * 48 HR Holter Monitor (11/06/2022 11:56 AM CDT) Anatomical Region Laterality Modality Other Narrative 11/16/2022 4:36 PM CDT AMBULATORY BI ARCHITECT REPORT Patient Name: Ashley Strong Date of [...] was used to complete this document, therefore, nurse prn variances may occur. Fish Ortiz MD, [facility] 11/16/22 Procedure Note Fish Ortiz MD - 11/16/2022 AMBULATORY BI ARCHITECT REPORT Patient Name: Ashley Strong Date of [...] software was used to complete this document, therefore,nurse prn variances may occur. Fish Ortiz MD, [facility] 11/16/22 Jose Stanton MD [facility] CARDIAC SERVICES PROC EDURES Final Result * POCT lipid panel (10/31/2022 11:23 AM CDT) Cholesterol, POC 207 mg/dL HDL, POC 46 mg/dL Triglycerides, POC 179 mg/dL LDL Cholesterol POC 125 mg/dL Chol/HDL Ratio, POC 2.7 Non-HDL Cholesterol, POC 161 mg/dL Cholesterol Total, POC 207 mg/dL Capillary blood 10/31/2022 1 1:23 AM CDT us Jose Stanton MD POINT OF CARE TEST ORDER NEL Final Result documented in this encounter Visit Diagnoses Diagnosis Premature atrial contractions- Primary Supraventricular premature beats PAT (paroxysmal atrial tachycardia) (HCC) Paroxysmal supraventricular tachycardia Essential (primary) hypertension Unspecified essential hypertension Pulmonary HTN (HCC) Mixed hyperlipidemia PAT (paroxysmal atrial tachycardia) (HCC) Paroxysmal supraventricular tachycardia Premature atrial contractions Supraventricular premature beats documented in this encounter Care Teams Account Officer Relationship Specialty Start Date End Date Eda Graves NP PCP - General Family Medicine 07/06/22 05/07/23 documented as of this encounter
== END 2024-06-24 10:32 | disposition home or self-care (01) ==
PROVIDERS: PCP Family Medicine; Visit Provider Family Medicine
DX: Z12.31 Encounter for screening mammogram for malignant neoplasm of breast (principal)
CPT/HCPCS: 77063; 77067

== ENCOUNTER 2024-08-14 15:43 | Outpatient (CLI) | payer MEDICARE, SELFPAY | END 2024-08-14 15:44 | disposition home or self-care (01) | LOC: GOSHIMG 15:45 | PROVIDERS: PCP Orthopaedic Surgery; Visit Provider Family Medicine | DX: M19.012 Primary osteoarthritis, left shoulder (principal) | CPT/HCPCS: 73030 ==

== ENCOUNTER 2024-08-19 00:34 | Day surgery (SDC) | payer MEDICARE, SELFPAY ==
[2024-08-06 11:06] VITALS: BMI 29.2
[2024-08-19 07:40] VITALS: BP 143/85; PULSE 93; RESP 16; TEMP 36; O2SAT 99
--- NOTE | 2024-08-19 07:46 | WPDANESEPPF ---
Anes - Initial Pre Proc Eval Procedure: Operation Date: 08/19/24 08:30 Proposed Procedures p Colonoscopy - Manolo Ryan MD Date/Time: 08/19/24 07:46 Surgeon: Manolo Ryan MD Pre Op Diagnosis: Ulcerative colitis w/o complications Patient Data Age: 79 Gender: F Height: 1.57 m Weight: 72 kg Last Vital Signs Temp 36.0 C L 08/19/24 07:40 Pulse 93 08/19/24 07:40 Resp 16 08/19/24 07:40 BP 143/85 H 08/19/24 07:40 Pulse Ox 99 08/19/24 07:40 O2 Del Method Room Air 08/19/24 07:40 Allergies Allergy/AdvReac Type Severity Reaction Status Date / Time No Known Allergies Allergy Verified 08/19/24 07:39 Home Medications ?Medication ?Instructions ?Recorded ?Confirmed ?Type multivitamin with iron 1 tablet PO DAILY 01/03/22 08/19/24 History losartan 25 mg tablet 25 mg PO DAILY #90 tabs 02/13/24 08/19/24 Rx upadacitinib 45 mg tablet,extended 15 mg (0.3333 x 45 mg) PO DAILY 05/02/24 08/19/24 Rx release 24 hr (Rinvoq) #90 tabs oxybutynin chloride 5 mg tablet 5 mg PO DAILY #90 tabs 07/28/24 08/19/24 Rx methylprednisolone 4 mg tablets in See Rx Instructions PO PER PKG DIR 08/05/24 08/19/24 Rx a dose pack (Medrol (Iván)) #21 ea metoprolol succinate 50 mg 50 mg PO DAILY #90 tabs 08/05/24 08/19/24 Rx tablet,extended release 24 hr Patient hx anesthesia problems: none Family hx anesthesia problems: none Results Review: All pre-operative results and documents have been reviewed as part of the pre-operative evaluation. [facility] Past Medical History Medical History Mild pulmonary hypertension Paroxysmal atrial tachycardia Prolapse of bladder Umbilical hernia Esophageal ring Ulcerative colitis SANTOS (iron deficiency anemia) Chronic constipation Diverticula of intestine SANTOS (iron deficiency anemia) Osteopenia OAB (overactive bladder) Essential hypertension Hyperlipidemia Osteoarthritis Surgical History Surgical History History of bladder surgery History of cholecystectomy (Unknown) H/O: hysterectomy (~1994) Family History Family History Father Hypertension Family history of chronic obstructive pulmonary disease Mother Hypertension Family history of diabetes mellitus in first degree relative Sibling Hypertension Cerebrovascular accident COPD (chronic obstructive pulmonary disease) Heart disease Afib Social History Social History Social History: Ashley is and lives in [place], they have 3 children-6 grandchildren-3 great-grandchildren. 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 Caffeine- soda Smoking status: Never smoker Alcohol intake: never Substance use: never Substance use type: does not use Lack of Transportation: No Lack of Food: Never True Current Housing: I Have Housing Concerned About Future Housing: No Difficulty Paying Gas/Electric Bills: No Difficulty Paying for Meds: No Currently Unemployed: No Education: Bachelor's Degree Difficulty w/ Childcare or Family Care: No Living arrangements: with family Occupation/Education: retired Gender identity (if verbalized by the patient): Female Sexual Orientation (if Verbalized by the Patient): Straight or Heterosexual Spiritual care concerns: No Anes - Eval Final PreProcedure Day of Procedure 08/19/24 07:46 Patient weight: overweight Heart: regular rate and rhythm Lungs: clear to auscultation Airway: Mallampati scale class II Neurological: alert and oriented Last oral intake: >/= 8 hours ASA classification: II Emergent: no Anesthetic plan: proceed Anesthesia type and monitoring: general GIVS and standard monitoring Results Review: All pre-operative results and documents have been reviewed as part of the pre-operative evaluation. Informed Consent: The patient's anesthetic plan and its attendant risks and benefits were discussed with the patient/family/POA. Questions were solicited and answers provided to the satisfaction of the patient/family/POA.
[2024-08-19] MEDS: LACTATED RINGERS 1,000 ML 150 ML IV CONT (07:51)
--- NOTE | 2024-08-19 08:20 | PM.HPGS ---
History of Present Illness History of Present Illness Consent: Risks, benefits, and alternatives have been discussed and questions answered. Patient agrees to proceed with procedure. Chief complaint: Ulcerative colitis w/o complications Narrative: Ashley Strong is a 79 year old female diagnosed with UC 05/2022 after presented with rectal bleeding, abdominal pain and SANTOS (affecting left side, sparing most of right colon but also involving cecum) started on mesalamine. Now on Rinvoq 15 mg daily and doing great, no more issues. Last colonoscopy 2023 still with active left sided colitis Review of Systems Review of Systems: All systems reviewed & are unremarkable except as noted in HPI and below PMFSH Past Medical History Medical History (Updated 08/19/24 @ 08:21 by Manolo Ryan MD) Left sided colitis Mild pulmonary hypertension Paroxysmal atrial tachycardia Prolapse of bladder Umbilical hernia Esophageal ring Ulcerative colitis SANTOS (iron deficiency anemia) Chronic constipation Diverticula of intestine SANTOS (iron deficiency anemia) Osteopenia OAB (overactive bladder) Essential hypertension Hyperlipidemia Osteoarthritis Surgical History Surgical History History of bladder surgery History of cholecystectomy (Unknown) H/O: hysterectomy (~1994) Family History Family History Father Hypertension Family history of chronic obstructive pulmonary disease Mother Hypertension Family history of diabetes mellitus in first degree relative Sibling Hypertension Cerebrovascular accident COPD (chronic obstructive pulmonary disease) Heart disease Afib Social History Social History Social History: Ashley is and lives in [place], they have 3 children-6 grandchildren-3 great-grandchildren. 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 Caffeine- soda Smoking status: Never smoker Alcohol intake: never Substance use: never Substance use type: does not use Lack of Transportation: No Lack of Food: Never True Current Housing: I Have Housing Concerned About Future Housing: No Difficulty Paying Gas/Electric Bills: No Difficulty Paying for Meds: No Currently Unemployed: No Education: Bachelor's Degree Difficulty w/ Childcare or Family Care: No Living arrangements: with family Occupation/Education: retired Gender identity (if verbalized by the patient): Female Sexual Orientation (if Verbalized by the Patient): Straight or Heterosexual Spiritual care concerns: No Meds Home Medications and Allergies Home Medications ?Medication ?Instructions ?Recorded ?Confirmed ?Type multivitamin with iron 1 tablet PO DAILY 01/03/22 08/19/24 History losartan 25 mg tablet 25 mg PO DAILY #90 tabs 02/13/24 08/19/24 Rx upadacitinib 45 mg tablet,extended 15 mg (0.3333 x 45 mg) PO DAILY 05/02/24 08/19/24 Rx release 24 hr (Rinvoq) #90 tabs oxybutynin chloride 5 mg tablet 5 mg PO DAILY #90 tabs 07/28/24 08/19/24 Rx methylprednisolone 4 mg tablets in See Rx Instructions PO PER PKG DIR 08/05/24 08/19/24 Rx a dose pack (Medrol (Iván)) #21 ea metoprolol succinate 50 mg 50 mg PO DAILY #90 tabs 08/05/24 08/19/24 Rx tablet,extended release 24 hr Allergies Allergy/AdvReac Type Severity Reaction Status Date / Time No Known Allergies Allergy Verified 08/19/24 07:39 Vital Signs Vital Signs - 24 hr 08/19/24 07:40 Temperature 96.8 F L Pulse Rate 93 Respiratory Rate 16 Blood Pressure 143/85 H Pulse Oximetry 99 Oxygen Delivery Room Air Exam Const: General: comfortable and no acute distress HENMT: Face/Nose/Sinus: Normal nares present Eyes: General: appearance normal, both eyes and all related structures Neck: Neck: no JVD Resp: Auscultation: clear to auscultation bilaterally Cardio: Rate: regular rate Rhythm: regular rhythm GI: Inspection: non-distended GI Palp: Yes Soft to palpation Skin: General skin exam: normal color Neuro: Speech: normal speech Extrem: General: normal to inspection Psych: Mental Status: mental status grossly normal Assessment and Plan Assessment and plan (1) Left sided colitis: Code(s): K51.50 - Left sided colitis without complications Status: Acute Assessment and Plan: doing great with rinvoq
[2024-08-19 08:33] VITALS: BP 117/62; PULSE 81; RESP 17; O2SAT 95
[2024-08-19 08:43] VITALS: BP 116/68; PULSE 72; RESP 27; O2SAT 97
[2024-08-19 08:53] VITALS: BP 130/70; PULSE 79; RESP 19; O2SAT 97
== END 2024-08-19 09:02 | disposition home or self-care (01) ==
PROVIDERS: PCP Nurse Practitioner Family; Visit Provider Internal Medicine Gastroenterology
PROC: 0DJD8ZZ Inspection of Lower Intestinal Tract, Via Natural or Artificial Opening Endoscopic (ICD-10-PCS; CPT 45378; principal; 2024-08-19 08:30)
DX: K57.30 Diverticulosis of large intestine without perforation or abscess without bleeding (principal); K64.8 Other hemorrhoids; K63.89 Other specified diseases of intestine; I10 Essential (primary) hypertension; E78.5 Hyperlipidemia, unspecified; I27.20 Pulmonary hypertension, unspecified; I47.19 Other supraventricular tachycardia; K59.09 Other constipation; D50.9 Iron deficiency anemia, unspecified; M85.88 Other specified disorders of bone density and structure, other site; N32.81 Overactive bladder; M19.90 Unspecified osteoarthritis, unspecified site; Z98.890 Other specified postprocedural states; Z90.49 Acquired absence of other specified parts of digestive tract; Z87.19 Personal history of other diseases of the digestive system; Z82.49 Family history of ischemic heart disease and other diseases of the circulatory system
CPT/HCPCS: 45380; 88305; J2704; J7120

== ENCOUNTER 2024-10-23 13:44 | Outpatient (CLI) | payer MEDICARE, SELFPAY ==
--- NOTE | ~2024-10-23 | CT_ITS ---
EXAMINATION: CT shoulder LT w con DATE: 10/23/2024 14:57 INDICATION: Left shoulder pain TECHNIQUE: High resolution computed tomography (CT) arthrogram of the left shoulder was performed wit h intra-articular contrast but without intravenous contrast. Details of the joint injection and contr ast mixture have been dictated separately. Additional sagittal and coronal reconstructions were perfo rmed. Automated exposure control and iterative reconstruction technique were employed. The dose-lengt h product was 231.30 mGy-cm. COMPARISON: None FINDINGS: Large full-thickness rotator cuff tear involving all but the anteriormost aspect of the supraspinatus tendon and the entire infraspinatus tendon. The tear margin is retracted 3.5 cm medially to slightly beyond the level of the apex of the humeral head. The subscapularis and teres minor tendons are norm al. The long head of the biceps tendon is intact. No evident labral tear. Glenohumeral cartilage is n ormal. Moderate acromioclavicular osteoarthritis. No pathologically enlarged lymphadenopathy left axi lla, left supraclavicular region, left hilum or visualized portion of the left neck and mediastinum. 8 mm centrally calcified nodule at the lingula consistent with sequela of old granulomatous disease. IMPRESSION: 1. Large full-thickness tear involving the entire infraspinatus tendon and all but the anterior most supraspinatus tendon. Reviewed, dictated and finalized at location A.
--- NOTE | ~2024-10-23 | XR_ITS ---
EXAMINATION: XR fl inj shoulder LT - MR/CT DATE: 10/23/2024 14:57 INDICATION: Left shoulder pain TECHNIQUE: A time-out was performed to verify the patient's name, date of , and procedure to b e performed. The procedure including the risks, benefits, and alternatives was discussed with the pat ient. Risks discussed included bleeding and infection. The patient understood the risks and agreed to proceed. The skin overlying the rotator cuff interval of the left glenohumeral joint was prepped an d draped in usual sterile fashion. Anesthetic was administered with 1% lidocaine subcutaneously. A 22 G needle was advanced under fluoroscopic guidance into the joint. Injectate consisting of 12 mL of a 1:1:1 mixture of with 100 mL Omnipaque-240:1% lidocaine: sterile saline was instilled with intra-a rticular administration confirmed with intermittent fluoroscopy. The needle was removed and the entry site was cleaned and dressed. There were no immediate complications. Fluoroscopy exposure time was 0.2 minutes. The total number of images was 127. Total DAP was 0.505 Gycm^2. FINDINGS: Real-time fluoroscopy demonstrates the needle in the left glenohumeral joint. There is exte nsion of contrast into the subacromial/subdeltoid bursa consistent with a full-thickness rotator cuff tear. IMPRESSION: 1. Successful left glenohumeral joint injection of contrast mixture for subsequent CT arthrogram whic h will be dictated separately. 2. Extensive contrast into the subacromial/subdeltoid bursa consistent with full-thickness rotator cu ff tear. See separate CT arthrogram report for further detail. Reviewed, dictated and finalized at location A. IMPRESSION: 1. Successful left glenohumeral joint injection of contrast mixture for subsequ ent CT arthrogram which will be dictated separately. 2. Extensive contrast into the subacromial/subdeltoid bursa consistent with ful l-thickness rotator cuff tear. See separate CT arthrogram report for further de tail.
--- OUTSIDE RECORDS SUMMARY | 2024-10-23 13:50 | XMS_ITS | Clinical Summary ---
Author Organization [facility] Address [address] [place] [address] Care Team Providers Care Blindstitch Hemmer Name Role Phone Marquita Yu MD Primary Care Provider Source Comments [facility],non-owned Affiliates and Associated Physician Practices is amultiple site organization consisting of ambulatory clinics and hospital sitesin [place], [place], [place] and [place]. This disclosure is being madepursuant to the Care Everywhere program and may not contain all information available regarding this patient. Last updated 18.[employer] [facility] Allergies No known active allergies Medications * Be aware that medications may not be up to date on this document. Alwaysverify current medications with the patient. 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 Gender Identity Not on file Sexual Orientation Not on file Last Filed Vital Signs Vital Sign Reading Time Taken Comments Blood Pressure 166/78 09/21/2018 11:37 AM CDT Pulse 101 09/21/2018 11:30 AM CDT Temperature 37.7 C (99.9 F) 09/21/2018 11:30 AM CDT Respiratory Rate 16 09/21/2018 11:30 AM CDT [...] VACCINE ( - 2023-2 5 season) 2024 DEPRESSION SCREENING 06/18/2024 INFLUENZA VACCINE (Season Ended) 2025 HEPATITIS B VACCINE Aged Out No longe r eligible based on patient's age to complete this topic HIB VACCINE Aged Out No longer eligi ble based on patient's age to complete this topic HPV VACCINE Aged Out No longer eligi ble based on patient's age to complete this topic MENINGOCOCCAL (Group B) VACC INE SHARED DECISION-MAKING Aged Out No longer eligibl e based on patient's age to complete this topic MENINGOCOCCAL GROUPS A/C/Y/W VACCINE Aged Out No longer eligible b ased on patient's age to complete this topic Insurance [facility] Care Address: [address] [address] SELF PAY NO INSURANCE Member Subscriber Plan / Payer (Ef fective for All Dates) Name:Ashley Saini Fredy Member ID:Not on file Relation to Subscriber:Not on file Name:ASHLEY SAINI Fredy Subscriber ID:Not on file (Home) Address: [address] [place] [address] Payer ID:Not on file Group ID:Not on file Type:Self Pay Address: [place], [place] [employer] SELF PAY NO INSURANCE Member Subscriber Plan / Payer (Ef fective for All Dates) Name:Ashley Saini Fredy Member ID:Not on file Relation to Subscriber:Not on file Name:ASHLEY SAINI Subscriber ID:Not on file Address: [address] [place], [place] Payer ID:Not on file Group ID:Not on file Type:Self Pay Address: [place], [place] Care Teams Blindstitch Hemmer Relationship Specialty Start Date End Date Marquita Yu MD [address] [place] [address] PCP - General 06/13/22
--- OUTSIDE RECORDS SUMMARY | 2024-10-23 13:50 | XMS_ITS | Clinical Summary ---
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 Gender Identity Not on file Sexual Orientation Not on file Obstetrics History Last Filed Vital Signs Vital Sign Reading Time Taken Comments Blood Pressure 122/54 07/15/2024 11:18 AM AFTERSCHOOL BABYSITTER Pulse 62 07/15/2024 11:18 AM AFTERSCHOOL BABYSITTER Temperature 37.2 C (99 F) 04/28/2021 2:45 PM AFTERSCHOOL BABYSITTER Respiratory Rate 16 08/29/2021 11:04 AM CDT Oxygen Saturation 96% 07/15/2024 11:18 AM AFTERSCHOOL BABYSITTER Inhaled Oxygen Concentration - - Weight 73.5 kg (162 lb) 07/15/2024 11:18 AM AFTERSCHOOL BABYSITTER Height 157.5 cm (5' 2 ) 07/15/2024 11:18 AM AFTERSCHOOL BABYSITTER Body Mass Index 29.63 07/15/2024 11:18 AM AFTERSCHOOL BABYSITTER Plan of Treatment Health Maintenance Due Date Last Done Comments Depression Screening 1945 Fall Risk Assessment 1945 Hepatitis C Screening 1945 Osteoporosis Screening-Bone Density Scan 1945 DTaP/Tdap/Td Vaccine (1 - Tdap) 1956 Hepatitis B Screening 1963 Pneumococcal vaccine 65+ (1 of 1 - PCV) 1995 Zoster Vaccine (1 of 2) 1995 Well Visit 65+ 2010 Covid-19 Vaccine (3 - 2023-2 5 season) 2024 08/31/2020, 08/10/2020 Influenza Vaccine (#1) 2024 , 05/26/2019, 04/23/2018, Additional history exists Insurance [employer] MEDICARE PPO [employer] MEDIC[employer] PPO Care Teams Accounts Payables Clerk Relationship Specialty Start Date End Date Marquita Yu MD [address] [facility] [address] [address] PCP - General Family Practice 05/08/23
--- OUTSIDE RECORDS SUMMARY | 2024-10-23 13:50 | XMS_ITS | Referral Summary ---
Author Organization [facility] [address] [facility] 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 Gender Identity Not on file Sexual Orientation Not on file Last Filed Vital Signs Vital Sign Reading Time Taken Comments Blood Pressure 122/54 07/15/2024 11:18 AM MANAGER LIGHTING Pulse 62 07/15/2024 11:18 AM MANAGER LIGHTING Temperature 37.2 C (99 F) 04/28/2021 2:45 PM MANAGER LIGHTING Respiratory Rate 16 08/29/2021 11:04 AM CDT Oxygen Saturation 96% 07/15/2024 11:18 AM MANAGER LIGHTING Inhaled Oxygen Concentration - - Weight 73.5 kg (162 lb) 07/15/2024 11:18 AM MANAGER LIGHTING Height 157.5 cm (5' 2 ) 07/15/2024 11:18 AM MANAGER LIGHTING Body Mass Index 29.63 07/15/2024 11:18 AM MANAGER LIGHTING Plan of Treatment Not on file Insurance [employer] MEDICARE PPO [employer] MEDICARE PPO Care Teams Medical Record Coder Relationship Specialty Start Date End Date Marquita Yu MD [address] [facility] [address] [place], [place] [id number] PCP - General Family Practice 05/08/23
== END 2024-10-23 13:45 | disposition home or self-care (01) ==
PROVIDERS: PCP Family Medicine; Visit Provider Orthopaedic Surgery
DX: S46.812A Strain of other muscles, fascia and tendons at shoulder and upper arm level, left arm, initial encounter (principal); X58.XXXA Exposure to other specified factors, initial encounter; M75.82 Other shoulder lesions, left shoulder
CPT/HCPCS: 23350; 73201; Q9966

== ENCOUNTER 2024-11-19 13:03 | Outpatient (CLI) | payer MEDICARE, SELFPAY ==
--- NOTE | ~2024-11-19 | DEXA_ITS ---
Bone Density Report Name: MARY SAINI Age: 79 Sex: Female Ethnicity: White Date of : 1945 Indication: osteopenia; height loss; hysterectomy; Referring Provider: CARROLL BOB Study: Bone densitometry was performed. Exam Date: November 19, 2024 Accession number: [id number] Bone Density: Region BMD T-score Z-score Classification AP Spine(L1-L4) 0.823 -2.0 0.6 Osteopenia Femoral Neck (Left) 0.579 -2.4 -0.1 Osteopenia Total Hip (Left) 0.759 -1.5 0.5 Osteopenia Femoral Neck (Right) 0.575 -2.5 -0.2 Osteoporosis Total Hip (Right) 0.741 -1.6 0.4 Osteopenia Total Hip Mean 0.750 -1.6 0.5 Osteopenia World Health Organization criteria for BMD impression classify patients as: Normal (T-score at or above -1.0), Osteopenia (T-score between -1.0 and -2.5), or Osteoporosis (T-score at or below -2.5). 10-year Fracture Risk: FRAX not reported because: Some T-score for Spine Total or Hip Total or Femoral Neck at or below -2.5 Previous Exams: Region Exam Age BMD T-score BMD Change BMD Change Date g/cm2 vs Baseline vs Previous AP Spine (L1-L4) 11/19/2024 79 0.823 -2.0 -0.028 (-3.2%) -0.028 (-3.2%) 03/22/2022 76 0.850 -1.8 Total Hip(Left) 11/19/2024 79 0.759 -1.5 -0.018 (-2.4%) -0.018 (-2.4%) 03/22/2022 76 0.777 -1.4 Total Hip(Right) 11/19/2024 79 0.741 -1.6 -0.007 (-0.9%) -0.007 (-0.9%) 03/22/2022 76 0.748 -1.6 *Denotes significance at 95% confidence level, LSC for AP Spine = 0.022 g/cm2, LSC for Total Hip = 0.027 g/cm2 Clinical Information Provided by Patient: Has used the following medications: Vitamin D, Calcium Has the following medical conditions: Hysterectomy Patient maximum height was 63 Menopause Age: 48 No regular weight bearing exercise Drinks caffeinated beverages Onset of menses at age 13 Number of children 3 Impression: The patient has osteoporosis, based on the Right Femoral Neck T-score. The BMD for the AP Spine (L1-L4) decreased, changing by -3.2% since the last DXA exam. Discussion: INCREASED RISK OF FRACTURE. BONE DENSITY IS UNDESIRABLY LOW AT ONE OR MORE SKELETAL SITES, CONSISTENT WITH POSTMENOPAUSAL OSTEOPOROSIS. This patient's lowest T-score meets the World Health Organization's (WHO) criteria for osteoporosis at one or more sites (T-score -2.5 or below). In untreated patients, the risk of osteoporotic fracture increases approximately two-fold for each 1.0 SD decrease in T-score. Low bone density is not the only risk factor for fracture; also consider factors such as patient's age, frailty or poor health, risk of falling, risk of injury, previous osteoporotic fracture, family history of osteoporosis, cigarette smoking, low body weight, etc. Not everyone with low bone mineral density has osteoporosis; osteomalacia and other metabolic bone disorders should also be considered. Patients who have osteoporosis should be evaluated for specific diseases and conditions (secondary causes) that may cause or contribute to bone loss. The [place] Association of Clinical Endocrinologists (AACE) and National Osteoporosis Foundation (NOF) recommend pharmacologic intervention for all postmenopausal women whose T-score is in this range. The patient should follow a healthful lifestyle (good nutrition with adequate calcium and vitamin D, and appropriate weight-bearing exercise). Follow-Up: Consider a repeat BMD and Vertebral Fracture Assessment (VFA) exam in 2 years or sooner if medically necessary, to reassess this patient's status. Reported by: CHRISTIANO on 11/19/2024 1:44:00 PM. Reviewed, dictated and finalized at location A.
--- OUTSIDE RECORDS SUMMARY | 2024-11-19 13:06 | XMS_ITS | Clinical Summary ---
Author Organization [facility] Address [address] [place] [address] Care Team Providers Care Cyber Defense Incident Responder Name Role Phone Marquita Yu MD Primary Care Provider Source Comments [facility],non-owned Affiliates and Associated Physician Practices is amultiple site organization consisting of ambulatory clinics and hospital sitesin [place], [place], [place] and [place]. This disclosure is being madepursuant to the Care Everywhere program and may not contain all information available regarding this patient. Last updated 18.[facility] Allergies No known active allergies Medications * Be aware that medications may not be up to date on this document. Alwaysverify current medications with the patient. 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
--- OUTSIDE RECORDS SUMMARY | 2024-11-19 13:06 | XMS_ITS | Referral Summary ---
Author Organization [facility] [address] [facility] lto Address [address] [place] [address] Care Team Providers Care Machine Striper Name Role Phone Marquita Yu MD Primary Care Provider Allergies No known active allergies Medications losartan (COZAAR) 25 mg tablet 2 Active multivitamin,tx -minerals capsule Take by mouth Take 1 tablet by mouth every three days Active upadacitinib (Rinvoq) 45 mg tablet extended release 24 hr Take 15 mg by mouth daily Active oxyBUTYnin (DITROPAN) 5 mg tablet Take 1 tablet (5 mg total) by mouth daily 4 Active metoprolol XL (TOPROL-XL) 50 mg extended release tablet TAKE 1 TABLET BY MOUTH EVERY DAY 90 tablet 1 5 Active metoprolol XL (TOPROL-XL) 50 mg extended release tablet TAKE 1 TABLET BY MOUTH EVERY DAY 90 tablet 3 4 11/13/19 25 Discontinued Active Problems Problem Noted Date Diagnosed Date [...] on file Legal Sex Female 1:59 PM 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 Gender Identity Not on file Sexual Orientation Not on file Last Filed Vital Signs Vital Sign Reading Time Taken Comments Blood Pressure 122/54 07/15/2024 11:18 AM CORPORATE 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 Pulse 62 07/15/2024 11:18 AM CORPORATE 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 Temperature 37.2 C (99 F) 04/28/2021 2:45 PM CORPORATE 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 Respiratory Rate 16 08/29/2021 11:04 AM CDT Oxygen Saturation 96% 07/15/2024 11:18 AM CORPORATE 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 Inhaled Oxygen Concentration - - Weight 73.5 kg (162 lb) 07/15/2024 11:18 AM CORPORATE 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 Height 157.5 cm (5' 2) 07/15/2024 11:18 AM CORPORATE 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 Body Mass Index 29.63 07/15/2024 11:18 AM CORPORATE 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 Plan of Treatment Not on file Insurance [employer] MEDICARE PPO [employer] MEDICARE PPO Care Teams Machine Striper Relationship Specialty Start Date End Date Marquita Yu MD [address] [facility] [place] [address] [place] [address] PCP - General Family Practice 05/08/23
--- OUTSIDE RECORDS SUMMARY | 2024-11-19 13:06 | XMS_ITS | Clinical Summary ---
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 Gender Identity Not on file Sexual Orientation Not on file Obstetrics History Last Filed Vital Signs Vital Sign Reading Time Taken Comments Blood Pressure 122/54 07/15/2024 11:18 AM SALES AND CUSTOMER RELATIONS REP Pulse 62 07/15/2024 11:18 AM SALES AND CUSTOMER RELATIONS REP Temperature 37.2 C (99 F) 04/28/2021 2:45 PM SALES AND CUSTOMER RELATIONS REP Respiratory Rate 16 08/29/2021 11:04 AM CDT Oxygen Saturation 96% 07/15/2024 11:18 AM SALES AND CUSTOMER RELATIONS REP Inhaled Oxygen Concentration - - Weight 73.5 kg (162 lb) 07/15/2024 11:18 AM SALES AND CUSTOMER RELATIONS REP Height 157.5 cm (5' 2) 07/15/2024 11:18 AM SALES AND CUSTOMER RELATIONS REP Body Mass Index 29.63 07/15/2024 11:18 AM SALES AND CUSTOMER RELATIONS REP Plan of Treatment Health Maintenance Due Date [...] 5 season) 2024 08/31/2020, 08/10/2020 Influenza Vaccine (Season Ended) 2025 04/12/2020, 05/26/2019, 04/23/2018, Additional history exists Insurance HUMANA CHOICE MEDICARE PPO HU[employer]NA CHOICE MEDICARE PPO Care Teams Goldsmith Apprentice Relationship Specialty Start Date End Date Marquita Yu MD [address] [facility] [place] [address] [place] [address] PCP - General Family Practice 05/08/23
== END 2024-11-19 13:04 | disposition home or self-care (01) ==
LOC: ANHIMG 13:05
PROVIDERS: PCP Family Medicine; Visit Provider Nurse Practitioner Family
DX: M85.89 Other specified disorders of bone density and structure, multiple sites (principal); M81.0 Age-related osteoporosis without current pathological fracture; N95.1 Menopausal and female climacteric states
CPT/HCPCS: 77080

== ENCOUNTER 2024-12-05 10:28 | Outpatient (CLI) | payer MEDICARE, SELFPAY ==
[2024-12-05 11:10] LABS: Hemoglobin 12.5 g/dL (12.0-15.0)
[2024-12-05 11:23] LABS: Albumin Level 4.4 g/dL (3.5-5.1); Estimated Glomerular Filt Rate > 60; Glucose 117 mg/dL (65-110)
[2024-12-05 11:35] LABS: Hemoglobin A1C 5.4 % (<5.7)
== END 2024-12-05 10:29 | disposition home or self-care (01) ==
LOC: ANHLAB 10:30
PROVIDERS: PCP Family Medicine; Visit Provider Orthopaedic Surgery
DX: R73.03 Prediabetes (principal); E78.2 Mixed hyperlipidemia; D50.9 Iron deficiency anemia, unspecified; M19.019 Primary osteoarthritis, unspecified shoulder
CPT/HCPCS: 36415; 82040; 82565; 82947; 83036; 85014; 85018

== ENCOUNTER 2025-02-17 15:43 | Outpatient (CLI) | payer MEDICARE, SELFPAY ==
--- NOTE | ~2025-02-17 | XR_ITS ---
EXAM/ PROCEDURE: XR shoulder LT min 2V - 02/17/2025 15:55 CDT HISTORY: 79 years old Female with M75.122 - Complete rotator cuff tear or rupture of left s... COMPARISON: None available TECHNIQUE: Four view(s) FINDINGS/ IMPRESSION: There are no fractures or dislocations.Joint space narrowing, subchondral sclerosis, subchondral cyst formation and osteophyte formation, compatible with mild osteoarthritis. Reviewed, dictated and finalized at location N.
--- OUTSIDE RECORDS SUMMARY | 2025-02-17 15:47 | XMS_ITS | Clinical Summary ---
Author Organization [facility] [employer] Address [address] [place] [address] Care Team Providers Care Counter Hand Name Role Phone Marquita Yu MD Primary Care Provider Source Comments [facility] [employer],non-owned Affiliates and Associated Physician Practices is amultiple site organization consisting of ambulatory clinics and hospital sitesin [place], [place], [place] and [place]. This disclosure is being madepursuant to the Care Everywhere program and may not contain all information available regarding this patient. Last updated 18.[employer] Allergies No known active allergies Medications * Be aware that medications may not be up to date on this document. Alwaysverify current medications with the patient. 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
--- OUTSIDE RECORDS SUMMARY | 2025-02-17 15:47 | XMS_ITS | Clinical Summary ---
Author Organization [facility] [address] [facility] lto Address [address] [place] [address] Care Team Providers Care Display Mechanic Name Role Phone Marquita Yu MD [...] mg total) by mouth daily 05/01/2024 Active metoprolol XL (TOPROL-XL) 50 mg extended release tablet TAKE 1 TABLET BY MOUTH EVERY DAY 90 tablet 1 11/12/2024 Active alendronate (FOSAMAX) 70 mg tablet TAKE 1 TABLET BY MOUTH ONCE WEEKLY 11/24/2024 Active Active Problems Problem Noted Date Diagnosed Date PAT (paroxysmal atrial tachycardia) 10/31/2022 Palpitations 06/28/2022 Premature atrial contractions 06/28/2022 Abnormal EKG 08/29/2021 Essential (primary) hypertension 08/29/2021 Pulmonary HTN 08/29/2021 History of 2019 novel coronavirus disease (COVID -19) 08/29/2021 Pulmonary nodule 08/29/2021 Chronic cough 08/29/2021 COVID 05/02/2021 Encounters Date Type Department Care Team Description 12/05/2024 Results Follow-Up [facility] [address] [address] Elvie Lorenz NP Urine culture Urine, clean voided 12/03/2024 7:51 PM CDT - 12/03/2024 11:59 PM CDT Hospital Encounter [address] [address] Dysuria Discharge Disposition: Discharge to home or self care 12/03/2024 7:15 PM CDT Office Visit 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 Gender Identity Not on file Sexual Orientation Not on file Obstetrics History Last Filed Vital Signs Vital Sign Reading Time Taken Comments Blood Pressure 132/84 12/03/2024 7:12 PM CDT Pulse 92 12/03/2024 7:12 PM CDT Temperature 36.6 C (97.9 F) 12/03/2024 7:12 PM CDT Respiratory Rate 22 12/03/2024 7:12 PM CDT Oxygen Saturation 96% 12/03/2024 7:12 PM CDT Inhaled Oxygen Concentration - - Weight 73.6 kg (162 lb 3.2 oz) 12/03/2024 7:12 P M CDT Height 157.5 cm (5' 2) 07/15/2024 11:18 AM DRIVER/REFUSE COLLECTOR Body Mass Index 29.67 07/15/2024 11:18 AM DRIVER/REFUSE COLLECTOR Plan of Treatment Health Maintenance Due Date [...] season) 2024 08/31/2020, 08/10/2020 Influenza Vaccine (#1) 2025 , 05/26/2019, 04/23/2018, Additional history exists Procedures Procedure Name Priority Date/Time Associated Diagnosis Comments POCT URINALYSIS DIPSTICK Routine 12/03/2024 7:49 PM CDT Dysuria URINE CULTURE Routine 12/03/2024 7:09 PM CDT Dysuria from Last 3 Months Results * (ABNORMAL) POCT urinalysis dipstick (12/03/2024 7:49 PM CDT) Color, Urine, POC Yellow Clarity, ur, POC Cloudy(A) Clear Glucose, ur, POC Negative Negative Bilirubin, ur, POC Negative Negative Ketones, ur, POC Negative Negative Specific [place], POC 6.500(A) 1.003 - 1.030 Blood, ur, POC Large(A) Negative pH, ur, POC 6.5 5.0 - 8.0 Protein, ur, POC 300.(A) Negative Urobilinogen, urine, POC 0.2 0.2 - 1.0 mg/dL Nitrite, ur, POC Negative Negative Leukocytes, ur, POC Small(A) Negative Lot Number [id number] Urine 12/03/2024 7:49 PM CDT Elvie Lorenz NP POINT OF CARE TEST ORDERAB LES Final Result * (ABNORMAL) Urine culture Urine, clean voided (12/03/2024 7:09 PM CDT) Report Final Report: Greater than or equal to 100,000 colonies/mL of Escherichia coli Plus growth of clinically insignificant bacterial staci. (.) Comment:Testing performed by : [facility], [address] [place]., [address] Organism ESCHERICHIA COLI MATT Organism PLUS GROWTH OF CLINICALLY INSIGNIFICANT STACI. MATT Urine, clean voided 12/03/2024 7:09 PM CDT 12/04/2024 12:22 AM CDT Narrative MATT - 12/05/2024 3:29 PM CDT Testing performed by [facility] Microbiology Laboratory ([phone]) Organism Antibiotic Method Susceptibility Escherichia coli Ampicillin INTERPRETATION Susceptible Escherichia coli Cefazolin INTERPRETATION Susceptible Escherichia coli Nitrofurantoin INTERPRETATION Susceptible Escherichia coli Gentamicin INTERPRETATION Susceptible Escherichia coli Trimethoprim with Sulfamethoxazole IN TERPRETATION Susceptible Escherichia coli Meropenem INTERPRETATION Susceptible Escherichia coli Cefepime INTERPRETATION Susceptible Escherichia coli Ciprofloxacin INTERPRETATION Susceptible Escherichia coli Ceftazidime INTERPRETATION Susceptible Escherichia coli Ceftriaxone INTERPRETATION Susceptible Escherichia coli Piperacillin/Tazobactam INTERPRETATIO N Susceptible Escherichia coli Cephalexin INTERPRETATION Susceptible Escherichia coli Cefuroxime-axetil INTERPRETATION Susceptible Escherichia coli Cefdinir INTERPRETATION Susceptible Elvie Lorenz NP LAB MICROBIOLOGY - GENERAL ORDERABLES Final Result MATT [id number] [facility] of Laboratories [place], [place] [id number] from Last 3 Months Insurance [employer] CHOICE MEDICARE PPO [employer] CHOICE MEDICARE PPO Care Teams Display Mechanic Relationship Specialty Start Date End Date Marquita Yu MD [address] [facility] [address] [place], [place] [address] PCP - General Family Practice 05/08/23
== END 2025-02-17 15:44 | disposition home or self-care (01) ==
PROVIDERS: PCP Family Medicine; Visit Provider Physician Assistant Surgical
DX: M75.122 Complete rotator cuff tear or rupture of left shoulder, not specified as traumatic (principal)
CPT/HCPCS: 73030

== ENCOUNTER 2025-02-18 13:47 | Outpatient (CLI) | payer MEDICARE, SELFPAY ==
--- NOTE | 2025-02-18 14:32 | ECG_ITS ---
Test Date: 2025-02-18 14:43:44 Measurements Intervals [place] Rate: 63 P: 47 VT: 187 QRS: -43 QRSD: 90 T: 31 QT: 418 QTc: 430 Interpretive Statements SINUS RHYTHM MARKED LEFT AXIS DEVIATION [QRS AXIS < -30] LOW QRS VOLTAGE IN PRECORDIAL LEADS [QRS DEFLECTION < 1.0 mV IN CHEST LEADS] POSSIBLE ANTERIOR MYOCARDIAL INFARCTION [30 ms Q WAVE IN V3/V4, OR R < 0.2 mV IN V4], PROBABLY OLD ABNORMAL ECG No previous ECG available for comparison Electronically Signed On 02-18-2025 15:43:58 CDT by Fish Ortiz M.D.
[2025-02-18 15:06] LABS: Hematocrit 33.8 % (37.0-47.0); Hemoglobin 11.4 g/dL (12.0-15.0); Immature Granulocyte Percent A 0.2 % (0-0.5); Lymphocytes Absolute Auto 1.40 K/mm3 (0.9-3.2); Mean Corpuscular HGB Conc 33.7 g/dl (32-36); Mean Corpuscular Hemoglobin 32.9 pg (26-34); Mean Corpuscular Volume 97.4 fl (80-100); Nucleated Red Blood Cells Absolute Auto 0.000 K/mm3 (0.0-0.012); Nucleated Red Blood Cells Perc 0.0 % (0.0-0.2); Platelet Count Result 284 k/mm3 (150-375); Red Blood Count 3.47 M/mm3 (4.2-5.4); White Blood Count 4.6 K/mm3 (4.5-10.0)
--- OUTSIDE RECORDS SUMMARY | 2025-02-18 15:08 | XMS_ITS | Clinical Summary ---
Author Organization [facility] [place] [address] [facility] lto Address [address] [place] [address] Care Team Providers Care Mail Officer Name Role Phone Marquita Yu MD Primary [...] Department Care Team Description 12/05/2024 Results Follow-Up [facility] at [address] [phone] Elvie Lorenz NP Urine culture Urine, clean voided 12/03/2024 7:51 PM CDT - 12/03/2024 11:59 PM CDT Hospital Encounter [address] [address] Dysuria Discharge Disposition: Discharge to home or self care 12/03/2024 7:15 PM CDT Office Visit [facility] [address] [phone] Elvie Lorenz, FINA Dysuria (Primary Dx) from [...] on file 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 Gender Identity Not on file Sexual Orientation [...] 157.5 cm (5' 2) 07/15/2024 11:18 AM PIPELINE WELDER Body Mass Index 29.67 07/15/2024 11:18 AM PIPELINE WELDER Plan of Treatment Health Maintenance Due Date [...] Negative Ketones, ur, POC Negative Negative Specific Leland, POC 6.500(A) 1.003 - 1.030 Blood, ur, POC Large(A) Negative pH, ur, POC 6.5 5.0 - 8.0 Protein, ur, POC 300.(A) Negative Urobilinogen, urine, POC 0.2 0.2 - 1.0 mg/dL Nitrite, ur, POC Negative Negative Leukocytes, ur, POC Small(A) Negative Lot Number [id number] Urine 12/03/2024 7:49 PM CDT Elvie Lorenz NP POINT OF CARE TEST ORDERAB LES Final Result * (ABNORMAL) Urine culture Urine, clean voided (12/03/2024 7:09 PM CDT) Report Final Report: Greater than or equal to 100,000 colonies/mL of Escherichia coli Plus growth of clinically insignificant bacterial staci. (.) Comment:Testing performed by : [facility], [address] [place]., [address] Organism ESCHERICHIA COLI MATT Organism PLUS GROWTH OF CLINICALLY INSIGNIFICANT STACI. MATT Urine, clean voided 12/03/2024 7:09 PM CDT 12/04/2024 12:22 AM CDT Narrative MATT - 12/05/2024 3:29 PM CDT Testing performed by [facility] ([phone]) Organism Antibiotic Method Susceptibility Escherichia coli Ampicillin [...] MICROBIOLOGY - GENERAL ORDERABLES Final Result MATT [id number] Department of Laboratories [place], [place] [phone] from Last 3 Months Insurance HUMANA CHOICE MEDICARE PPO HU[employer]NA CHOICE MEDICARE PPO Care Teams Mail Officer Relationship Specialty Start Date End Date Marquiat Yu MD [address] [facility] [facility] [address] [place], [place] [id number] PCP - General Family Practice 05/08/23
--- OUTSIDE RECORDS SUMMARY | 2025-02-18 15:08 | XMS_ITS | Clinical Summary ---
Author Organization [facility] Address [address] [place] [address] Care Team Providers Care Early Childhood Specialist Name Role Phone Marquita Yu MD Primary Care Provider Source Comments [facility],non-owned Affiliates and Associated Physician Practices is amultiple site organization consisting of ambulatory clinics and hospital sitesin [place], [place], [place] and [place]. This disclosure is being madepursuant to the Care Everywhere program and may not contain all information available regarding this patient. Last updated 18.[employer] [facility] Allergies No known active allergies Medications * Be aware that medications may not be up to date on this document. Alwaysverify current medications with the patient. 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
[2025-02-18 16:38] LABS: MRSA (PCR) NOT DETECTED (NOT DETECTE)
== END 2025-02-18 13:48 | disposition home or self-care (01) ==
LOC: ANHSURGERY 13:50
PROVIDERS: PCP Family Medicine; Visit Provider Orthopaedic Surgery
DX: M75.102 Unspecified rotator cuff tear or rupture of left shoulder, not specified as traumatic (principal); I10 Essential (primary) hypertension; Z01.818 Encounter for other preprocedural examination
CPT/HCPCS: 36415; 85025; 87641; 93005

== ENCOUNTER 2025-03-10 00:58 | Day surgery (SDC) | payer MEDICARE, SELFPAY ==
--- NOTE | 2025-02-18 13:52 | PC.NURSE ---
Report to the Outpatient Waiting Room, entrance under the green pavilion located off [facility], at time _6 am on date __03/10/25 . Planned Procedure Time: _7:30 am .? Time changes happen often and if your time is changed the preop area will call you the afternoon before. - You and your visitor will be asked to self-screen and do not enter if you have any COVID symptoms. Please call surgeon if you need to reschedule. - A mask is optional within the hospital at this time. Patients may have clear liquids (water, carbonated beverages, clear teas, apple juice) until 3 hours prior to surgery ( 4:30 am) with a maximum of 20 ounces. - No food from midnight until time of surgery and no smoking, or chewing tobacco (or any form of nicotine). No chewing gum, candy or mints. Take only the following medications with a SIP of water on the morning of surgery: METOPROLOL DO NOT STOP ANY OF YOUR OTHER PRESCRIPTION MEDICATIONS PRIOR TO SURGERY EXCEPT THE FOLLOWING Hold all vitamins and supplements for 3 days per anesthesiologist.LAST DOSE 03/06/25 Medications to discontinue per physician NONE Please no make-up, nail german, hairspray, perfume, deodorant, or body powder the day of surgery.? No jewelry (including any body piercings) or valuables the day of surgery, leave them at home.? Please take a shower or bath the night before, or the morning of, surgery with an antibacterial soap.? Wear comfortable, loose fitting clothing.? Children are encouraged to wear pajamas. - Jewelry must be removed prior to entering the operating room.? Rings and piercings that are not removed may be cut off. - The hospital will not accept responsibility for valuables.? - Please leave all valuables, including medications, at home the day of surgery. If you are going home after surgery, a licensed driver wheelchair must drive you home.? - NO public transportation without another adult if you receive anesthesia. - We recommend that an adult stay with you for 24 hours following discharge. - We also recommend that you do not drive, make important decision, drink alcoholic beverages, or take any drugs that were not prescribed by your health care provider for at least 24 hours after your discharge time. For Pediatric surgeries, we recommend two adults accompany the child home. Follow any additional instructions given to you from your surgeon. VERBAL AND WRITTEN instructions given to _PATIENT_AND SPOUSE and asked if any additional questions and then verbalized understanding. Patient advised to call surgeon office or pre surgery nurse liaison [phone] if any additional questions.
[2025-02-18 13:56] VITALS: BMI 29.9
[2025-02-18 14:30] VITALS: BP 133/60; PULSE 64; RESP 18; TEMP 36.8; O2SAT 97
[2025-03-10] VITALS (12 sets, daily range): BP systolic 112–145; BP diastolic 51–69; PULSE 62–84; RESP 11–20; TEMP 36.1–36.8; O2SAT 91–98
--- NOTE | ~2025-03-10 | XR_ITS ---
EXAMINATION: XR shoulder LT min 2V DATE: 03/10/2025 09:54 INDICATION: Postop left shoulder TECHNIQUE: 3 images of the left shoulder were obtained. COMPARISON: None FINDINGS: Interval placement of a left shoulder arthroplasty. No fracture. Bones appear osteopenic. No dislocation of the left humeral head relative to the left glenohumeral joint.. Moderate degenerative change in the left acromioclavicular joint. IMPRESSION: 1. Interval placement of a left shoulder arthroplasty. Correlate clinically. Reviewed, dictated and finalized at location Q.
--- OUTSIDE RECORDS SUMMARY | 2025-03-10 01:01 | XMS_ITS | Clinical Summary ---
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 HELPER Plan of Treatment Health Maintenance Due Date Last Done Comments Depression Screening 1945 Fall Risk Assessment 1945 Hepatitis C Screening 1945 Osteoporosis Screening-Bone Density Scan 1945 DTaP/Tdap/Td Vaccine (1 - Tdap) 1956 Hepatitis B Screening 1963 Pneumococcal vaccine 65+ (1 of 1 - PCV) 1995 Zoster Vaccine (1 of 2) 1995 Well Visit 65+ 2010 Covid-19 Vaccine (3 - 2024-2 6 season) 2025 08/31/2020, 08/10/2020 Influenza Vaccine (#1) 2025 , 05/26/2019, 04/23/2018, Additional history exists Insurance HUMANA CHOICE MEDICARE PPO HUMANA CHOICE MEDICARE PPO Care Teams Rn Gastroenterology Relationship Specialty Start Date End Date Marquita Yu MD [facility] [facility] [address] [place] [address] PCP - General Family Practice 05/08/23
--- OUTSIDE RECORDS SUMMARY | 2025-03-10 01:01 | XMS_ITS | Clinical Summary ---
Author Organization [facility] Address [address] [place] [address] Care Team Providers Care Contact Center Analyst Name Role Phone Marquita Yu MD Primary Care Provider Source Comments [facility],non-owned Affiliates and Associated Physician Practices is amultiple site organization consisting of ambulatory clinics and hospital sitesin [place], [place], [place] and [place]. This disclosure is being madepursuant to the Care Everywhere program and may not contain all information available regarding this patient. Last updated 18.[employer] [facility] Allergies No known active allergies Medications * Be aware that medications may not be up to date on this document. Alwaysverify current medications with the patient. 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
[2025-03-10] MEDS: ACETAMINOPHEN 500 MG TABLET 1000 MG PO (06:55)
[2025-03-10] MEDS: TRANEXAMIC ACID 1,000MG/ISO100 1,000 MG/100 ML BAG 200 MG IVPB (06:55)
--- NOTE | 2025-03-10 06:57 | WPDANESEPPF ---
Anes - Initial Pre Proc Eval Procedure: Operation Date: 03/10/25 07:30 Proposed Procedures p Left Total Shoulder Reverse Arthroplasty - Jeremy Isidro MD Date/Time: 03/10/25 06:57 Surgeon: Jeremy Isidro MD Pre Op Diagnosis: left complete rotator cuff tear Patient Data Age: 79 Gender: F Height: 1.56 m Weight: 73.2 kg Last Vital Signs Temp 98.2 F 02/18/25 14:30 Pulse 64 02/18/25 14:30 Resp 18 02/18/25 14:30 BP 133/60 02/18/25 14:30 Pulse Ox 97 02/18/25 14:30 O2 Del Method Room Air 02/18/25 14:30 Allergies Allergy/AdvReac Type Severity Reaction Status Date / Time No Known Allergies Allergy Verified 02/25/25 15:50 Home Medications ?Medication ?Instructions ?Recorded ?Confirmed ?Type multivitamin with iron 1 tablet PO DAILY 01/03/22 02/25/25 History upadacitinib 45 mg tablet,extended 15 mg (0.3333 x 45 mg) PO DAILY 05/02/24 02/25/25 Rx release 24 hr (Rinvoq) #90 tabs metoprolol succinate 50 mg 50 mg PO DAILY #90 tabs 08/05/24 02/25/25 Rx tablet,extended release 24 hr losartan 25 mg tablet 25 mg PO DAILY #90 tabs 01/19/25 02/25/25 Rx oxybutynin chloride 5 mg tablet 5 mg PO DAILY #90 tabs 01/20/25 02/25/25 Rx acetaminophen 500 mg tablet 500 mg PO Q6H PRN pain 02/18/25 02/25/25 History (Acetaminophen Extra Strength) cholecalciferol (vitamin D3) 50 50 mcg PO DAILY 02/18/25 02/25/25 History mcg (2,000 unit) capsule ciprofloxacin HCl 500 mg tablet 500 mg PO Q12H #14 tabs 02/25/25 02/25/25 Rx phenazopyridine 100 mg tablet 100 mg PO TID PRN pain with 02/25/25 02/25/25 Rx (Pyridium) urination 6 doses #6 tabs Laboratory Tests 03/10/25 06:33 Blood Type Pending Antibody Screen Pending Patient hx anesthesia problems: none Family hx anesthesia problems: none Results Review: All pre-operative results and documents have been reviewed as part of the pre-operative evaluation. [facility] Past Medical History Medical History Left sided colitis Mild pulmonary hypertension Paroxysmal atrial tachycardia Prolapse of bladder Umbilical hernia Esophageal ring Ulcerative colitis SANTOS (iron deficiency anemia) Chronic constipation Diverticula of intestine SANTOS (iron deficiency anemia) Osteopenia OAB (overactive bladder) Essential hypertension Hyperlipidemia Osteoarthritis Surgical History Surgical History History of bladder surgery History of cholecystectomy (Unknown) H/O: hysterectomy (~1994) Family History Family History Father Hypertension Family history of chronic obstructive pulmonary disease Mother Hypertension Family history of diabetes mellitus in first degree relative Sibling Hypertension Cerebrovascular accident COPD (chronic obstructive pulmonary disease) Heart disease Afib Social History Social History Social History: Ashley is and lives in [place], they have 3 children-6 grandchildren-3 great-grandchildren. 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 Caffeine- soda Smoking status: Never smoker Alcohol intake: never Substance use: never Substance use type: does not use Do You Feel Safe in your Home?: Yes Lack of Transportation: No Lack of Food: Never True Current Housing: I Have Housing Concerned About Future Housing: No Difficulty Paying Gas/Electric Bills: No Difficulty Paying for Meds: Decline to Answer Currently Unemployed: No Education: Bachelor's Degree Difficulty w/ Childcare or Family Care: No Living arrangements: with family Occupation/Education: retired Gender identity (if verbalized by the patient): Female Sexual Orientation (if Verbalized by the Patient): Straight or Heterosexual Spiritual care concerns: No Anes - Eval Final PreProcedure Day of Procedure 03/10/25 06:57 Patient weight: obese Lungs: normal air movement Airway: Mallampati scale class III Neurological: alert and oriented Last oral intake: >/= 8 hours ASA classification: III Emergent: no Anesthetic plan: proceed Anesthesia type and monitoring: general ETT and standard monitoring Results Review: All pre-operative results and documents have been reviewed as part of the pre-operative evaluation. HTN, hyperlipid by hx (no meds), BMI 30, UC, now. Pt can still walk 1-2 fos, no cp or sob doing laundry. Stress test 2021 without ischemia. Informed Consent: The patient's anesthetic plan and its attendant risks and benefits were discussed with the patient/family/POA. Questions were solicited and answers provided to the satisfaction of the patient/family/POA.
--- NOTE | 2025-03-10 07:24 | WPDHPUPDATE1 ---
History and Physical Update Update Date/Time: 03/10/25 07:24 History and Physical has been reviewed, including an updated exam of the patient. There are NO changes in the patient's condition. Risks, benefits, and alternatives have been discussed and questions answered. Patient agrees to proceed with procedure.
[2025-03-10] MEDS: ceFAZolin 2 GM in SODIUM CHLORIDE 0.9% IV 50 ML 100 ML IVPB ×3 (07:25→23:58)
[2025-03-10] MEDS: SODIUM CHLORIDE 0.9% IV 37.7 ML, MORPHINE SULFATE INJ (*CRX) 2 MG, ROPivacaine HCL 1% 2... INFILTRATE (08:09)
[2025-03-10] MEDS: TRANEXAMIC ACID 1,000 MG/10 ML AMPUL 1000 MG IV PUSH (08:59)
--- NOTE | 2025-03-10 09:19 | W.PM.PROC2 ---
Procedure Note - Detailed Date of Procedure 03/10/25 Pre-op Diagnosis Left massive rotator cuff tear Post-op Diagnosis Same Procedure Performed Reverse total shoulder arthroplasty, left Surgeon Jeremy Isidro MD Anesthesia General Findings Massive tear of supra and infraspinatus. Small stature. 5 degree augment. Satisfactory bone quality. Description of Procedure Preoperative antibiotics were given. The patient was transferred to the operating room and a general anesthetic was administered. The beach chair position was used at 45 degrees. All bony prominences were padded. The head was carefully stabilized on the [facility] head greenskeeper. A sterile prep and drape was performed in the usual manner with ChloraPrep. A longitudinal incision was created at the anterior shoulder just lateral to the deltopectoral interval. Careful dissection was performed to expose the interval and protect the cephalic vein. The vein was retracted medially. Anterior circumflex vessel branches were suture ligated. The biceps was tenodesed. A subscapularis tenotomy was performed. The inferior capsule was released, exposing the humeral head. Osteophytes were removed. Care was taken to stay on bone to protect the axillary nerve. The neck anteversion and inclination were carefully assessed. Version was between 20? and 30?. The anatomic head cut was taken with the oscillating saw. The cut protector was placed, and attention was turned to the glenoid. Retractors were placed. Releases were carried out for exposure. The subscapularis was mobilized, the inferior capsule and long head of triceps released, and the superior and middle glenohumeral ligaments released as well. Labral tissue was resected as needed. Version and inclination were corrected according to preoperative templating. The sizing template was used to assess the baseplate position low on the glenoid, with an approximate 10 degrees corrections of retroversion and 0 degrees of inclination. A guide pin was placed. Minimal reaming was used to accomplish a flat surface without violating the subchondral bone. The boss was drilled, and the real component was impacted into position. The central compression screw was placed. Supplemental locking screws were placed superiorly, anteriorly and inferiorly. The glenosphere was impacted into the taper. Attention was turned to the humerus. The guide pin was placed, central drilling performed, and the broach trial inserted. The proximal humerus was reamed for the inset component. The humeral components were trialed. The real humeral stem, tray, and insert were impacted into position. The shoulder was copiously irrigated periodically with pulsatile lavage. The shoulder was reduced and stability confirmed. 1 gram of Vancomycin powder was placed in the joint. The subscapularis impinged and was taught. Given the weak external rotation, was not repaired. A lesser tuberoplasty was performed. Coracobrachialis impingement was no longer present. The remaining tissue was closed with 2-0 Vicryl, 3-0 Stratafix and 4-0 Stratafix, and steri-strips. A sterile silver occlusive dressing and shoulder immobilizer were placed. The patient was transferred to the recovery room. Implants Shoulder Innovations reverse TSA size 1 stem. +3 polyethylene insert. 5 augmented baseplate. 33 + 3 mm glenosphere. Estimated Blood Loss 200 Drains No Pathology None sent Complications No immediate complications Condition Stable Disposition PACU [facility] Billing Surgery - Charge Forward: Surgery Billing
[2025-03-10] MEDS: LACTATED RINGERS 1,000 ML 30 ML IV CONT ×2 (09:33)
[2025-03-10] MEDS: fentaNYL CITRATE INJ (*CRX) 100 MCG/2 ML VIAL 25 MCG IV PUSH ×4 (09:57→10:10)
[2025-03-10] MEDS: SENNA/DOCUSATE SODIUM TABLET 2 TAB PO ×2 (11:20→17:48)
[2025-03-10] MEDS: ACETAMINOPHEN 325 MG TABLET 650 MG PO ×2 (11:21→17:48)
[2025-03-10] MEDS: ASPIRIN 81 MG ENTERIC TABLET PO ×2 (11:21→20:40)
[2025-03-10] MEDS: FAMOTIDINE 20 MG TABLET PO ×2 (11:21→20:40)
[2025-03-10] MEDS: SODIUM CHLORIDE 0.9% IV 1,000 ML 125 ML IV CONT (11:22)
[2025-03-10] MEDS: LOSARTAN POTASSIUM 25 MG TABLET PO (11:36)
[2025-03-10] MEDS: oxyCODONE/ACETAMINOPHEN (*CRX) 5-325 MG TABLET 1 TABLET PO (18:51)
[2025-03-11] MEDS: SODIUM CHLORIDE 0.9% IV 1,000 ML 125 ML IV CONT ×2 (00:07→06:11)
[2025-03-11] MEDS: ACETAMINOPHEN 325 MG TABLET 650 MG PO ×2 (00:08→06:08)
[2025-03-11 03:19] VITALS: BP 110/51; PULSE 80; RESP 16; TEMP 36.5; O2SAT 95
[2025-03-11 05:47] LABS: Hematocrit 33.0 % (37.0-47.0); Hemoglobin 10.8 g/dL (12.0-15.0); Immature Granulocyte Percent A 0.6 % (0-0.5); Lymphocytes Absolute Auto 0.90 K/mm3 (0.9-3.2); Mean Corpuscular HGB Conc 32.7 g/dl (32-36); Mean Corpuscular Hemoglobin 32.7 pg (26-34); Mean Corpuscular Volume 100.0 fl (80-100); Nucleated Red Blood Cells Absolute Auto 0.000 K/mm3 (0.0-0.012); Nucleated Red Blood Cells Perc 0.0 % (0.0-0.2); Platelet Count Result 273 k/mm3 (150-375); Red Blood Count 3.30 M/mm3 (4.2-5.4); White Blood Count 14.4 K/mm3 (4.5-10.0)
[2025-03-11 06:04] LABS: Anion Gap 6 mmol/L (4-12); Blood Urea Nitrogen 23 mg/dL (7-17); Calcium 8.4 mg/dL (8.4-10.2); Carbon Dioxide 26 mmol/L (22-30); Chloride 104 mmol/L (98-107); Estimated CRCL calculation 44 ml/min; Estimated Glomerular Filt Rate > 60; Glucose 102 mg/dL (65-110); Potassium 4.4 mmol/L (3.4-5.0); Sodium 136 mmol/L (137-145)
[2025-03-11] MEDS: ceFAZolin 2 GM in SODIUM CHLORIDE 0.9% IV 50 ML 100 ML IVPB (06:10)
[2025-03-11 08:01] VITALS: PULSE 80
[2025-03-11] MEDS: METOPROLOL SUCCINATE EXT REL 50 MG TABCR PO (08:01)
[2025-03-11] MEDS: SENNA/DOCUSATE SODIUM TABLET 2 TAB PO (08:01)
[2025-03-11] MEDS: LOSARTAN POTASSIUM 25 MG TABLET PO (08:02)
[2025-03-11] MEDS: ASPIRIN 81 MG ENTERIC TABLET PO (08:02)
[2025-03-11 08:22] VITALS: BP 127/60; PULSE 72; RESP 16; TEMP 36.3; O2SAT 94
== END 2025-03-11 09:45 | disposition home or self-care (01) ==
LOC: ANHSURGERY 07:04 → ANH3MEDSUR 10:40
PROVIDERS: Physician Assistant Surgical; PCP Family Medicine; Visit Provider Orthopaedic Surgery
PROC: (CPT 23472; principal; 2025-03-10 07:30)
DX: M75.122 Complete rotator cuff tear or rupture of left shoulder, not specified as traumatic (principal); I10 Essential (primary) hypertension; E78.5 Hyperlipidemia, unspecified; D50.9 Iron deficiency anemia, unspecified; N32.81 Overactive bladder; I27.20 Pulmonary hypertension, unspecified; I47.19 Other supraventricular tachycardia; K59.09 Other constipation; M19.90 Unspecified osteoarthritis, unspecified site; X58.XXXA Exposure to other specified factors, initial encounter; E66.9 Obesity, unspecified; Z68.30 Body mass index [BMI] 30.0-30.9, adult; Z98.890 Other specified postprocedural states; Z90.49 Acquired absence of other specified parts of digestive tract; Z87.448 Personal history of other diseases of urinary system; Z87.19 Personal history of other diseases of the digestive system; Z82.49 Family history of ischemic heart disease and other diseases of the circulatory system
CPT/HCPCS: 23472; 36415; 73030; 80048; 85025; 86850; 86900; 86901; 97110; 97161; 97166; 97530; 97535; J0690; A4565; A9270; C1776; J0166; J1100; J1885; J2003; J2270; J2405; J2704; J2795; J3010; J3373; J7030; J7120

== ENCOUNTER 2025-06-09 09:10 | Outpatient (CLI) | payer MEDICARE, SELFPAY ==
--- OUTSIDE RECORDS SUMMARY | 2025-06-09 09:27 | XMS_ITS | Clinical Summary ---
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 Gender Identity Not on file Sexual Orientation [...] 157.5 cm (5' 2) 07/15/2024 11:18 AM SPECIAL DELIVERY MESSENGER Body Mass Index 29.67 07/15/2024 11:18 AM SPECIAL DELIVERY MESSENGER Plan of Treatment Health Maintenance Due Date Last Done Comments Depression Screening 1945 Fall Risk Assessment 1945 Osteoporosis Screening-Bone Density Scan 1945 DTaP/Tdap/Td [...] PPO HUMANA CHOICE MEDICARE PPO Care Teams Attending Radiologist Relationship Specialty Start Date End Date Marquita Yu MD [address] [place], [place] [id number] PCP - General Family Practice 05/08/23
--- OUTSIDE RECORDS SUMMARY | 2025-06-09 09:27 | XMS_ITS | Clinical Summary ---
Author Organization [facility] Address [address] [place] [address] Care Team Providers Care Lobby Porter Name Role Phone Marquita Yu MD Primary Care Provider Source Comments [facility],non-owned Affiliates and Associated Physician Practices is amultiple site organization consisting of ambulatory clinics and hospital sitesin [place], [place], [place] and [place]. This disclosure is being madepursuant to the Care Everywhere program and may not contain all information available regarding this patient. Last updated 18.[employer] [facility] Allergies No known active allergies Medications * Be aware that medications may not be up to date on this document. Alwaysverify current medications with the patient. 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
[2025-06-09 13:24] LABS: Hematocrit 38.4 % (37.0-47.0); Hemoglobin 12.6 g/dL (12.0-15.0); Immature Granulocyte Percent A 0.2 % (0-0.5); Lymphocytes Absolute Auto 1.74 K/mm3 (0.9-3.2); Mean Corpuscular HGB Conc 32.8 g/dl (32-36); Mean Corpuscular Hemoglobin 32.0 pg (26-34); Mean Corpuscular Volume 97.5 fl (80-100); Nucleated Red Blood Cells Absolute Auto 0.000 K/mm3 (0.0-0.012); Nucleated Red Blood Cells Perc 0.0 % (0.0-0.2); Platelet Count Result 314 k/mm3 (150-375); Red Blood Count 3.94 M/mm3 (4.2-5.4); White Blood Count 9.0 K/mm3 (4.5-10.0)
[2025-06-09 13:37] LABS: Alanine Aminotransferase 29 U/L (6-35); Albumin Level 4.3 g/dL (3.5-5.1); Alkaline Phosphatase 112 U/L (38-126); Anion Gap 6 mmol/L (4-12); Aspartate Amino Transferase 48 U/L (14-36); Bilirubin,Total 0.7 mg/dL (0.2-1.3); Blood Urea Nitrogen 25 mg/dL (7-17); Calcium 9.4 mg/dL (8.4-10.2); Carbon Dioxide 29 mmol/L (22-30); Chloride 100 mmol/L (98-107); Cholesterol 240 mg/dL (0-200); Estimated Glomerular Filt Rate > 60; Glucose 86 mg/dL (65-110); HDL Direct 54 mg/dL; Potassium 4.5 mmol/L (3.4-5.0); Sodium 135 mmol/L (137-145); Total Protein 7.3 g/dL (6.3-8.2); Triglycerides 286 mg/dL (<150)
[2025-06-09 13:48] LABS: Add Urine Microscopic? YES; Appearance Urine Turbid (Clear); Glucose Urine UA Negative (Negative); Leukocyte Esterase Ur 3+ LEU/UL (Negative); Need Manual Microscopic Reviewed; Nitrate Urine Negative (Negative); Specific Grav Ur 1.011 (1.001-1.035)
[2025-06-09 14:04] LABS: Thyroid Stimulating Hormone Reflex 3.760 uIU/mL (0.465-4.68)
== END 2025-06-09 09:11 | disposition home or self-care (01) ==
PROVIDERS: PCP Nurse Practitioner Family; Visit Provider Nurse Practitioner Family
DX: E78.5 Hyperlipidemia, unspecified (principal); I10 Essential (primary) hypertension; E55.9 Vitamin D deficiency, unspecified; R39.9 Unspecified symptoms and signs involving the genitourinary system
CPT/HCPCS: 36415; 80053; 80061; 81001; 82306; 84443; 85025